=== PATIENT | female | born 1965 | race Caucasian/White ===

== ENCOUNTER 2023-12-14 16:32 | Inpatient (IN) | payer OTHER, SELFPAY ==
[2023-12-14] VITALS (7 sets, daily range): BP systolic 100–124; BP diastolic 69–86; BMI 31.2; BMI 31.5
--- NOTE | 2023-12-14 13:18 | ED.GENMED ---
History of Present Illness
<Prince Manjarrez PA-C - Last Filed: 12/14/23 16:14>
General
Chief Complaint: Swelling
Source: patient
Time Seen by Provider: 12/14/23 13:03
Travel History
Have you had any contact with someone who has COVID-19?: No
Do you have any symptoms of coronavirus? Fever > 100 degrees, chills, cough, shortness of breath, sore throat, loss of taste or smell, muscle aches, or headache?: No
History of Present Illness
History of Present Illness:
58-year-old female with past medical history of rheumatoid arthritis/osteoarthritis/chronic musculoskeletal pain, hepatitis C (was treated at [facility] and told she was cured) presenting to the emergency department for evaluation of
generalized edema noting that the swelling seems to be worse along her abdomen but also noting edema to the bilateral feet/ankles, exertional shortness of breath and scattered areas of ecchymosis that are mostly concentrated along her back that she
states all started acutely around 1 week ago. Also endorses that she feels her skin is a little bit more pale than usual. She denies any melena or hematochezia, traumatic injuries, chest pain, palpitations, diaphoresis. denies any history of
similar. Patient's social history was significant for smoking half pack per day, weekend drinking noting that she will drink approximately a few shots per day on the weekend and notes a previous history of IV drug abuse but this was many years ago
and denies any recent use. Family history was also significant for her sister passing away at a younger age is unknown what she from did note that patient had a history of alcoholic cirrhosis.
Past History
<Prince Manjarrez PA-C - Last Filed: 12/14/23 16:14>
Past History
ED Past Medical History: GERD, Seizures (Is on Tegretol and states she hasn't had a seizure in over 20 years. ), Psychiatric (depression), Other (Arthritis/osteoarthritis), Other (Previous hepatitis C) and Other (History of chronic low back pain.
Has had pain injections and sees her doctor on a monthly basis for back pain 'stenosis.' She takes oxycodone and hydrocodone for pain.)
ED Past Surgical History: and Orthopedic
Social History
Tobacco: Smoker
Alcohol: Other (Drinks every weekend)
Drug: Former user and IVDA
Personal:
Living: with family
Employment: Employed
Review of Systems
<Prince Manjarrez PA-C - Last Filed: 12/14/23 16:14>
Review of Systems
All Other Systems: ROS reviewed and negative except as documented in HPI and ROS
Phy Exam
<ESTEFANI Sigala Last Filed: 12/14/23 16:14>
Physical Exam
Physical Exam:
GENERAL: Alert , in no apparent distress
EYE: clear conjunctiva b/l
HEAD: NCAT
ENT: o/p clr, mmm.
CARDIAC: Mildly tachycardic rate and rhythm, no murmur
LUNGS: Clear breath sounds bilaterally, no acute respiratory distress, no wheezes/rales/rhonchi
ABDOMEN: Firm and significantly distended with positive fluid wave, without focal tenderness, no r/g, no cvat, There are scattered areas of ecchymosis across the upper abdomen and axillary region
NEUROLOGICAL: Alert and orientedx3
SKIN: Warm and dry, skin intact. anicteric
MUSCULOSKELETAL: trace b/l ankle edema(L>R), well perfused.
PSYCH: Normal and appropriate interaction.
Scores
<ESTEFANI Sigala Last Filed: 12/14/23 16:14>
Heart Failure Risk
Heart Failure Risk Score: Not Applicable
Heart Score for Chest Pain Patients
STEMI patient?: Not applicable
Withdrawal Assessment of Alcohol
Withdrawal Assessment Completed?: Not applicable
Course
<ESTEFANI Sigala Filed: 12/14/23 16:14>
Orders/Labs/Results
Orders:
Orders
12/14/23 13:16
US Abdomen Complete/Upper Urgent
Comment:
Reason For Exam: acute onset distention/ascites
12/14/23 13:17
Electrocardiogram (*1) Stat
Reason for Study: Abdominal Pain
EKG- Treatment ONCE
12/14/23 13:30
Basic Metabolic Panel Urgent
Lipase Urgent
NT-proBNP Urgent
PTT Urgent
Prothrombin Time Urgent
12/14/23 13:31
Complete Blood Count/With Diff Urgent
12/14/23 15:35
Type+Screen Urgent
BBK Wristband Number:
[id number] Urgent
Urinalysis Reflex To Culture Urgent
Date Specimen was Collected: 12/14/23
Time Specimen was Collected: 15:13
Urine Microscopic Reflex Cult Urgent
Urine Culture Urgent
ANALI Source: U
Specimen Description:
Date Specimen was Collected: 12/14/23
Time Specimen was Collected: 15:13
Abnormal Lab Results
12/14/23 12/14/23 12/14/23
13:30 13:31 15:35
RBC 2.80 L 10^6/uL
(4.20-5.40)
Hgb 9.5 L g/dL
(12.0-16.0)
Hct 28.9 L %
(37.0-47.0)
MCV 103.2 H fL
(81.0-99.0)
MCH 33.9 H pg
(27.0-31.0)
MCHC 32.9 L g/dL
(33.0-37.0)
RDW 16.0 H %
(11.5-14.5)
Plt Count 82 L 10^3/uL
(130-400)
Absolute Lymphs (auto) 0.8 L 10^3/uL
(1.2-3.4)
Absolute Monos (auto) 0.8 H 10^3/uL
(0.1-0.6)
Lymphocytes % 15.0 L %
(20.5-51.1)
Monocytes % 14.5 H %
(1.7-9.3)
PT 17.6 H Sec
(11.4-14.6)
APTT 40.3 H Sec
(23.4-35.0)
Sodium 132 L mmol/L
(135-145)
Creatinine 0.5 L mg/dL
(0.6-1.0)
Glucose 107 H mg/dl
(70-99)
Calcium 8.2 L mg/dl
(8.4-10.2)
Total Bilirubin 1.5 H mg/dl
(0.2-1.3)
Direct Bilirubin 0.9 H mg/dl
(0.0-0.4)
AST 98 H U/L
(14-36)
Alkaline Phosphatase 146 H U/L
(38-126)
Albumin 3.0 L g/dl
(3.5-5.0)
Urine Ketones Trace A
(Negative)
Urine Nitrite (Reflex) Positive A
(Negative)
Urine Bilirubin 2+ A
(Negative)
Urine Urobilinogen 3+ A
(Neg - 1+)
Leukocyte Esterase Rfl 1+ A
(Negative)
12/14/23 13:31
12/14/23 13:30
Vital Signs
Initial and Last Documented VS:
Initial Vital Signs
Temp Pulse Resp BP Pulse Ox
98.1 F 113 16 121/72 95
12/14/23 12:06 12/14/23 12:06 12/14/23 12:06 12/14/23 12:06 12/14/23 12:06
Last Documented Vital Signs
Temp Pulse Resp BP Pulse Ox
98.1 F 100 13 109/78 88
12/14/23 12:06 12/14/23 14:15 12/14/23 14:15 12/14/23 14:00 12/14/23 14:15
Environmental Restoration Planner consulted with Physician
Environmental Restoration Planner consulted with physician?: Yes
Name of Physician Consulted: Destiny
<Arturo Dixon, DO - Last Filed: 12/14/23 13:58>
Orders/Labs/Results
Orders:
Orders
12/14/23 13:16
US Abdomen Complete/Upper Urgent
Comment:
Reason For Exam: acute onset distention/ascites
12/14/23 13:17
Electrocardiogram (*1) Stat
Reason for Study: Abdominal Pain
EKG- Treatment ONCE
12/14/23 13:30
Basic Metabolic Panel Urgent
Lipase Urgent
NT-proBNP Urgent
PTT Urgent
Prothrombin Time Urgent
12/14/23 13:31
Complete Blood Count/With Diff Urgent
12/14/23 15:35
Type+Screen Urgent
BBK Wristband Number:
[id number] Urgent
Urinalysis Reflex To Culture Urgent
Date Specimen was Collected: 12/14/23
Time Specimen was Collected: 15:13
Urine Microscopic Reflex Cult Urgent
Urine Culture Urgent
ANALI Source: U
Specimen Description:
Date Specimen was Collected: 12/14/23
Time Specimen was Collected: 15:13
Abnormal Lab Results
12/14/23 12/14/23 12/14/23
13:30 13:31 15:35
RBC 2.80 L 10^6/uL
(4.20-5.40)
Hgb 9.5 L g/dL
(12.0-16.0)
Hct 28.9 L %
(37.0-47.0)
MCV 103.2 H fL
(81.0-99.0)
MCH 33.9 H pg
(27.0-31.0)
MCHC 32.9 L g/dL
(33.0-37.0)
RDW 16.0 H %
(11.5-14.5)
Plt Count 82 L 10^3/uL
(130-400)
Absolute Lymphs (auto) 0.8 L 10^3/uL
(1.2-3.4)
Absolute Monos (auto) 0.8 H 10^3/uL
(0.1-0.6)
Lymphocytes % 15.0 L %
(20.5-51.1)
Monocytes % 14.5 H %
(1.7-9.3)
PT 17.6 H Sec
(11.4-14.6)
APTT 40.3 H Sec
(23.4-35.0)
Sodium 132 L mmol/L
(135-145)
Creatinine 0.5 L mg/dL
(0.6-1.0)
Glucose 107 H mg/dl
(70-99)
Calcium 8.2 L mg/dl
(8.4-10.2)
Total Bilirubin 1.5 H mg/dl
(0.2-1.3)
Direct Bilirubin 0.9 H mg/dl
(0.0-0.4)
AST 98 H U/L
(14-36)
Alkaline Phosphatase 146 H U/L
(38-126)
Albumin 3.0 L g/dl
(3.5-5.0)
Urine Ketones Trace A
(Negative)
Urine Nitrite (Reflex) Positive A
(Negative)
Urine Bilirubin 2+ A
(Negative)
Urine Urobilinogen 3+ A
(Neg - 1+)
Leukocyte Esterase Rfl 1+ A
(Negative)
12/14/23 13:31
12/14/23 13:30
Vital Signs
Initial and Last Documented VS:
Initial Vital Signs
Temp Pulse Resp BP Pulse Ox
98.1 F 113 16 121/72 95
12/14/23 12:06 12/14/23 12:06 12/14/23 12:06 12/14/23 12:06 12/14/23 12:06
Last Documented Vital Signs
Temp Pulse Resp BP Pulse Ox
98.1 F 100 13 109/78 88
12/14/23 12:06 12/14/23 14:15 12/14/23 14:15 12/14/23 14:00 12/14/23 14:15
<Prince Manjarrez PA-C - Last Filed: 12/14/23 16:14>
MDM/Problems Addressed
Differential Diagnosis Includes:
Abdominal ascites, alcohol use, hemolysis, hepatitis, no infectious symptoms to be suggestive of SBP, CHF, valvular disorder, pulmonary hypertension
MDM/Problems Addressed:
58-year-old female presenting to the emergency department for evaluation of abdominal distention, lower extremity edema and exertional shortness of breath that began acutely and worsening over the last week. Patient does have multiple risk factors
for liver disease including alcohol history, history of hepatitis C and family history. Exam seems to be most consistent with abdominal ascites. Will check labs, ultrasound imaging, EKG ordered for the rest of breath. Disposition pending
<Prince Manjarrez PA-C - Last Filed: 12/14/23 16:14>
*Radiology
Radiology exam reviewed: radiology read reviewed (Liver cirrhosis and moderate ascites)
*Pulse Oximetry
Patient hypoxic: no
*EKG
Interpreted by ED Provider?: Yes
Comparison EKG: no changes
Heart Rate: 98
Rate: normal
Rhythm: sinus
[place]: normal axis
Ischemia: no ischemia
*Boiler Technician Interpretation
Rate: tachycardiac
Rhythm: sinus
*Critical Care Note
Total Time (30-74mins, 75-104mins- exclusive of procedures): Not Applicable
Data Reviewed
Review of Other/Old Records Reveals: Labs and Records
Source: patient and records
<Prince Manjarrez PA-C - Last Filed: 12/14/23 16:14>
Patient Management
Discussion with other providers: Hospitalist and Service Center Technician
Escalation/DeEscalation of care consider admission/obs:
I discussed the case with on-call GI physician, Dr. Watkins, likely needs paracentesis. They will consult. Hospitalist is aware and accepts patient for continued evaluation and treatment. Patient's urinalysis did come back nitrite positive and 1+
leukocyte esterase. She does not have any symptoms to be suggestive of a urinary tract infection so will defer antibiotic treatment to hospitalist team.
ED Attending Note
<Prince Manjarrez PA-C - Last Filed: 12/14/23 16:14>
-
Portions of this chart may have been created with voice recognition software.� Occasional wrong word or��sound alike� substitutions may have occurred due to the inherent limitations of voice recognition software.
<Arturo Dixon DO - Last Filed: 12/14/23 13:58>
ED Attending Note
Patient seen and examined by attending physician: Yes
I performed the substantive portion of visit, reviewed & personally made and approve the management plan that is documented in note by myself or MARJORIE.: Yes
ED Attending Note:
I agree with Jaun's note
Patient presents for evaluation of generalized swelling and some shortness of breath patient's noted that her abdomen has become quite swollen over the past couple weeks. Also noted peripheral edema edema of her buttocks
History of hepatitis C but up evidently received treatment for this. Patient does drink but denies daily alcohol use.
General: Awake, Alert, Oriented X3. No acute distress.
Vitals: Mildly tachycardic
Head: Atraumatic
Eyes: Pupils equal, EOMI
Throat: Airway intact, no exudates
Neck: Trachea midline
Lungs: Clear and equal b/l
Heart: Regular rate, no murmurs
Abd: Soft, protuberant abdomen, has significant tenderness, No pulsatile mass
Neuro: Nonfocal
Skin: Warm, dry, no rash
Extremities: pulses equal b/l, 2+ edema. Some telangiectasias noted
Discharge Plan
Departure
Patient Disposition: Admit
Date of Disposition: 12/14/23
Time of Disposition: 15:29
Presentation/result/management discussed w/ accepting MD/DO: Hospitalist
Discharge Problem:
Cirrhosis of liver, Abdominal ascites, Anemia, Thrombocytopenia
Prescriptions:
No Action
quetiapine [Seroquel] 200 MG tablet
200 mg PO HS
sertraline 100 MG tablet
200 mg PO HS
omeprazole 40 MG capsule,delayed release(DR/EC)
40 mg PO DAILY
folic acid 1 mg Tablet
1 mg PO DAILY Qty: 0
hydroxychloroquine 200 MG tablet
200 mg PO BID
pregabalin 300 MG capsule
300 mg PO DAILY
cholecalciferol (vitamin D3) [Vitamin D3] 25 mcg (1,000 unit) Tablet
25 mcg PO DAILY Qty: 0
alendronate [Fosamax] 70 mg Tablet
70 mg PO MO
cyanocobalamin (vitamin B-12) 1,000 mcg Tablet
1,000 mcg PO DAILY
Theragen Tablet
1 tab PO DAILY
phenytoin sodium extended 100 mg capsule
100 mg PO BID
milk thistle 150 mg Capsule
150 mg PO DAILY
potassium 99 mg Tablet
99 mg PO DAILY
calcium carbonate [Calcium 500] 500 mg calcium (1,250 mg) Tablet
500 mg PO DAILY
alprazolam 2 mg tablet
2 mg PO TID
doxycycline hyclate 100 mg Tablet
100 mg PO Q48H
Excedrin Extra Strength 250-250-65 mg Tablet
1 tab PO BID
biotin 5 mg Tablet
5 mg PO DAILY
oxycodone 20 mg Tablet
20 mg PO 5/D
acetaminophen [Tylenol Extra Strength] 500 MG tablet
1,000 mg PO BID
Referrals:
Burton Newman MD [Family Provider] -
Interventions
Interventions:
*Risk Screen - Suicide Last Done: 12/14/23 12:06
*General Assessment Last Done: 12/14/23 12:06
*Neglect/Abuse Screening Last Done: 12/14/23 12:06
ED- Fall Risk Assessment Last Done: 12/14/23 13:15
*ED COVID-19 Vaccine History Last Done: 12/14/23 13:15
ED- Cardiac Assessment Last Done: 12/14/23 13:15
ED- Pulmonary Assessment Last Done: 12/14/23 13:15
ED-Skin Assessment Last Done: 12/14/23 13:15
[2023-12-14 13:45] LABS: % Basophils 0.7 % (0-2); % Eosinophils 2.4 % (0-6); % Immature Granulocytes 0.5 % (0-0.5); % Monocytes 14.5 % (1.7-9.3); % Neutrophils 66.9 % (42.2-75.2); Absolute Eosinophils 0.1 10^3/uL (0-0.7); Absolute Lymphocytes 0.8 10^3/uL (1.2-3.4); Absolute Monocytes 0.8 10^3/uL (0.1-0.6); Absolute Neutrophils 3.7 10^3/uL (1.4-6.5); Hematocrit 28.9 % (37.0-47.0); Hemoglobin 9.5 g/dL (12.0-16.0); Mean Corp Hgb Conc. 32.9 g/dL (33.0-37.0); Mean Corpuscular Hgb 33.9 pg (27.0-31.0); Mean Corpuscular Volume 103.2 fL (81.0-99.0); Nucleated Red Blood Cells % 0 %; Platelet Count 82 10^3/uL (130-400); White Blood Cell Count 5.5 10^3/uL (4.8-10.8)
[2023-12-14 13:55] LABS: INR 1.46; PT 17.6 Sec (11.4-14.6)
[2023-12-14 13:57] LABS: APTT 40.3 Sec (23.4-35.0)
[2023-12-14 14:01] LABS: Blood Urea Nitrogen 11 mg/dl (7-17); Calcium 8.2 mg/dl (8.4-10.2); Carbon Dioxide 29 mmol/L (22-30); Chloride 101 mmol/L (98-107); Estimated Creatinine Clearance 113 ml/min; Glucose 107 mg/dl (70-99); Lipase 93 U/L (23-300); Sodium 132 mmol/L (135-145); eGFR > 60.00
[2023-12-14 14:05] LABS: NT-proBNP 142 pg/ml
--- NOTE | 2023-12-14 15:30 | CON.GI ---
Addendum entered and electronically signed by Armin Watkins MD 12/14/23 18:17:
I saw and examined the patient.
The PROJECT CONTROL MANAGER or PA's note was reviewed and I agree with the note.
Comment: 58-year-old female past medical history of hep C with prior treatment with interferon ribavirin in 1998, alcohol abuse, seizure disorder presenting with increased abdominal girth and generalized edema as well as lower extremity edema. She
is in shortness of breath. Her labs are significant for hemoglobin of 9.5 of note in May was 11.7, platelet count 82 down from 131 in May, MCV elevated at 103. INR 1.46, total bilirubin 1.5, AST 98, ALT 22, alk phos 146. She underwent
abdominal ultrasound which showed cirrhosis, small to moderate volume ascites, moderate gallbladder distention, mild splenomegaly. She does admit to taking about 1 g of Tylenol a day and Excedrin regularly.
Based on ultrasound, I suspect she has new onset cirrhosis most likely related to alcohol abuse. Her AST to ALT are 2-1. I also added on an alcohol level and GGT which can be helpful. Paracentesis has been ordered and we will follow-up the fluid
cytology, cell count, protein (I added on protein) and albumin. After the paracentesis, she will need to be placed on diuretics after we ensure there is no SBP.
I will also order a Doppler ultrasound though have low suspicion. Hepatitis studies have been ordered and she will need a hep C viral load as an outpatient. Iron studies have also been ordered.
As an outpatient, she will need an upper endoscopy and colonoscopy for esophageal variceal surveillance and colon cancer screening. I explained to the patient this cannot be done as an inpatient and must be done as an outpatient. I explained the
importance of follow-up and complete alcohol cessation.
I d/w ER Sera SANDHU APN d/w hospitalist as well. Will follow.
Original Note:
Consultation
-
Date/Time Consultation Requested: 12/14/23 1520
Date/Time Consultation Performed: 12/14/23 1530
Requesting Provider: Prince Manjarrez PA-C
Performing Provider: SILVIA Wall, Marley Watkins MD
Reason for Consultation: abdominal distention, concern for cirrhosis
Medical History
Chief Complaint / HPI
Chief Complaint: abdominal distention, LE swelling
History of Present Illness:
Pt is a 58yo presents with hx hep C with prior treatment with interferon and ribavirin in 1998, ETOH abuse, seizures disorder on chronic Dilantin, chronic Doxy for adult Acne, depression, chronic low back pain on chronic narcotics, multiple
vitamin supplement presents to ER with generalized edema with increased swelling with abdomen and lower extremities. She is also noted with shortness of breath and ecchymosis. On admission noted with hbg 9.5 with MCV 103.2, platelets 82,000, Na
132, INR 1.46. Us on admission with concern for moderate to severe hepatic cirrhosis with small to moderate amount of ascites, moderate GB distention and mild splenomegaly.
Pt with no known history cirrhosis but family hx cirrhosis in sister, grandfather and multiple other family members. She current admits to GERD on chronic PPI and mild abd. She denies dysphagia, nausea, vomiting, diarrhea, constipation or
rectal bleeding. No prior EGD or colonoscopy. hx neg Cologuard within last 6 months.
Past Medical History
Past Medical History: GERD, Seizures, Psychiatric (depression) and Other (arthritis, osteoarthritis, hep C with prior treatment, chronic low back pain on narcotics , spinal stenosis )
Past Surgical History: and Orthopedic
Social History
Tobacco: Smoker (1/2 PPD )
Alcohol: Chronic Alcoholic (heavy til 2-3 years ago now 1-2 bottles every 2-3 weeks )
Drug: None
Living: Alone
Employment: Disabled
Family History
Family History: Other (sister, grandfather, aunt with ETOH cirrhosis)
Allergies / Home Medications
Allergy/AdvReac Type Severity Reaction Status Date / Time
carisoprodol [From Soma] Allergy Unknown Verified 12/14/23 12:06
duloxetine [From Cymbalta] Allergy patient no Verified 12/14/23 12:06
aware of
an allergy
to this
medication
mold Allergy sneezing, Verified 12/14/23 12:06
coughing,
headaches
pollen extracts Allergy sneezing,he Verified 12/14/23 12:06
adaches
pseudoephedrine HCl Allergy heart Verified 12/14/23 12:06
[From Sudafed] races,
tingling
DUST Allergy sneezing, Uncoded 12/14/23 12:06
headaches
Medication Instructions Recorded
alprazolam 2 mg tablet,extended 2 mg PO QID 12/13/16
release 24 hr (Xanax XR)
quetiapine 200 mg tablet (Seroquel) 400 mg PO HS 12/13/16
Dilantin: 200 mg PO DAILY 12/10/20
Folic Acid: 1 mg PO DAILY 12/10/20
Vitamin D3: 1,000 units PO DAILY 12/10/20
hydroxychloroquine 200 mg tablet 1 tab PO BID 12/10/20
omeprazole 40 mg capsule,delayed 1 tab PO DAILY 12/10/20
release
oxycodone 15 mg tablet 20 mg PO QID 12/10/20
pregabalin 300 mg capsule 1 tab PO BID 12/10/20
sertraline 100 mg tablet 100 mg PO BID 12/10/20
Belbuca 600 mcg 12/19/20
acetaminophen 500 mg tablet 1,000 mg PO Q6H 12/20/20
(Tylenol Extra Strength)
aspirin 81 mg tablet,delayed 81 mg PO DAILY ##0 12/20/20
release (Adult Aspirin Regimen)
cephalexin 500 mg capsule 500 mg PO QID #20 caps 12/20/20
docusate sodium 100 mg capsule 100 mg PO BID 12/20/20
sennosides 8.6 mg tablet (senna) 2 tab PO BID 12/20/20
Review of Systems
-
History Source: Patient and Family
Constitutional: Reports Weight Gain and Fatigue
EENT: Reports No Symptoms
Respiratory: Reports Trouble Breathing (with distention )
Abdomen/GI: Reports Abdominal Pain (pressure with distention )
Musculoskeletal: Reports Joint Pain (chronic RA )
Skin: Reports No Symptoms
Neurological: Reports Weakness
Endocrine: Reports No Symptoms
Hematologic/Lymphatic: Reports No Symptoms
Vital Signs
Temp Pulse Resp BP Pulse Ox
98.1 F 100 13 109/78 88
12/14/23 12:06 12/14/23 14:15 12/14/23 14:15 12/14/23 14:00 12/14/23 14:15
Physical Exam
Exam
General: Other (pale with distention in abdomen)
HEENT: Normocephalic and Anicteric
Respiratory: Clear
Cardiac: Regular Rhythm
GI: Soft, Non Tender and Non Distended
Musculoskeletal: No Clubbing and No Cyanosis
Skin: Warm and Dry
Neuro: Awake, Alert, AO x 3 and Other (mild tremor )
Psych: Calm
Results
WBC 5.5 10^3/uL (4.8-10.8) 12/14/23 13:31
Hgb 9.5 g/dL (12.0-16.0) L 12/14/23 13:31
Hct 28.9 % (37.0-47.0) L 12/14/23 13:31
MCV 103.2 fL (81.0-99.0) H 12/14/23 13:31
Plt Count 82 10^3/uL (130-400) L 12/14/23 13:31
Absolute Neuts (auto) 3.7 10^3/uL (1.4-6.5) 12/14/23 13:31
PT 17.6 Sec (11.4-14.6) H 12/14/23 13:30
INR 1.46 12/14/23 13:30
APTT 40.3 Sec (23.4-35.0) H 12/14/23 13:30
Sodium 132 mmol/L (135-145) L 12/14/23 13:30
Potassium mmol/L (3.5-5.1) 12/14/23 13:30
Chloride 101 mmol/L (98-107) 12/14/23 13:30
Carbon Dioxide 29 mmol/L (22-30) 12/14/23 13:30
BUN 11 mg/dl (7-17) 12/14/23 13:30
Creatinine 0.5 mg/dL (0.6-1.0) L 12/14/23 13:30
Calcium 8.2 mg/dl (8.4-10.2) L 12/14/23 13:30
Total Bilirubin Cancelled 12/14/23 13:30
AST Cancelled 12/14/23 13:30
ALT Cancelled 12/14/23 13:30
Alkaline Phosphatase Cancelled 12/14/23 13:30
Lipase 93 U/L (23-300) 12/14/23 13:30
Diagnostic Image Results:
12/14/23 US abdomen
1. � MODERATE to SEVERE HEPATIC CIRRHOSIS.
2. � Small to moderate volume of ascites.
3. � Moderate gallbladder distention.
4. � Mild splenomegaly.
Prior GI Procedures:
EGD: none
Colonoscopy: none hx neg cologuard last 6 months
Assessment / Plan
-
Pt is a 58yo presents with hx hep C with prior treatment with interferon and ribavirin in 1998, ETOH abuse, seizures disorder on chronic Dilantin, chronic Doxy for adult Acne, depression, chronic low back pain on chronic narcotics, multiple
vitamin supplement presents to ER with generalized edema with increased swelling with abdomen and lower extremities. She is also noted with shortness of breath and ecchymosis. On admission noted with hbg 9.5 with MCV 103.2, platelets 82,000, Na
132, INR 1.46. Us on admission with concern for moderate to severe hepatic cirrhosis with small to moderate amount of ascites, moderate GB distention and mild splenomegaly.
-new onset ascites/ LE edema with concern for decompensated cirrhosis as noted on US
-thrombocytopenia
-macrocytic anemia
-hyponatremia
-ETOH abuse
-hep C with prior treatment in 1998 with Interferon and Ribavirin
-frequent NSAID and Tylenol use
other medical problems:
-seizure disorder on chronic Dilantin
-RA with prior Humira now off
-chronic Doxycycline for acne
-depression
-chronic back pain with chronic Narcotic use
-tobacco abuse
-anxiety
PLAN:
Etiology of ascites with LE swelling related to decompensation of cirrhosis vs other
agree with para with fluid analysis-- call GI after tap to see in albumin needed
t/c adding Lasix and Aldactone after para
avoid hepatotoxic medications - check Tylenol level with daily use, NSAID avoidance
hepatitis panel and iron studies pending -- will need further OP serology
stressed ETOH and tobacco abstinence
OP EGD for variceal screening and colonoscopy with no hx prior colonoscopy in past
trend labs
add AFP
MELD 17
discussed good nutrition with high calorie snack
recent new medication Zoledronic acid rare cause of liver injury per liver tox
if worsening status may need hepatology evaluation
caution with narcotics and liver disease
family educated on disease process
will follow
-
-
Thank you for consultation and allowing me to participate in the patient's care. Please call the store protection specialist GI physician during the after hours with any questions or concerns.
[2023-12-14 16:01] LABS: Urine Albumin Trace (Neg - Trace); Urine Bilirubin 2+ (Negative); Urine Character Clear (Clear); Urine Color Amber; Urine Glucose Negative (Negative); Urine Ketone Trace (Negative); Urine Leukocyte 1+ (Negative); Urine Nitrite Positive (Negative); Urine Occult Blood Negative (Negative); Urine Specific Gravity 1.025 (<1.030); Urine Urobilinogen 3+ (Neg - 1+)
[2023-12-14 16:08] LABS: ALT (SGPT) 22 U/L (0-35); AST (SGOT) 98 U/L (14-36); Alkaline Phosphatase 146 U/L (38-126); Direct Bilirubin 0.9 mg/dl (0.0-0.4); Total Bilirubin 1.5 mg/dl (0.2-1.3); Total Protein 7.6 g/dl (6.3-8.2)
--- NOTE | 2023-12-14 16:16 | HPS.HSE ---
Family Physician
-
Family Physician: Burton Newman
Chief Complaint
-
Increasing abdominal distention and lower extremity edema
History of Present Illness
Patient presents with progressive weight gain, lower extremity edema, increasing abdominal girth. Abdominal distention. It got worse last week. No abdominal pain. No nausea vomiting. Not much appetite. Having bowel movements without much
change. Denies any blood in the stools.
No fever. She had associated shortness of breath. No chest pain.
She was discovered to have cirrhosis which is new to her as well as abdominal ascites.
Patient has history of hepatitis C treated in 1998 for a year with interferon and oral pills probably ribavirin. She states she is got a clean bill of health afterwards. Based on [facility] she had hepatitis C RNA test requested in 2021 and it was
undetectable.
She did have issues with alcohol abuse. She was drinking heavily till couple of years ago. She states she drinks occasionally. A bottle of vodka in probably 2 to 3 weeks. Last drink on Thursday. No alcohol withdrawal syndrome in the past. She
has a history of chronic epilepsy for which she has been taking Dilantin for 15 years.
History rheumatoid arthritis and was on Humira for a while but stopped because of side effects. She is on hydroxychloroquine. She was advised zoledronic acid by her rheumatology yearly and had 1 dose but had side effects the nature of which she
could not explain; 1 of it is here for follow.
Medical History
Past Medical History
Past Medical History: Reports GERD, Seizures, Psychiatric (Depression) and Other (Chronic pain syndrome; on doxycycline for acne indication; Hep C tx)
Past Surgical History: Reports None
Social History
Tobacco: Non-smoker
Alcohol: Occasional
Drug: None
Living: With Family
Family History
Family History: Not pertinent
Allergies / Home Medications
Allergies reflects when Allergies were last updated in [facility].
Home Medications with original date entered in [facility]
Allergy/Medication List:
Allergies
Allergy/AdvReac Type Severity Reaction Status Date / Time
carisoprodol [From Soma] Allergy Unknown Verified 12/14/23 12:06
duloxetine [From Cymbalta] Allergy patient no Verified 12/14/23 12:06
aware of
an allergy
to this
medication
mold Allergy sneezing, Verified 12/14/23 12:06
coughing,
headaches
pollen extracts Allergy sneezing,he Verified 12/14/23 12:06
adaches
pseudoephedrine HCl Allergy heart Verified 12/14/23 12:06
[From Sudafed] races,
tingling
DUST Allergy sneezing, Uncoded 12/14/23 12:06
headaches
Home Medications
quetiapine 200 mg tablet (Seroquel) 200 mg PO HS 12/13/16
cholecalciferol (vitamin D3) 25 mcg (1,000 unit) tablet (Vitamin D3) 25 mcg PO DAILY ##0 12/10/20
folic acid 1 mg tablet 1 mg PO DAILY ##0 12/10/20
hydroxychloroquine 200 mg tablet 200 mg PO BID 12/10/20
omeprazole 40 mg capsule,delayed release 40 mg PO DAILY 12/10/20
pregabalin 300 mg capsule 300 mg PO DAILY 12/10/20
sertraline 100 mg tablet 200 mg PO HS 12/10/20
acetaminophen 500 mg tablet (Tylenol Extra Strength) 1,000 mg PO BID 12/14/23
alendronate 70 mg tablet (Fosamax) 70 mg PO MO 12/14/23
alprazolam 2 mg tablet 2 mg PO TID 12/14/23
msrrzgm-kdrpyyzzvredp-cucsjwmm 250 mg-250 mg-65 mg tablet (Excedrin Extra Strength) 1 tab PO BID 12/14/23
biotin 5 mg tablet 5 mg PO DAILY 12/14/23
calcium carbonate 500 mg calcium (1,250 mg) tablet 500 mg PO DAILY 12/14/23
cyanocobalamin (vitamin B-12) 1,000 mcg tablet 1,000 mcg PO DAILY 12/14/23
doxycycline hyclate 100 mg tablet 100 mg PO Q48H 12/14/23
milk thistle 150 mg capsule 150 mg PO DAILY 12/14/23
oxycodone 20 mg tablet 20 mg PO 5/D 12/14/23
phenytoin sodium extended 100 mg capsule 100 mg PO BID 12/14/23
potassium 99 mg tablet 99 mg PO DAILY 12/14/23
therapeutic multivitamin 1 tab PO DAILY 12/14/23
Review of Systems
-
A 12 point ROS was completed and negative except as noted: Yes
Physical Exam
Vital Signs
Vital Signs
Temp Pulse Resp BP Pulse Ox
98.1 F 100 13 109/78 88
12/14/23 12:06 12/14/23 14:15 12/14/23 14:15 12/14/23 14:00 12/14/23 14:15
Physical Exam
General: No Apparent Distress and Comfortable
HEENT: Moist mucous membranes
Respiratory: Clear
Cardiac: S1/S2 and Regular Rhythm
GI: Soft, Non Tender, Normal Bowel Sounds and Distended
Musculoskeletal: Edema, Left Lower Extremity and Edema, Right Lower Extremity (1+)
Skin: Warm
Neuro: AO x 3 and No Motor Deficits; No Tremors
Psych: Calm; No Confused or Agitated
Laboratory Results
-
12/14/23 13:31
12/14/23 13:30
Laboratory Results
PT 17.6 Sec (11.4-14.6) H 12/14/23 13:30
INR 1.46 12/14/23 13:30
APTT 40.3 Sec (23.4-35.0) H 12/14/23 13:30
Total Bilirubin 1.5 mg/dl (0.2-1.3) H 12/14/23 15:35
AST 98 U/L (14-36) H 12/14/23 15:35
ALT 22 U/L (0-35) 12/14/23 15:35
Alkaline Phosphatase 146 U/L (38-126) H 12/14/23 15:35
Lipase 93 U/L (23-300) 12/14/23 13:30
Data Reviewed
-
Ultrasound: Report Reviewed by me (abdomen)
Lab Data: Labs Reviewed by me
Impression/Plan
-
Acute new decompensated liver disease. Patient with cirrhotic changes noted on the liver ultrasound ; abdominal ascites noted. Patient with a remote history of hepatitis C which was treated and also had IV alcohol use within the past 2 years.
Unclear reason for decompensation now. She is not toxic. No asterixis. No obvious external bleeding based on history. Admit to hospital for diagnostic and therapeutic purposes. Consult IR for diagnostic and therapeutic paracentesis. Consult
GI. Hold on diuretics till creatinine is followed with paracentesis.
Patient is also on a daily regular Tylenol and as well as as needed Fioricet which has acetaminophen in it. Check Tylenol level.
Check hepatitis panel.
Macrocytic anemia-in view of liver disease rule out GI bleed. Check iron stores, heme test stools, vitamin B12.
Thrombocytopenia-suspect secondary to cirrhosis.
Kkpdrqcbkmow-xzkh-ljhnopt secondary to liver disease. Check urine lites. Continue to follow.FR for now.
Chronic pain syndrome-continue with her home regimen
Seizure disorder-continue with phenytoin
Depression-continue with her home medication.
Full code
[2023-12-14 16:17] LABS: Urine Squamous Cell 0-2 /LPF (Few)
[2023-12-14 16:18] LABS: Urine Bacteria Few (Negative); Urine Mucus Few; Urine Red Blood Cell 0-2 /HPF (0-2)
[2023-12-14 16:19] LABS: Urine Hyaline Cast 0-2 /LPF (0-2)
[2023-12-14 17:12] LABS: Acetaminophen < 10 ug/ml (10-30)
--- NOTE | 2023-12-14 17:30 | TRANSFER ---
Pt admitted from ED into room 437-2. Pt ambulated from stretcher to bed with assistance. AAOx3. Pt agitated, saying she is hungry and needs to get her meds. C/o of generalized pain throughout body. Awaiting medication verification from pharmacy,
menu provided with phone number for kitchen. Will await further orders.
[2023-12-14 17:38] LABS: Alcohol None Detected
[2023-12-14] MEDS: VITAMIN D3 (cholecalciferol) 25 MCG PO (17:47)
[2023-12-14] MEDS: FOLVITE 1 MG PO (17:47)
[2023-12-14] MEDS: ROXICODONE 20 MG PO ×2 (17:47→21:13)
[2023-12-14] MEDS: LYRICA 300 MG PO (17:47)
[2023-12-14] MEDS: THERAGRAN 1 TABLET PO (17:47)
[2023-12-14] MEDS: VITAMIN B-12 1000 MCG PO (17:47)
[2023-12-14 18:29] LABS: GGTP 304 U/L (12-43)
[2023-12-14 18:48] LABS: AFP Male/Tumor Marker 1.26 ng/ml
[2023-12-14] MEDS: DILANTIN 100 MG PO (19:37)
[2023-12-14] MEDS: PLAQUENIL 200 MG PO (19:37)
[2023-12-14] MEDS: ZOLOFT 200 MG PO (21:13)
[2023-12-14] MEDS: XANAX 2 MG PO (21:13)
[2023-12-14] MEDS: SEROQUEL 200 MG PO (21:13)
[2023-12-15] MEDS: TYLENOL 650 MG PO ×2 (03:20→20:21)
[2023-12-15 07:00] VITALS: BP 123/70
[2023-12-15 07:51] LABS: Reticulocyte Count 3.3 % (0.4-2.8)
[2023-12-15 07:56] LABS: Urine Sodium < 5 mmol/L (30-90)
[2023-12-15 08:00] LABS: Osmolality Urine 265 mOsm/kg (300-900)
[2023-12-15] MEDS: DILANTIN 100 MG PO ×2 (08:20→19:15)
[2023-12-15] MEDS: PLAQUENIL 200 MG PO ×2 (08:20→19:15)
[2023-12-15] MEDS: ROXICODONE 20 MG PO ×5 (08:20→21:11)
[2023-12-15] MEDS: VITAMIN B-12 1000 MCG PO (08:20)
[2023-12-15] MEDS: PROTONIX 40 MG PO (08:20)
[2023-12-15] MEDS: VIBRAMYCIN 100 MG PO (08:21)
[2023-12-15] MEDS: OSCAL CAL 500 500 MG PO (08:21)
[2023-12-15] MEDS: FOLVITE 1 MG PO (08:21)
[2023-12-15] MEDS: LYRICA 300 MG PO (08:21)
[2023-12-15] MEDS: XANAX 2 MG PO ×3 (08:21→21:11)
[2023-12-15] MEDS: THERAGRAN 1 TABLET PO (08:21)
[2023-12-15] MEDS: VITAMIN D3 (cholecalciferol) 25 MCG PO (08:21)
[2023-12-15 08:23] LABS: Blood Urea Nitrogen 10 mg/dl (7-17); Calcium 8.5 mg/dl (8.4-10.2); Carbon Dioxide 31 mmol/L (22-30); Chloride 100 mmol/L (98-107); Estimated Creatinine Clearance 112 ml/min; Glucose 98 mg/dl (70-99); Iron 106 ug/dl (37-170); Potassium 4.3 mmol/L (3.5-5.1); Sodium 133 mmol/L (135-145); eGFR > 60.00
[2023-12-15 08:34] LABS: Percent Saturation 36 % (20-50); Total Iron Binding Capacity 294 ug/dl (265-497)
[2023-12-15 09:03] LABS: Hepatitis B Surface Antigen Negative (Negative)
--- NOTE | 2023-12-15 09:06 | W.PN.GI.CBS2 ---
Addendum entered and electronically signed by Kathryn Parker Do, MD 12/15/23 11:28:
I saw and examined the patient.
The STAFF TECHNOLOGIST's note was reviewed and I agree with the note.
Comment: Jenna feels well. No acute events overnight. Exam with distended abdomen with fluid wave. LE 2+ pitting edema bilaterally. Labs rviewed.
Recommendations
- Index paracentesis today with fluid studies
- Anticipate starting aldactone and lasix pending above
- Will need close GI/liver care
- Due for OP EGD/colon for variceal screening and colon cancer screening
- Also recommend checking hep C viral RNA to document sustained viral clearance. Can also be done OP basis
Will follow with you
Original Note:
Today's Communication / Plan
-
await para results
Assessment / Plan
-
Pt is a 58yo presents with hx hep C with prior treatment with interferon and ribavirin in 1998, ETOH abuse, seizures disorder on chronic Dilantin, chronic Doxy for adult Acne, depression, chronic low back pain on chronic narcotics, multiple
vitamin supplement presents to ER with generalized edema with increased swelling with abdomen and lower extremities. She is also noted with shortness of breath and ecchymosis. On admission noted with hbg 9.5 with MCV 103.2, platelets 82,000, Na
132, INR 1.46. Us on admission with concern for moderate to severe hepatic cirrhosis with small to moderate amount of ascites, moderate GB distention and mild splenomegaly.
-new onset ascites/ LE edema with concern for decompensated cirrhosis as noted on US
-thrombocytopenia
-macrocytic anemia
-hyponatremia
-ETOH abuse
-hep C with prior treatment in 1998 with Interferon and Ribavirin
-frequent NSAID and Tylenol use
other medical problems:
-seizure disorder on chronic Dilantin
-RA with prior Humira now off
-chronic Doxycycline for acne
-depression
-chronic back pain with chronic Narcotic use
-tobacco abuse
-anxiety
PLAN:
Etiology of ascites with LE swelling related to decompensation of cirrhosis vs other
agree with para with fluid analysis-- call GI after tap to see in albumin needed
t/c adding Lasix and Aldactone after para
avoid hepatotoxic medications - check Tylenol level with daily use, NSAID avoidance
hepatitis panel and iron studies pending -- will need further OP serology
stressed ETOH and tobacco abstinence
OP EGD for variceal screening and colonoscopy with no hx prior colonoscopy in past
trend labs
AFP 1.26
MELD 17
Discussed daily weights and 2 gm Na diet
recent new medication Zoledronic acid rare cause of liver injury per liver tox
if worsening status may need hepatology evaluation
caution with narcotics and liver disease
family educated on disease process
will follow
Subjective
Subjective
Date of Service: December 15, 2023
Patient complains of 'tightness of my feet, legs, thighs, butt and abdomen.' She is awaiting paracentesis at this time. Patient states her last ETOH drink was Thursday and consisted of 3-4 shots of Vodka. Discussed at length ETOH cessation, daily
weights and 2 gram Na diet. Luis Carlos is to [employer] scale from [employer] and we discussed reading food labels and also different types of food that are high vs low in Na. She states her daughter is a Vegan and is supportive, I have asked her to ask her
daughter with help with dietary modifications as well as help with sobriety/medical support.
Objective
Data Reviewed
Laboratory Data:
Laboratory Results
12/14/23 13:31
12/15/23 07:21
Laboratory Results
PT 17.6 Sec (11.4-14.6) H 12/14/23 13:30
INR 1.46 12/14/23 13:30
APTT 40.3 Sec (23.4-35.0) H 12/14/23 13:30
Total Bilirubin 1.5 mg/dl (0.2-1.3) H 12/14/23 15:35
AST 98 U/L (14-36) H 12/14/23 15:35
ALT 22 U/L (0-35) 12/14/23 15:35
Alkaline Phosphatase 146 U/L (38-126) H 12/14/23 15:35
Lipase 93 U/L (23-300) 12/14/23 13:30
Vital Signs and I&O:
Vital Signs
Temp Pulse Resp BP Pulse Ox
97.6 F 99 18 123/70 94
12/15/23 07:00 12/15/23 07:00 12/15/23 07:00 12/15/23 07:00 12/15/23 07:00
Physical Exam
Physical Exam
HEENT: Anicteric
Cardiology: Normal Sinus Rhythm
Pulmonary: Clear
GI: Soft, Distended, Non Tender, Fluid Wave and Normal Bowel Sounds
Extremities: Edema (+ edema entire legs with anasarca)
Neuro: Non Focal (no asterixis)
[2023-12-15 09:10] LABS: Ferritin 53.7 ng/ml (11.1-264.0)
[2023-12-15 09:21] LABS: Hepatitis B Core Ab, Total Negative (Negative)
[2023-12-15 09:24] LABS: Vitamin B12 948 pg/ml (239-931)
[2023-12-15 10:19] LABS: Hepatitis C Antibody Reactive (Negative)
[2023-12-15 11:27] VITALS: BP 112/73; BP_SYST 94
[2023-12-15 11:45] LABS: Hepatitis B Surface Antibody Negative
[2023-12-15 12:29] VITALS: BP 112/72; BP_SYST 90
--- NOTE | 2023-12-15 14:04 | W.PN.HOSP.TC ---
Today's Communication/Plan
-
Follow ascitic fluid data
Initiate diuretics when okay from GI standpoint
Assessment / Plan
Assessment / Plan
Acute new decompensated liver disease.� Patient with cirrhotic changes noted on the liver ultrasound ; abdominal ascites noted.� Patient with a remote history of hepatitis C which was treated and also had IV alcohol use within the past 2 years.�
Unclear reason for decompensation now.� She is not toxic.� No asterixis.� No obvious external bleeding based on history.� s/p 3 L ascitic fluid tap -pending data . Appt GI input.� Diuretics per GI.Cr stable. Cr stable after tap.
Patient is also on a daily regular Tylenol and as well as as needed Fioricet which has acetaminophen in it.� Tylenol level<10
Hep C antibody positive but she is treated there. Other hepatitis serologies negative. Check hepatitis C RNA as an outpatient.
Macrocytic anemia-in view of liver disease rule out GI bleed.� No iron deficiency. B12 levels are more than adequate.
Thrombocytopenia-suspect secondary to cirrhosis. Continue to follow
Eexkqcwfinhd-yspc-crlvpju secondary to liver disease.� .� Continue to follow.cw FR f
Chronic pain syndrome-continue with her home regimen
Seizure disorder-continue with phenytoin
Depression-continue with her home medication.
Full code
Anticipated Discharge: 24 - 48 hours
Subjective/Interval History
-
Date of Service: December 15, 2023
Feels much better after 3 L of ascitic fluid tap today.
Still Lower extremity edema.
Denies shortness of breath.
No nausea vomiting.
No fever or chills.
Objective Data
-
Labs:
Laboratory Results
12/15/23
07:21
Sodium 133 L
Potassium 4.3
Chloride 100
Carbon Dioxide 31 H
BUN 10
Creatinine 0.5 L
Glucose 98
Calcium 8.5
Vital Signs:
Vital Signs
Temp Pulse Resp BP Pulse Ox
98.7 F 90 20 112/72 91
12/15/23 11:27 12/15/23 12:29 12/15/23 12:29 12/15/23 12:29 12/15/23 12:29
Review of Systems
-
Respiratory: Denies Cough or Trouble Breathing
Cardiac: Denies Chest Pain
Neuro: Denies Dizzy
Physical Exam
-
General: No Apparent Distress
HEENT: Moist Mucous Membranes
Respiratory: Clear to Auscultation
Cardiac: Regular Rhythm and S1/S2
GI: Soft, Nontender, Normal Bowel Sounds and Distended (improved)
Neuro: AO x 3; Negative Tremors
Psych: Calm
Data Reviewed
-
Labs: Labs Reviewed by me
[2023-12-15 14:21] LABS: Body Fluid Mononuclear 94.3 %; Body Fluid Polymorphonuclear 5.7 %; Body Fluid WBC 159 /CUMM
[2023-12-15 14:22] LABS: Body Fluid Second Tech BP
[2023-12-15 14:42] LABS: Body Fluid Albumin < 1.0 g/dl; Body Fluid Amylase < 30 U/L; Body Fluid Protein 2.2 g/dl
[2023-12-15 15:00] VITALS: BP 117/65
--- NOTE | 2023-12-15 15:07 | CM ---
funeral location manager reviewed patient's chart and met with patient and patient lives alone in a 2 story home, patient is independent with adl's and uses a cane with ambulation. Patient drives. Patient has a prescription plan and patient uses [facility].
PCP: Dr. Newman
Plan; Home when stable, no needs.
[2023-12-15] MEDS: SEROQUEL 200 MG PO (21:11)
[2023-12-15] MEDS: ZOLOFT 200 MG PO (21:11)
[2023-12-15 23:00] VITALS: BP 132/79
[2023-12-16] MEDS: TYLENOL 650 MG PO (04:36)
--- NOTE | 2023-12-16 04:40 | DOWNTIME ---
There was a [employer] Client [employer]rosion Control Specialist Downtime on 12/16/2023 from 0111 to 12/16/2023 at 0405. Downtime documentation of patient's care, including medication administrations, has been reconciled in the electronic record per guidelines. Refer to the
patient's paper chart under the miscellaneous tab to see printed paper medication records and downtime forms.
[2023-12-16 07:00] VITALS: BP 124/67
[2023-12-16 07:02] LABS: Hematocrit 30.5 % (37.0-47.0); Hemoglobin 9.8 g/dL (12.0-16.0); Mean Corp Hgb Conc. 32.1 g/dL (33.0-37.0); Mean Corpuscular Hgb 32.8 pg (27.0-31.0); Mean Platelet Volume 9.7 fL (7.4-10.4); Platelet Count 89 10^3/uL (130-400); Red Blood Cell Count 2.99 10^6/uL (4.20-5.40); Red Cell Dist. Width 15.9 % (11.5-14.5); White Blood Cell Count 4.4 10^3/uL (4.8-10.8)
[2023-12-16 07:23] LABS: Blood Urea Nitrogen 10 mg/dl (7-17); Calcium 8.6 mg/dl (8.4-10.2); Carbon Dioxide 33 mmol/L (22-30); Chloride 102 mmol/L (98-107); Estimated Creatinine Clearance 112 ml/min; Glucose 87 mg/dl (70-99); Potassium 4.2 mmol/L (3.5-5.1); Sodium 136 mmol/L (135-145); eGFR > 60.00
[2023-12-16] MEDS: LYRICA 300 MG PO (08:01)
[2023-12-16] MEDS: DILANTIN 100 MG PO (08:01)
[2023-12-16] MEDS: THERAGRAN 1 TABLET PO (08:01)
[2023-12-16] MEDS: VITAMIN B-12 1000 MCG PO (08:01)
[2023-12-16] MEDS: PROTONIX 40 MG PO (08:01)
[2023-12-16] MEDS: VITAMIN D3 (cholecalciferol) 25 MCG PO (08:01)
[2023-12-16] MEDS: XANAX 2 MG PO ×2 (08:01→15:45)
[2023-12-16] MEDS: ROXICODONE 20 MG PO ×3 (08:08→15:45)
[2023-12-16] MEDS: PLAQUENIL 200 MG PO (08:08)
[2023-12-16] MEDS: FOLVITE 1 MG PO (08:08)
[2023-12-16] MEDS: OSCAL CAL 500 500 MG PO (08:08)
--- NOTE | 2023-12-16 10:41 | W.PN.GI.CBS2 ---
Addendum entered and electronically signed by Kathryn Parker Do, MD 12/16/23 14:53:
I saw and examined the patient.
The SUPERVISOR POULTRY PROCESSING's note was reviewed and I agree with the note.
Comment: She feels well. Abd distension improved s/p 3L paracentesis done 12/15 neg for SBP with high SAAG. Vitals stable, exam NTTP obese abd with fluid wave, mild icterus. labs reviewed MELD 16
Recommendations
- Complete ETOH cessation
- Hep A and B neg
- Check hep C viral load OP basis
- EGD for EV screening and colonoscopy for age appropriate OP screening
- Start low dose diuretics aldactone 50mg and lasix 20mg daily
- CMP labs to be done 1 wk post d/c
- Close OP FU with Dr Watkins or GI SUPERVISOR POULTRY PROCESSING. We will arrange
Ok from GI perspective for hosp d/c today. Will sign off please call for questions
Original Note:
Today's Communication / Plan
-
Will initiate diuretic therapy
Will arrange for close outpatient follow-up
Assessment / Plan
-
Pt is a 58yo presents with hx hep C with prior treatment with interferon and ribavirin in 1998, ETOH abuse, seizures disorder on chronic Dilantin, chronic Doxy for adult Acne, depression, chronic low back pain on chronic narcotics, multiple
vitamin supplement presents to ER with generalized edema with increased swelling with abdomen and lower extremities. She is also noted with shortness of breath and ecchymosis. On admission noted with hbg 9.5 with MCV 103.2, platelets 82,000, Na
132, INR 1.46. Us on admission with concern for moderate to severe hepatic cirrhosis with small to moderate amount of ascites, moderate GB distention and mild splenomegaly.
-new onset ascites/ LE edema with concern for decompensated cirrhosis as noted on US
-thrombocytopenia
-macrocytic anemia
-hyponatremia
-ETOH abuse
-hep C with prior treatment in 1998 with Interferon and Ribavirin
-frequent NSAID and Tylenol use
other medical problems:
-seizure disorder on chronic Dilantin
-RA with prior Humira now off
-chronic Doxycycline for acne
-depression
-chronic back pain with chronic Narcotic use
-tobacco abuse
-anxiety
PLAN:
-Etiology of ascites with LE swelling related to decompensation of cirrhosis vs other
-pt underwent paracentesis 12/15/23 with 3 liters removed
-SAAG >1.1 indicating likely portal hypertension
-MELD 3.0 score 16
-AFP 1.26
-will initiate diuretic therapy - aldactone 50mg and lasix 20mg
-avoid hepatotoxic medications - she reports daily Tylenol use, level was checked and WNL
-NSAID avoidance
-hepatitis panel negative (Hep C ab reactive, treated in 1998)
-iron studies normal
-further laboratory workup, including quantitative HCV RNA, can be ordered outpatient
-stressed ETOH and tobacco abstinence
-OP EGD for variceal screening and colonoscopy with no hx prior colonoscopy in past
-Discussed daily weights and 2 gm Na diet
-recent new medication Zoledronic acid rare cause of liver injury per liver tox
We will set up an office visit with our group in 2-3 weeks for follow-up.
Subjective
Subjective
Date of Service: December 16, 2023
Feels OK, notes symptomatic improvement post-paracentesis yesterday.
She denies abdominal pain, n/v, d/c, fever or chills.
Objective
Data Reviewed
Laboratory Data:
Laboratory Results
12/16/23 06:25
12/16/23 06:25
Laboratory Results
PT 17.6 Sec (11.4-14.6) H 12/14/23 13:30
INR 1.46 12/14/23 13:30
APTT 40.3 Sec (23.4-35.0) H 12/14/23 13:30
Total Bilirubin 1.5 mg/dl (0.2-1.3) H 12/14/23 15:35
AST 98 U/L (14-36) H 12/14/23 15:35
ALT 22 U/L (0-35) 12/14/23 15:35
Alkaline Phosphatase 146 U/L (38-126) H 12/14/23 15:35
Lipase 93 U/L (23-300) 12/14/23 13:30
Vital Signs and I&O:
Vital Signs
Temp Pulse Resp BP Pulse Ox
98.2 F 80 18 124/67 96
12/16/23 07:00 12/16/23 07:00 12/16/23 07:00 12/16/23 07:00 12/16/23 07:00
I&O
12/15/23 12/16/23 12/17/23
06:59 06:59 06:59
Intake Total 420 / 420
Balance 420 / 420
Physical Exam
Physical Exam
HEENT: Anicteric
Cardiology: Normal Sinus Rhythm
Pulmonary: Clear
GI: Soft, Distended, Non Tender and Normal Bowel Sounds
Extremities: No Edema (bilateral lower extremities without edema)
--- NOTE | 2023-12-16 11:09 | CM ---
recycling manager reviewed patient's chart and met with patient and patient is ambulatory in room, plan is to home when stable.
Plan; Home when stable.
--- NOTE | 2023-12-16 13:01 | W.PN.HOSP.TC ---
Addendum entered and electronically signed by Eliud Almazan MD 12/18/23 15:46:
Chronic pain syndrome on chronic home opioid treatment only.
Original Note:
Today's Communication/Plan
-
DC
Assessment / Plan
Assessment / Plan
Acute new decompensated liver disease.� Patient with cirrhotic changes noted on the liver ultrasound ; abdominal ascites noted.� Patient with a remote history of hepatitis C which was treated and also had IV alcohol use within the past 2 years.�
Unclear reason for decompensation now.� She is not toxic.� No asterixis.� No obvious external bleeding based on history.� s/p 3 L ascitic fluid tap -labs indicative of portal hypertension and no SBP. Appt GI input.� Diuretics per GI.Cr stable. Cr
stable after tap.
Patient is also on a daily regular Tylenol and as well as as needed Fioricet which has acetaminophen in it.� Tylenol level<10
Hep C antibody positive but she is treated there. Other hepatitis serologies negative. Check hepatitis C RNA as an outpatient.
Macrocytic anemia-in view of liver disease rule out GI bleed.� No iron deficiency. B12 levels are more than adequate.
Thrombocytopenia-suspect secondary to cirrhosis. Continue to follow
Gcpgzzopnlwc-gbrm-yvhhker secondary to liver disease.� .� Continue to follow.cw FR f
Chronic pain syndrome-continue with her home regimen
Seizure disorder-continue with phenytoin
Depression-continue with her home medication.
Full code
DC home if okay from GI standpoint
Anticipated Discharge: Today
Subjective/Interval History
-
Date of Service: December 16, 2023
Voices no new specific complaints. No abdominal pain. No nausea vomiting.
Objective Data
-
Labs:
Laboratory Results
12/16/23
06:25
WBC 4.4 L
Hgb 9.8 L
Hct 30.5 L
Plt Count 89 L
Sodium 136
Potassium 4.2
Chloride 102
Carbon Dioxide 33 H
BUN 10
Creatinine 0.5 L
Glucose 87
Calcium 8.6
Vital Signs:
Vital Signs
Temp Pulse Resp BP Pulse Ox
98.2 F 80 18 124/67 96
12/16/23 07:00 12/16/23 07:00 12/16/23 07:00 12/16/23 07:00 12/16/23 07:00
I&O
12/15/23 12/16/23 12/17/23
06:59 06:59 06:59
Intake Total 420 / 420
Balance 420 / 420
Review of Systems
-
Constitutional: Denies Fever
Respiratory: Denies Trouble Breathing
Cardiac: Denies Chest Pain
Neuro: Denies Dizzy
Physical Exam
-
General: No Apparent Distress
HEENT: Moist Mucous Membranes
Respiratory: Clear to Auscultation
Cardiac: Regular Rhythm and S1/S2
GI: Soft, Nontender, Normal Bowel Sounds and Distended (much improved compared to [employer])
Musculoskeletal: Edema, Right Lower Extrem and Edema, Left Lower Extrem
Neuro: AO x 3
Data Reviewed
-
Labs: Labs Reviewed by me
[2023-12-16] MEDS: ALDACTONE 50 MG PO (13:08)
[2023-12-16] MEDS: LASIX 20 MG PO (13:08)
--- NOTE | 2023-12-16 13:52 | PN.CDI ---
CDI
- -
CDI:
Physician Documentation Request
Admit Date: 12/14/23 16:32
Dear Doctor Tha,
Please review the following and provide your response in the progress notes.
Clinical Indicators:
- 12/16 PN 'Chronic pain syndrome-continue with her home regimen'
- 12/16 GI 'chronic back pain with chronic Narcotic use'
- 12/14-12/16 20mg Oxycodone given x 9
If possible, please provide further specificity as outlined below:
Opioid use with or without dependence
Opioid use only
Other
Use of terms such as suspected, likely, concern for, or probable (associated with a specific diagnosis that is being evaluated, monitored, or treated as if it exists) are acceptable and can be coded in the inpatient setting, when documented at the
time of discharge.
Thank you,
Ancelmo Reese RN
CDI Specialist
Please use your independent medical judgment in providing your response.
[2023-12-16 15:00] VITALS: BP 110/63
--- NOTE | 2023-12-16 15:38 | W.DS.TRANS ---
DC Summary - Crate Opener
-
Discharge Instructions:
Discharge Diagnosis/Procedures Cirrhosis with Decompensation and ascites s/p
first tap
Diet 2 Gram Sodium,Restrict fluids to 64 oz
Activity As tolerated
Driving Restrictions As prior to admission
Bathing Restrictions None
Blood Work CMP blood work -arrange through your PCP
Specialty Instructions Weigh Daily
Instructions:
Stand-Alone Forms:
Changes to Home Medications: Yes
Discharge Medications:
DC Medications w/original date entered in [employer]
quetiapine 200 mg tablet (Seroquel) 200 mg PO HS depression 12/13/16
cholecalciferol (vitamin D3) 25 mcg (1,000 unit) tablet (Vitamin D3) 25 mcg PO DAILY supplement ##0 12/10/20
folic acid 1 mg tablet 1 mg PO DAILY supplement ##0 12/10/20
hydroxychloroquine 200 mg tablet 200 mg PO BID rheumatoid arthritis 12/10/20
omeprazole 40 mg capsule,delayed release 40 mg PO DAILY Gastrointestinal Issue 12/10/20
pregabalin 300 mg capsule 300 mg PO DAILY seizures/pain 12/10/20
sertraline 100 mg tablet 200 mg PO HS depression 12/10/20
alendronate 70 mg tablet (Fosamax) 70 mg PO MO osteoporosis 12/14/23
alprazolam 2 mg tablet 2 mg PO TID anxiety 12/14/23
biotin 5 mg tablet 5 mg PO DAILY supplement 12/14/23
calcium carbonate 500 mg calcium (1,250 mg) tablet 500 mg PO DAILY supplement 12/14/23
cyanocobalamin (vitamin B-12) 1,000 mcg tablet 1,000 mcg PO DAILY supplement 12/14/23
doxycycline hyclate 100 mg tablet 100 mg PO Q48H acne 12/14/23
milk thistle 150 mg capsule 150 mg PO DAILY Supplement 12/14/23
oxycodone 20 mg tablet 20 mg PO 5/D pain 12/14/23
phenytoin sodium extended 100 mg capsule 100 mg PO BID seizures 12/14/23
therapeutic multivitamin 1 tab PO DAILY supplement 12/14/23
xmjksxn-imevzqqwcmsqp-evufbbys 250 mg-250 mg-65 mg tablet (Excedrin Extra Strength) 1 tab PO BID PRN headache/pain #0 tabs 12/16/23
furosemide 20 mg tablet 20 mg PO DAILY #30 tabs 12/16/23
spironolactone 50 mg tablet 50 mg PO DAILY #30 tabs 12/16/23
Home Medication Changes
Medication-Lasix, spironolactone
Pending Results: No
--- NOTE | 2023-12-16 16:13 | W.DCSUMMARY ---
Discharge Summary
Discharge Data
Date of Admission: 12/14/23
Date of Discharge: 12/16/23
-
Pending Results: No
Hospital Course
Primary diagnosis:
New onset of ascites secondary decompensated cirrhosis
Macrocytic anemia
Thrombocytopenia
Secondary diagnosis:
History of hepatitis C and treatments in 1998
History of alcohol use disorder
Depression
Chronic doxycycline for acne
Rheumatoid arthritis with prior Humira treatments
Hospital course:
Patient presented with abdominal distention found to have new ascites. Was For 3 L. SAAG gradient indicates portal hypertension. No evidence of SBP. Abdominal of liver shows cirrhosis morphology. She had a prior history of hepatitis C which was
treated successfully. Hepatitis screen was negative except for hepatitis C antibody. She needs an outpatient hepatitis C RNA levels. Doppler ultrasound of the hepatic vessels showed no thrombosis.
She had associated microcytic anemia with thrombocytopenia.
Unclear etiology for cirrhosis but with prior hepatitis C treatments and alcohol use story concerning for their role in etiology. She was seen by GI. They started on diuretics -lasix and aldactone. They will follow her as an outpatient for
further workup. Advised to repeat CMP in a week.
With regards to alcohol use she was using heavily till 2 years ago. Now she states she is doing occasionally. She was advised to completely stop using alcohol with her cirrhotic liver and decompensation.
She would require upper GI for variceal screening.
Consultants on board:
Gastroenterology-Dr. Gomez
Discharge Plan
-
Patient Disposition: Home (Routine Discharge)
Discharge Diagnosis/Procedures: Cirrhosis with Decompensation and ascites s/p first tap
Diet: 2 Gram Sodium and Restrict fluids to 64 oz
Activity: As tolerated
Driving Restrictions: As prior to admission
Bathing Restrictions: None
Blood Work: CMP blood work -arrange through your PCP
Specialty Instructions: Weigh Daily- Call MD for wt gain/loss 3 lbs overnight/5 lbs in 1 week
Referrals:
Burton Newman MD [Family Provider] - in less than 1 week
Bianka Hollins PA-C [Specified Professional Personl] - 01/13/24 11:30 am
Prescriptions:
New
furosemide 20 mg Tablet
20 mg PO DAILY Qty: 30 0RF
spironolactone 50 mg Tablet
50 mg PO DAILY Qty: 30 0RF
Continued
quetiapine [Seroquel] 200 MG tablet
200 mg PO HS
sertraline 100 MG tablet
200 mg PO HS
omeprazole 40 MG capsule,delayed release(DR/EC)
40 mg PO DAILY
folic acid 1 mg Tablet
1 mg PO DAILY Qty: 0
hydroxychloroquine 200 MG tablet
200 mg PO BID
pregabalin 300 MG capsule
300 mg PO DAILY
cholecalciferol (vitamin D3) [Vitamin D3] 25 mcg (1,000 unit) Tablet
25 mcg PO DAILY Qty: 0
alendronate [Fosamax] 70 mg Tablet
70 mg PO MO
cyanocobalamin (vitamin B-12) 1,000 mcg Tablet
1,000 mcg PO DAILY
therapeutic multivitamin Tablet
1 tab PO DAILY
phenytoin sodium extended 100 mg capsule
100 mg PO BID
milk thistle 150 mg Capsule
150 mg PO DAILY
calcium carbonate 500 mg calcium (1,250 mg) Tablet
500 mg PO DAILY
alprazolam 2 mg tablet
2 mg PO TID
doxycycline hyclate 100 mg Tablet
100 mg PO Q48H
biotin 5 mg Tablet
5 mg PO DAILY
oxycodone 20 mg Tablet
20 mg PO 5/D
Changed
Excedrin Extra Strength 250-250-65 mg Tablet
1 tab PO BID PRN (Reason: headache/pain ) Qty: 0 0RF
Discontinued
potassium 99 mg Tablet
99 mg PO DAILY
acetaminophen [Tylenol Extra Strength] 500 MG tablet
1,000 mg PO BID
Discharge Orders:
Discharge Patient (As Directed); Ordered 12/16/23
Ordered By: Eliud Almazan
== END 2023-12-16 17:28 | disposition home or self-care (01) | DRG 433 ==
LOC: 4 WEST ACU 16:32
PROVIDERS: Physician Assistant Medical; Radiology Vascular & Interventional Radiology; ADMITTING PHYSICIAN Internal Medicine; CONSULT PHYSICIAN Internal Medicine Gastroenterology; EMERGENCY PHYSICIAN Emergency Medicine; FAMILY PHYSICIAN Family Medicine
PROC: 0W9G3ZX Drainage of Peritoneal Cavity, Percutaneous Approach, Diagnostic (ICD-10-PCS; 2023-12-15)
DX: K74.69 Other cirrhosis of liver (principal); E87.1 Hypo-osmolality and hyponatremia; K76.6 Portal hypertension; G89.4 Chronic pain syndrome; M06.9 Rheumatoid arthritis, unspecified; M79.18 Myalgia, other site; M19.90 Unspecified osteoarthritis, unspecified site; F17.210 Nicotine dependence, cigarettes, uncomplicated; F19.91 Other psychoactive substance use, unspecified, in remission; K21.9 Gastro-esophageal reflux disease without esophagitis; F32.A Depression, unspecified; M54.50 Low back pain, unspecified; D50.9 Iron deficiency anemia, unspecified; D53.9 Nutritional anemia, unspecified; D69.6 Thrombocytopenia, unspecified; G40.909 Epilepsy, unspecified, not intractable, without status epilepticus; J30.89 Other allergic rhinitis; F10.10 Alcohol abuse, uncomplicated; K82.8 Other specified diseases of gallbladder; R16.1 Splenomegaly, not elsewhere classified; F41.9 Anxiety disorder, unspecified; M54.9 Dorsalgia, unspecified; J30.1 Allergic rhinitis due to pollen; Z86.19 Personal history of other infectious and parasitic diseases; Z88.8 Allergy status to other drugs, medicaments and biological substances; Z79.891 Long term (current) use of opiate analgesic
CPT/HCPCS: 88305; 49083; 76700; 80048; 80076; 80143; 81003; 81015; 82042; 82077; 82105; 82150; 82607; 82728; 82977; 83540; 83550; 83690; 83880; 83935; 84157; 84300; 85025; 85027; 85045; 85610; 85730; 86704; 86706; 86803; 86850; 86900; 86901; 87015; 87070; 87086; 87205; 87340; 88112; 89051; 93005; 93975; 99285; 99406

== ENCOUNTER → 2023-12-23 13:30 | Outpatient (REF) | payer OTHER, SELFPAY ==
[2023-12-23 14:06] LABS: % Basophils 0.9 % (0-2); % Eosinophils 1.8 % (0-6); % Immature Granulocytes 0.4 % (0-0.5); % Monocytes 16.3 % (1.7-9.3); % Neutrophils 61.6 % (42.2-75.2); Absolute Eosinophils 0.1 10^3/uL (0-0.7); Absolute Lymphocytes 0.9 10^3/uL (1.2-3.4); Absolute Monocytes 0.7 10^3/uL (0.1-0.6); Absolute Neutrophils 2.8 10^3/uL (1.4-6.5); Hematocrit 31.5 % (37.0-47.0); Hemoglobin 10.3 g/dL (12.0-16.0); Mean Corp Hgb Conc. 32.7 g/dL (33.0-37.0); Mean Corpuscular Hgb 32.7 pg (27.0-31.0); Nucleated Red Blood Cells % 0 %; Platelet Count 101 10^3/uL (130-400); Red Blood Cell Count 3.15 10^6/uL (4.20-5.40); Red Cell Dist. Width 15.1 % (11.5-14.5); White Blood Cell Count 4.5 10^3/uL (4.8-10.8)
[2023-12-23 14:15] LABS: Erythrocyte Sed Rate 82 mm/hour (0-20)
[2023-12-23 14:28] LABS: ALT (SGPT) 19 U/L (0-35); AST (SGOT) 78 U/L (14-36); Albumin 2.9 g/dl (3.5-5.0); Alkaline Phosphatase 148 U/L (38-126); Blood Urea Nitrogen 7 mg/dl (7-17); Calcium 8.2 mg/dl (8.4-10.2); Carbon Dioxide 26 mmol/L (22-30); Chloride 105 mmol/L (98-107); Glucose 109 mg/dl (70-99); Potassium 3.8 mmol/L (3.5-5.1); Sodium 135 mmol/L (135-145); Total Bilirubin 0.9 mg/dl (0.2-1.3); Total Protein 7.4 g/dl (6.3-8.2); eGFR > 60.00
[2023-12-23 15:02] LABS: TSH 0.12 uIU/ml (0.47-4.68)
[2023-12-26 02:54] LABS: ANA, IgG Reflex to HEp-2 None Detected (None Detected)
== END ==
LOC: REG 13:30
PROVIDERS: ATTENDING PHYSICIAN Internal Medicine Rheumatology; FAMILY PHYSICIAN Family Medicine; REFERRING PHYSICIAN Physician Assistant
DX: K74.60 Unspecified cirrhosis of liver (principal); M06.00 Rheumatoid arthritis without rheumatoid factor, unspecified site; M81.0 Age-related osteoporosis without current pathological fracture; Z51.81 Encounter for therapeutic drug level monitoring
CPT/HCPCS: 36415; 80053; 84443; 85025; 85652; 86038; 86140

== ENCOUNTER → 2024-01-05 10:09 | Outpatient (REF) | payer OTHER, SELFPAY ==
[2024-01-05 11:32] LABS: % Basophils 1.4 % (0-2); % Eosinophils 4.3 % (0-6); % Immature Granulocytes 0.2 % (0-0.5); % Lymphocytes 24.3 % (20.5-51.1); % Monocytes 11.3 % (1.7-9.3); % Neutrophils 58.5 % (42.2-75.2); Absolute Basophils 0.1 10^3/uL (0-0.2); Absolute Eosinophils 0.2 10^3/uL (0-0.7); Absolute Monocytes 0.5 10^3/uL (0.1-0.6); Absolute Neutrophils 2.5 10^3/uL (1.4-6.5); Hematocrit 31.7 % (37.0-47.0); Hemoglobin 10.7 g/dL (12.0-16.0); Mean Corp Hgb Conc. 33.8 g/dL (33.0-37.0); Mean Corpuscular Hgb 32.2 pg (27.0-31.0); Mean Corpuscular Volume 95.5 fL (81.0-99.0); Mean Platelet Volume 10.2 fL (7.4-10.4); Nucleated Red Blood Cells % 0 %; Platelet Count 108 10^3/uL (130-400); Red Blood Cell Count 3.32 10^6/uL (4.20-5.40); Red Cell Dist. Width 13.9 % (11.5-14.5); White Blood Cell Count 4.2 10^3/uL (4.8-10.8)
[2024-01-05 11:42] LABS: INR 1.39; PT 16.9 Sec (11.4-14.6)
[2024-01-05 11:43] LABS: APTT 43.1 Sec (23.4-35.0)
[2024-01-05 11:59] LABS: ALT (SGPT) 14 U/L (0-35); AST (SGOT) 56 U/L (14-36); Albumin 3.1 g/dl (3.5-5.0); Alkaline Phosphatase 119 U/L (38-126); Blood Urea Nitrogen 8 mg/dl (7-17); Calcium 8.9 mg/dl (8.4-10.2); Carbon Dioxide 31 mmol/L (22-30); Chloride 102 mmol/L (98-107); Direct Bilirubin 0.4 mg/dl (0.0-0.4); Glucose 108 mg/dl (70-99); Potassium 3.3 mmol/L (3.5-5.1); Sodium 136 mmol/L (135-145); Total Protein 7.9 g/dl (6.3-8.2); eGFR > 60.00
[2024-01-05 15:14] LABS: Hepatitis A Antibody, Total Positive (Negative)
[2024-01-05 16:42] LABS: AFP Male/Tumor Marker 1.82 ng/ml
[2024-01-06 15:53] LABS: tTG IgG Antibody 9.4 EU/ml (0-19)
[2024-01-06 17:01] LABS: Alpha-1-Antitrypsin 241 mg/dL (90-200); Ceruloplasmin 28 mg/dL (16-45)
[2024-01-06 21:30] LABS: ANA, IgG Reflex to HEp-2 None Detected (None Detected)
[2024-01-07 01:08] LABS: IgA 1070 mg/dl (70-400)
[2024-01-07 01:50] LABS: F-Actin Antibody IgG 18 Units (0-19)
[2024-01-07 18:29] LABS: Endomysial IgA Antibody Titer <1:10 (<1:10)
== END ==
LOC: REG 10:09
PROVIDERS: ATTENDING PHYSICIAN Physician Assistant; FAMILY PHYSICIAN Family Medicine
DX: K74.60 Unspecified cirrhosis of liver (principal)
CPT/HCPCS: 36415; 80053; 82103; 82105; 82248; 82390; 82784; 83516; 85025; 85610; 85730; 86015; 86038; 86231; 86381; 86708

== ENCOUNTER → 2024-01-08 08:04 | Outpatient (REF) | payer OTHER, SELFPAY ==
[2024-01-08 08:17] VITALS: BP 109/78; BP_SYST 99
[2024-01-08 09:30] VITALS: BP 104/72
[2024-01-08 10:08] LABS: Body Fluid Mononuclear 95.3 %; Body Fluid Polymorphonuclear 4.7 %; Body Fluid WBC 377 /CUMM
[2024-01-08 10:10] LABS: Body Fluid Second Tech HB
== END ==
LOC: RADI 08:04
PROVIDERS: ATTENDING PHYSICIAN Physician Assistant; FAMILY PHYSICIAN Family Medicine
DX: R18.8 Other ascites (principal)
CPT/HCPCS: 49083; 87015; 87070; 87205; 89051

== ENCOUNTER → 2024-01-22 13:56 | Outpatient (REF) | payer OTHER, SELFPAY | LOC: PAVMRI 13:56 | PROVIDERS: ATTENDING PHYSICIAN Physician Assistant; FAMILY PHYSICIAN Family Medicine; REFERRING PHYSICIAN Internal Medicine Gastroenterology | DX: K74.60 Unspecified cirrhosis of liver (principal) | CPT/HCPCS: 74183 ==

== ENCOUNTER 2024-01-29 21:27 | Inpatient (IN) | payer OTHER, SELFPAY ==
[2024-01-29 14:16] VITALS: BP 127/68; BMI 16.6
[2024-01-29 16:17] VITALS: BMI 25.8
--- NOTE | 2024-01-29 16:28 | ED.GENMED ---
History of Present Illness
<Nika Cheema PA-C - Last Filed: 01/29/24 23:18>
General
Chief Complaint: Change Level of Consciousness
Source: patient
Exam Limitations: altered mental status
Time Seen by Provider: 01/29/24 15:42
Nursing documentation reviewed up to this point in time: agreed with
Travel History
Have you had any contact with someone who has COVID-19?: No
Do you have any symptoms of coronavirus? Fever > 100 degrees, chills, cough, shortness of breath, sore throat, loss of taste or smell, muscle aches, or headache?: No
History of Present Illness
History of Present Illness:
Patient is a 58-year-old female with history of cirrhosis, hepatitis C (treated), rheumatoid arthritis presenting to the emergency department via EMS for evaluation of altered mental status. Patient is alert, although appears somewhat confused and
unable to contribute fully to history. Patient reports some upper abdominal pain. Patient does deny any chest pain, shortness of breath, cough, headache, numbness/tingling. Patient denies drinking any alcohol. No known fever or chills.
Discussed with patient's daughter who states that her mom called her this morning asking her to come over and assist her in getting out of bed to get to the bathroom. When she arrived at her house she found her mom on the ground next to her bed.
They are unsure if there was any head strike or how long she has been on the ground. Patient's mom was complaining of pain in her low back consistent with her prior sciatica pain. Patient's daughter states that her mom seemed acutely confused.
EMS was called to assist in transportation to the emergency department.
Patient was admitted to the hospital in November of this year for abdominal ascites. Patient's daughter does state that she had a outpatient paracentesis performed a few weeks ago, as well.
Past History
<Nika Cheema PA-C - Last Filed: 01/29/24 23:18>
Past History
ED Past Medical History: GERD, Seizures (Is on Tegretol and states she hasn't had a seizure in over 20 years. ), Psychiatric (depression), Other (Arthritis/osteoarthritis), Other (Previous hepatitis C) and Other (History of chronic low back pain.
Has had pain injections and sees her doctor on a monthly basis for back pain 'stenosis.' She takes oxycodone and hydrocodone for pain.)
ED Past Surgical History: and Orthopedic
Social History
Tobacco: Smoker
Alcohol: Other (Drinks every weekend)
Drug: Former user and IVDA
Personal:
Living: with family
Employment: Employed
Phy Exam
<Nika Cheema PA-C - Last Filed: 01/29/24 23:18>
Physical Exam
Physical Exam:
General: In mild distress, somewhat drowsy, nontoxic appearing
Vitals: Tachycardic, otherwise vital signs stable, afebrile
HEENT: Atraumatic, normocephalic; pupils equal round and reactive to light bilaterally, protecting airway
Neck: appears supple, no meningeal signs
CV: Tachycardic, regular rhythm, no evidence of cyanosis
Resp: No evidence of respiratory distress, clear bilaterally
Abd: Soft, diffusely tender without rebound or guarding, moderately distended
Extremities: No deformities, no evidence of cyanosis or edema; DP pulses palpable and equal bilaterally
Neuro: alert and oriented x 3; speech scattered, somewhat drowsy, no focal motor deficits
Psych: Drowsy
Skin: Intact, no rashes
Course
<Nika Cheema PA-C - Last Filed: 01/29/24 23:18>
Orders/Labs/Results
Orders:
Orders
01/29/24 Dinner
NPO
Allow oral meds: Yes
Allow clear liquids: No
NPO with Ice Chips: No
01/29/24 16:13
Electrocardiogram (*1) Stat
Reason for Study: Other
Other Reason for Exam: overdose
EKG- Treatment ONCE
01/29/24 16:14
CT Head W/o Iv Contrast Urgent
Comment:
Reason For Exam: altered mental status
01/29/24 16:30
US Abdomen Complete/Upper Urgent
Comment:
Reason For Exam: upper abdominal pain, distention
01/29/24 16:45
Acetaminophen Urgent
Alcohol Urgent
Ammonia Urgent
Complete Blood Count/With Diff Urgent
Comprehensive Metabolic Panel Urgent
Direct Bilirubin Urgent
Lipase Urgent
Magnesium Urgent
Comment: ADD ON
Salicylate Urgent
Blood Culture Q30M
ANALI Source: Blood/Venous
Specimen Description:
01/29/24 16:46
Lactic Acid Q4H
Comment: CANCEL 2nd LACTIC ACID IF 1st LACTIC ACID IS LESS THAN 2
01/29/24 17:46
Add On- LAB Urgent
Tests Added?: magnesium
01/29/24 18:02
Fentanyl, Urine Urgent
Urinalysis Reflex To Culture Urgent
Date Specimen was Collected: 01/29/24
Time Specimen was Collected: 18:00
Comment: straight cath
Urine Drug Abuse Screen Urgent
Date Specimen was Collected: 01/29/24
Time Specimen was Collected: 18:00
Urine Microscopic Reflex Cult Urgent
01/29/24 18:12
Blood Culture Q30M
ANALI Source: Blood/Venous
Specimen Description:
01/29/24 18:53
0.9% Sodium Chloride 1000 ml [Nss] 1,000 ml IV BOLUS
01/29/24 19:28
Body Fluid Albumin Urgent
Fluid Source: Peritoneal (Ascites)
Body Fluid Amylase Urgent
Fluid Source: Peritoneal (Ascites)
Body Fluid Cell Count Urgent
What is the Body Fluid: ascites
Body Fluid Glucose Urgent
Fluid Source: Peritoneal (Ascites)
Body Fluid LDH Urgent
Fluid Source: Peritoneal (Ascites)
Body Fluid Protein Urgent
Fluid Source: Peritoneal (Ascites)
01/29/24 19:31
Fluid Culture with Gram Stain Urgent
ANALI Source: Peritoneal Fluid
Specimen Description:
01/29/24 19:56
Piperacillin/Tazo 3.375 Gram [Zosyn] 3.375 gram in 50 ml IV NOW
01/29/24 20:04
Magnesium Sulfate 1 grams 0.9% Sodium Chloride 100 ml [Nss] 100 ml IV NOW
01/29/24 21:01
Admit/Transfer Patient As Directed
Co-Sign Provider:
Level of Care: Inpatient admission
Assign to:: Medical/Surgical
Physician / Group: hardik bills
Diagnosis: abd pain w/cbd dilation /leukocytosis concern cholangitis
Reason for Hospitalization: abd pain w/cbd dilation /leukocytosis concern cholangitis
Expected length of stay greater than two midnights?: Yes
ELOS- Estimated Length of Stay in days: 4
I certify the patient meets the requirements for IP care: Yes
Code Status As Directed
Resuscitation Status: Full Code
01/29/24 21:08
Potassium Chloride [KCl] 40 meq PO NOW STA
01/29/24 21:29
Prothrombin Time Urgent
01/29/24 21:39
Lactic Acid Q4H
Comment: CANCEL 2nd LACTIC ACID IF 1st LACTIC ACID IS LESS THAN 2
01/29/24 22:34
Sertraline HCl [Zoloft] 200 mg PO HS
01/29/24 22:34
Activity As Directed
Activity Level: As Tolerated
Intake/ Output As Directed
Frequency: Per unit guidelines
Pneumatic Compression Sleeves As Directed
Type: Knee high
Vital Signs As Directed
Frequency: Per unit guidelines
Weight As Directed
Frequency: Daily
Ot Eval And Treat Routine
Pt Eval And Treat Routine
Activity Level: With Assistance
DX Deep Vein Thrombosis Video Routine
DX Deep Vein Thrombosis Video Routine
01/29/24 23:00
Quetiapine Fumarate [Seroquel] 200 mg PO HS
01/29/24 23:40
Oxycodone [Roxicodone] 30 mg PO QIDPRN PRN
01/29/24 23:45
Alprazolam [Xanax] 2 mg PO TIDPRN PRN
01/30/24 02:00
Piperacillin/Tazo 3.375 Gram [Zosyn] 3.375 gram in 50 ml IV Q6H
01/30/24 06:36
Complete Blood Count/With Diff IN AM
Comprehensive Metabolic Panel IN AM
01/30/24 08:00
Calcium Carbonate [Oscal Gustabo 500] 500 mg PO DAILY
Furosemide [Lasix] 20 mg PO DAILY
Hydroxychloroquine [Plaquenil] 200 mg PO BID
Pantoprazole [Protonix] 40 mg PO DAILY
Phenytoin [Dilantin] 100 mg PO BID
Pregabalin [Lyrica] 300 mg PO DAILY
01/30/24 18:00
Enoxaparin Sodium [Lovenox] 40 mg SC QPM
01/31/24 07:09
Complete Blood Count/With Diff IN AM
Comprehensive Metabolic Panel IN AM
02/01/24 05:36
Complete Blood Count/With Diff IN AM
Comprehensive Metabolic Panel IN AM
02/02/24 06:00
Complete Blood Count/With Diff IN AM
Comprehensive Metabolic Panel IN AM
Abnormal Lab Results
01/29/24 01/29/24 01/29/24
16:45 16:46 18:02
WBC 17.5 H 10^3/uL
(4.8-10.8)
RBC 3.22 L 10^6/uL
(4.20-5.40)
Hgb 10.0 L g/dL
(12.0-16.0)
Hct 29.3 L %
(37.0-47.0)
MCH 31.1 H pg
(27.0-31.0)
Plt Count 111 L 10^3/uL
(130-400)
Abs Immat Gran (auto) 0.3 H 10^3/uL
(0-0.05)
Absolute Neuts (auto) 14.8 H 10^3/uL
(1.4-6.5)
Absolute Lymphs (auto) 0.4 L 10^3/uL
(1.2-3.4)
Absolute Monos (auto) 1.9 H 10^3/uL
(0.1-0.6)
Immature Gran % 1.5 H %
(0-0.5)
Neutrophils % 84.9 H %
(42.2-75.2)
Lymphocytes % 2.2 L %
(20.5-51.1)
Monocytes % 11.0 H %
(1.7-9.3)
Sodium 134 L mmol/L
(135-145)
Potassium 3.4 L mmol/L
(3.5-5.1)
Glucose 134 H mg/dl
(70-99)
Lactic Acid 2.1 H mmol/L
(0.7-2.0)
Magnesium 1.4 L mg/dl
(1.6-2.3)
Total Bilirubin 1.4 H mg/dl
(0.2-1.3)
Direct Bilirubin 0.5 H mg/dl
(0.0-0.4)
AST 54 H U/L
(14-36)
Ammonia 46 H umol/L
(9-30)
Albumin 3.3 L g/dl
(3.5-5.0)
Urine Ketones Trace A
(Negative)
Urine Bilirubin 1+ A
(Negative)
Urine Urobilinogen 2+ A
(Neg - 1+)
Leukocyte Esterase Rfl Trace A
(Negative)
Urine Bacteria (Reflex) Few A
(Negative)
Salicylates < 1.0 L mg/dl
(2.0-20.0)
Urine Opiates Screen Positive H
(Negative)
Ur Oxycodone Screen Positive H
(Negative)
Acetaminophen < 10 L ug/ml
(10-30)
Ur Barbiturates Screen Positive H
(Negative)
Ur Tricyclics Screen Positive H
(Negative)
U Benzodiazepines Scrn Positive H
(Negative)
01/29/24 16:45
01/29/24 16:45
Vital Signs
Initial and Last Documented VS:
Initial Vital Signs
Temp Pulse Resp BP Pulse Ox
98.8 F 125 22 127/68 96
01/29/24 14:16 01/29/24 14:16 01/29/24 14:16 01/29/24 14:16 01/29/24 14:16
Last Documented Vital Signs
Temp Pulse Resp BP Pulse Ox
99.2 F 89 18 116/64 92
01/31/24 23:42 01/31/24 23:42 01/31/24 23:42 01/31/24 23:42 01/31/24 23:42
<Basim Sorenson MD - Last Filed: 02/01/24 08:10>
Orders/Labs/Results
Orders:
Orders
01/29/24 Dinner
NPO
Allow oral meds: Yes
Allow clear liquids: No
NPO with Ice Chips: No
01/29/24 16:13
Electrocardiogram (*1) Stat
Reason for Study: Other
Other Reason for Exam: overdose
EKG- Treatment ONCE
01/29/24 16:14
CT Head W/o Iv Contrast Urgent
Comment:
Reason For Exam: altered mental status
01/29/24 16:30
US Abdomen Complete/Upper Urgent
Comment:
Reason For Exam: upper abdominal pain, distention
01/29/24 16:45
Acetaminophen Urgent
Alcohol Urgent
Ammonia Urgent
Complete Blood Count/With Diff Urgent
Comprehensive Metabolic Panel Urgent
Direct Bilirubin Urgent
Lipase Urgent
Magnesium Urgent
Comment: ADD ON
Salicylate Urgent
Blood Culture Q30M
ANALI Source: Blood/Venous
Specimen Description:
01/29/24 16:46
Lactic Acid Q4H
Comment: CANCEL 2nd LACTIC ACID IF 1st LACTIC ACID IS LESS THAN 2
01/29/24 17:46
Add On- LAB Urgent
Tests Added?: magnesium
01/29/24 18:02
Fentanyl, Urine Urgent
Urinalysis Reflex To Culture Urgent
Date Specimen was Collected: 01/29/24
Time Specimen was Collected: 18:00
Comment: straight cath
Urine Drug Abuse Screen Urgent
Date Specimen was Collected: 01/29/24
Time Specimen was Collected: 18:00
Urine Microscopic Reflex Cult Urgent
01/29/24 18:12
Blood Culture Q30M
ANALI Source: Blood/Venous
Specimen Description:
01/29/24 18:53
0.9% Sodium Chloride 1000 ml [Nss] 1,000 ml IV BOLUS
01/29/24 19:28
Body Fluid Albumin Urgent
Fluid Source: Peritoneal (Ascites)
Body Fluid Amylase Urgent
Fluid Source: Peritoneal (Ascites)
Body Fluid Cell Count Urgent
What is the Body Fluid: ascites
Body Fluid Glucose Urgent
Fluid Source: Peritoneal (Ascites)
Body Fluid LDH Urgent
Fluid Source: Peritoneal (Ascites)
Body Fluid Protein Urgent
Fluid Source: Peritoneal (Ascites)
01/29/24 19:31
Fluid Culture with Gram Stain Urgent
ANALI Source: Peritoneal Fluid
Specimen Description:
01/29/24 19:56
Piperacillin/Tazo 3.375 Gram [Zosyn] 3.375 gram in 50 ml IV NOW
01/29/24 20:04
Magnesium Sulfate 1 grams 0.9% Sodium Chloride 100 ml [Nss] 100 ml IV NOW
01/29/24 21:01
Admit/Transfer Patient As Directed
Co-Sign Provider:
Level of Care: Inpatient admission
Assign to:: Medical/Surgical
Physician / Group: hardik bills
Diagnosis: abd pain w/cbd dilation /leukocytosis concern cholangitis
Reason for Hospitalization: abd pain w/cbd dilation /leukocytosis concern cholangitis
Expected length of stay greater than two midnights?: Yes
ELOS- Estimated Length of Stay in days: 4
I certify the patient meets the requirements for IP care: Yes
Code Status As Directed
Resuscitation Status: Full Code
01/29/24 21:08
Potassium Chloride [KCl] 40 meq PO NOW STA
01/29/24 21:29
Prothrombin Time Urgent
01/29/24 21:39
Lactic Acid Q4H
Comment: CANCEL 2nd LACTIC ACID IF 1st LACTIC ACID IS LESS THAN 2
01/29/24 22:34
Sertraline HCl [Zoloft] 200 mg PO HS
01/29/24 22:34
Activity As Directed
Activity Level: As Tolerated
Intake/ Output As Directed
Frequency: Per unit guidelines
Pneumatic Compression Sleeves As Directed
Type: Knee high
Vital Signs As Directed
Frequency: Per unit guidelines
Weight As Directed
Frequency: Daily
Ot Eval And Treat Routine
Pt Eval And Treat Routine
Activity Level: With Assistance
DX Deep Vein Thrombosis Video Routine
DX Deep Vein Thrombosis Video Routine
01/29/24 23:00
Quetiapine Fumarate [Seroquel] 200 mg PO HS
01/29/24 23:40
Oxycodone [Roxicodone] 30 mg PO QIDPRN PRN
01/29/24 23:45
Alprazolam [Xanax] 2 mg PO TIDPRN PRN
01/30/24 02:00
Piperacillin/Tazo 3.375 Gram [Zosyn] 3.375 gram in 50 ml IV Q6H
01/30/24 06:36
Complete Blood Count/With Diff IN AM
Comprehensive Metabolic Panel IN AM
01/30/24 08:00
Calcium Carbonate [Oscal Gustabo 500] 500 mg PO DAILY
Furosemide [Lasix] 20 mg PO DAILY
Hydroxychloroquine [Plaquenil] 200 mg PO BID
Pantoprazole [Protonix] 40 mg PO DAILY
Phenytoin [Dilantin] 100 mg PO BID
Pregabalin [Lyrica] 300 mg PO DAILY
01/30/24 18:00
Enoxaparin Sodium [Lovenox] 40 mg SC QPM
01/31/24 07:09
Complete Blood Count/With Diff IN AM
Comprehensive Metabolic Panel IN AM
02/01/24 05:36
Complete Blood Count/With Diff IN AM
Comprehensive Metabolic Panel IN AM
02/02/24 06:00
Complete Blood Count/With Diff IN AM
Comprehensive Metabolic Panel IN AM
Abnormal Lab Results
01/29/24 01/29/24 01/29/24
16:45 16:46 18:02
WBC 17.5 H 10^3/uL
(4.8-10.8)
RBC 3.22 L 10^6/uL
(4.20-5.40)
Hgb 10.0 L g/dL
(12.0-16.0)
Hct 29.3 L %
(37.0-47.0)
MCH 31.1 H pg
(27.0-31.0)
Plt Count 111 L 10^3/uL
(130-400)
Abs Immat Gran (auto) 0.3 H 10^3/uL
(0-0.05)
Absolute Neuts (auto) 14.8 H 10^3/uL
(1.4-6.5)
Absolute Lymphs (auto) 0.4 L 10^3/uL
(1.2-3.4)
Absolute Monos (auto) 1.9 H 10^3/uL
(0.1-0.6)
Immature Gran % 1.5 H %
(0-0.5)
Neutrophils % 84.9 H %
(42.2-75.2)
Lymphocytes % 2.2 L %
(20.5-51.1)
Monocytes % 11.0 H %
(1.7-9.3)
Sodium 134 L mmol/L
(135-145)
Potassium 3.4 L mmol/L
(3.5-5.1)
Glucose 134 H mg/dl
(70-99)
Lactic Acid 2.1 H mmol/L
(0.7-2.0)
Magnesium 1.4 L mg/dl
(1.6-2.3)
Total Bilirubin 1.4 H mg/dl
(0.2-1.3)
Direct Bilirubin 0.5 H mg/dl
(0.0-0.4)
AST 54 H U/L
(14-36)
Ammonia 46 H umol/L
(9-30)
Albumin 3.3 L g/dl
(3.5-5.0)
Urine Ketones Trace A
(Negative)
Urine Bilirubin 1+ A
(Negative)
Urine Urobilinogen 2+ A
(Neg - 1+)
Leukocyte Esterase Rfl Trace A
(Negative)
Urine Bacteria (Reflex) Few A
(Negative)
Salicylates < 1.0 L mg/dl
(2.0-20.0)
Urine Opiates Screen Positive H
(Negative)
Ur Oxycodone Screen Positive H
(Negative)
Acetaminophen < 10 L ug/ml
(10-30)
Ur Barbiturates Screen Positive H
(Negative)
Ur Tricyclics Screen Positive H
(Negative)
U Benzodiazepines Scrn Positive H
(Negative)
01/29/24 16:45
01/29/24 16:45
Vital Signs
Initial and Last Documented VS:
Initial Vital Signs
Temp Pulse Resp BP Pulse Ox
98.8 F 125 22 127/68 96
01/29/24 14:16 01/29/24 14:16 01/29/24 14:16 01/29/24 14:16 01/29/24 14:16
Last Documented Vital Signs
Temp Pulse Resp BP Pulse Ox
99.2 F 89 18 116/64 92
01/31/24 23:42 01/31/24 23:42 01/31/24 23:42 01/31/24 23:42 01/31/24 23:42
<Nika Cheema PA-C - Last Filed: 01/29/24 23:18>
MDM/Problems Addressed
Differential Diagnosis Includes:
alcohol withdrawal, drug intoxication, polypharmacy, alcohol intoxication, hepatic encephalopathy, SBP, CVA, UTI, pneumonia, sepsis
MDM/Problems Addressed:
Patient is a 58-year-old female with history as documented presenting from EMS for evaluation due to acute change in mental status. Does have a history of cirrhosis, abdominal ascites. Patient seems acutely confused and unable to contribute much
to history, although she does endorse upper abdominal discomfort. She is tachycardic, otherwise vital signs stable. Physical exam as Above. Will check basic labs urinalysis, ammonia level, liver function, urine drug screen, alcohol level. Given
acute change in mental status will check CT of head. Will check abdominal ultrasound to evaluate ascites. Will send blood cultures.
Labs significant for a leukocytosis of 17.5. Mild anemia with hgb of 10- appears around patients baseline. Mild thrombocytopenia which appears baseline. Chemistry significant for mild hypomagnesemia of 1.4- will replete with 1gm IV mag. LFTs very
minimally elevated. Ammonia level elevated to 46- do not suspect hepatic encephalopathy. Lipase normal. UA shows no signs of infection. EKG shows normal sinus rhythm. Alcohol level is undetectable.
Head CT shows no acute abnormalities. Ultrasound of abdomen shows mild abdominal ascites otherwise relatively unchanged from and November.
Given leukocytosis with unclear etiology�concern for possible SBP. Will perform bedside ultrasound and attempt paracentesis.
Very little fluid seen on ultrasound. Unable to perform paracentesis. Will admit to hospitalist for acute mental status change with associated leukocytosis and concern for possible SBP. Will start Zosyn empirically. To consider paracentesis with
interventional radiology. Discussed with hospitalist
Chronic conditions affecting care:
Cirrhosis
Acute Exacerbation and/or Progression of Chronic Illness:
Abdominal ascites
<Nika Cheema PA-C - Last Filed: 01/29/24 23:18>
*Radiology
Radiology exam reviewed: preliminary read by ED provider and radiology read reviewed
*Pulse Oximetry
Patient hypoxic: no
*EKG
Interpreted by ED Provider?: Yes
EKG Intrepretation Date: 01/29/24
Interpretation: normal
Comparison EKG: changes noted
Heart Rate: 95
Rate: normal
Rhythm: sinus
Interval: long QT
Ischemia: no ischemia
*Event Designer Interpretation
Rate: normal
Interpretation: normal
Heart Rate: 98
Rhythm: sinus
*Critical Care Note
Total Time (30-74mins, 75-104mins- exclusive of procedures): Not Applicable
Data Reviewed
Review of Other/Old Records Reveals: Labs, Records, Radiology Studies and Progress Notes
Source: patient, family, previous radiology exam and previous hospital records
<Nika Cheema PA-C - Last Filed: 01/29/24 23:18>
Patient Management
Discussion with other providers: Hospitalist
ED Attending Note
<Nika Cheema PA-C - Last Filed: 01/29/24 23:18>
-
Portions of this chart may have been created with voice recognition software.� Occasional wrong word or��sound alike� substitutions may have occurred due to the inherent limitations of voice recognition software.
<Basim Sorenson MD - Last Filed: 02/01/24 08:10>
ED Attending Note
Patient seen and examined by attending physician: Yes
ED Attending Note:
Patient with history of liver cirrhosis and chronic back pain secondary to sciatica, presents to ED secondary to worsening generalized weakness along with confusion noted by family member this morning. Patient upon arrival is found to be
tachycardic and confused, and complaining of abdominal pain. Denies coughing. Denies vomiting. Denies diarrhea. Denies trauma. Denies fever. Denies headache. Denies recent change in medications or diet. Denies drinking alcohol.
Physical Exam
General: mild distress, not acutely ill. afebrile
Head: nc/at. eomi
Neck: supple. no meningeal signs.
Heart: tachycardic, no murmur. equal radial pulses.
Lungs: no acute respiratory distress. clear bilaterally
Abdomen: normal bowel sounds. mild epigastric tenderness to palpation.
Neuro: alert and oriented. no focal neurological deficits
Skin: no rash
Psychiatric: well kept. interactive and cooperative
Extremities: no edema. no calf tenderness.
Patient's presenting symptoms concerning for hepatic encephalopathy versus dehydration versus medication effect versus infectious etiology, especially in light of leukocytosis.
Ultrasound abdomen report reviewed. Unable to obtain any body fluid for analysis, due to lack of peritoneal fluid noted. As such, patient will be given empiric dose of Zosyn tonight for coverage, along with consideration for potential paracentesis
and fluid analysis by interventional radiology.
Discharge Plan
Departure
Patient Disposition: Admit
Date of Disposition: 01/29/24
Time of Disposition: 19:57
Presentation/result/management discussed w/ accepting MD/DO: Hospitalist
Discharge Problem:
Altered mental status, Abdominal ascites, Leukocytosis
Interventions
Interventions:
*Risk Screen - Suicide Last Done: 01/29/24 14:16
*General Assessment Last Done: 01/29/24 22:22
*Neglect/Abuse Screening Last Done: 01/29/24 14:16
ED- Fall Risk Assessment Last Done: 01/29/24 16:18
*ED COVID-19 Vaccine History Last Done: 01/29/24 14:16
*Nursing Disposition Last Done: 01/29/24 22:22
ED- Cardiac Assessment Last Done: 01/29/24 16:18
ED- Neurological Assessment Last Done: 01/29/24 16:18
ED-Psychological Assessment Last Done: 01/29/24 16:18
ED- Pulmonary Assessment Last Done: 01/29/24 16:18
Discharge Date and Time
Discharge Date/Time: 01/29/24 22:23
[2024-01-29 16:55] LABS: % Basophils 0.4 % (0-2); % Immature Granulocytes 1.5 % (0-0.5); % Lymphocytes 2.2 % (20.5-51.1); % Neutrophils 84.9 % (42.2-75.2); Absolute Basophils 0.1 10^3/uL (0-0.2); Absolute Immature Granulocytes 0.3 10^3/uL (0-0.05); Absolute Lymphocytes 0.4 10^3/uL (1.2-3.4); Absolute Monocytes 1.9 10^3/uL (0.1-0.6); Absolute Neutrophils 14.8 10^3/uL (1.4-6.5); Hematocrit 29.3 % (37.0-47.0); Mean Corp Hgb Conc. 34.1 g/dL (33.0-37.0); Mean Corpuscular Hgb 31.1 pg (27.0-31.0); Mean Platelet Volume 10.1 fL (7.4-10.4); Nucleated Red Blood Cells % 0 %; Platelet Count 111 10^3/uL (130-400); Red Blood Cell Count 3.22 10^6/uL (4.20-5.40); Red Cell Dist. Width 14.1 % (11.5-14.5); White Blood Cell Count 17.5 10^3/uL (4.8-10.8)
[2024-01-29 17:05] LABS: Lactic Acid 2.1 mmol/L (0.7-2.0)
[2024-01-29 17:05] LABS: Ammonia 46 umol/L (9-30)
[2024-01-29 17:11] LABS: ALT (SGPT) 17 U/L (0-35); AST (SGOT) 54 U/L (14-36); Acetaminophen < 10 ug/ml (10-30); Albumin 3.3 g/dl (3.5-5.0); Alkaline Phosphatase 100 U/L (38-126); Blood Urea Nitrogen 15 mg/dl (7-17); Calcium 8.6 mg/dl (8.4-10.2); Carbon Dioxide 27 mmol/L (22-30); Chloride 103 mmol/L (98-107); Direct Bilirubin 0.5 mg/dl (0.0-0.4); Estimated Creatinine Clearance 97 ml/min; Glucose 134 mg/dl (70-99); Lipase 31 U/L (23-300); Potassium 3.4 mmol/L (3.5-5.1); Salicylate < 1.0 mg/dl (2.0-20.0); Sodium 134 mmol/L (135-145); Total Bilirubin 1.4 mg/dl (0.2-1.3); Total Protein 8.1 g/dl (6.3-8.2); eGFR > 60.00
[2024-01-29 17:15] LABS: Alcohol None Detected
[2024-01-29 18:03] LABS: Magnesium 1.4 mg/dl (1.6-2.3)
[2024-01-29 18:32] LABS: Urine Albumin Trace (Neg - Trace); Urine Bilirubin 1+ (Negative); Urine Character Clear (Clear); Urine Color Yellow; Urine Glucose Negative (Negative); Urine Ketone Trace (Negative); Urine Leukocyte Trace (Negative); Urine Nitrite Negative (Negative); Urine Occult Blood Negative (Negative); Urine Urobilinogen 2+ (Neg - 1+)
[2024-01-29 18:35] LABS: Amphetamines Negative (Negative); Barbiturates Positive (Negative); Benzodiazepines Positive (Negative); Buprenorphine Negative (Negative); Cocaine Negative (Negative); Marijuana Negative (Negative); Methadone Negative (Negative); Methamphetamines Negative (Negative); Opiates Positive (Negative); Phencyclidine Negative (Negative); Tricyclic Antidepressants Positive (Negative)
[2024-01-29] MEDS: NSS 1000 IV (18:56)
[2024-01-29 18:57] LABS: Urine White Cell 0-2 /HPF (0-5)
[2024-01-29 18:58] LABS: Urine Bacteria Few (Negative)
[2024-01-29 19:02] LABS: Fentanyl, Urine Negative (Negative)
[2024-01-29 19:12] VITALS: BP 107/64
[2024-01-29] MEDS: ZOSYN 50 IV (20:03)
--- NOTE | 2024-01-29 20:18 | HPS.HSE ---
Family Physician
-
Family Physician: INTERVIEWE UNKNOWN - PT NOT
Chief Complaint
-
Midepigastric pain to right upper quadrant
History of Present Illness
58-year-old female complaining of mid epigastric pain to right upper quadrant. The patient is unsure whether she has had the pain 3 days or a week. She denies nausea, vomiting, fever, chills, diarrhea, chest pain, palpitations, shortness breath,
cough, urinary symptoms. According to her daughter at bedside she has had some memory impairment on and off since end november after stopping alcohol use. She called her today
to ask her to come over and assist her getting out of bed to the bathroom when she arrived she found her mom on the ground next to her bed complaining of low back pain and sciatica but she appeared more confused. Her daughter reports that she has
history of cirrhosis with abdominal ascites did have outpatient paracentesis end of November and mid December 2.5 L. She is past medical history of hep C, cirrhosis, seizures, GERD, chronic low back pain, spinal stenosis on chronic opiates,
depression/anxiety, RA, OA, nicotine abuse, former alcohol abuse stopped end November 2023, former IVDA
Medical History
Past Medical History
Past Medical History: Reports Other
Additional Past Medical History:
hep C-treated in past
alcohol abuse drinks every weekend
cirrhosis
seizures
GERD
chronic low back pain/spinal stenosis on chronic opiates
depression/anxiety
OA
nicotine abuse
former IVDA
Past Surgical History: Reports Other
Additional Past Surgical History:
section
Multiple bilateral wrist surgeries for fractures
Bilateral feet fractures possible plates placed
Social History
Tobacco: Smoker (1/2 pack a day)
Alcohol: Former (Drink daily vodka stopped end november)
Drug: None
Personal: Single
Living: Alone
Employment: Disabled
Family History
Family History: Other (Mother alcohol abuse living, father unclear was on hospice)
Allergies / Home Medications
Allergies reflects when Allergies were last updated in [facility].
Home Medications with original date entered in [facility]
Allergy/Medication List:
Allergies
Allergy/AdvReac Type Severity Reaction Status Date / Time
carisoprodol [From Soma] Allergy Unknown Verified 01/29/24 14:15
duloxetine [From Cymbalta] Allergy patient no Verified 01/29/24 14:15
aware of
an allergy
to this
medication
mold Allergy sneezing, Verified 01/29/24 14:15
coughing,
headaches
pollen extracts Allergy sneezing,he Verified 01/29/24 14:15
adaches
pseudoephedrine HCl Allergy heart Verified 01/29/24 14:15
[From Sudafed] races,
tingling
DUST Allergy sneezing, Uncoded 01/29/24 14:15
headaches
Home Medications
quetiapine 200 mg tablet (Seroquel) 200 mg PO HS depression 12/13/16
cholecalciferol (vitamin D3) 25 mcg (1,000 unit) tablet (Vitamin D3) 25 mcg PO DAILY supplement ##0 12/10/20
folic acid 1 mg tablet 1 mg PO DAILY supplement ##0 12/10/20
hydroxychloroquine 200 mg tablet 200 mg PO BID rheumatoid arthritis 12/10/20
omeprazole 40 mg capsule,delayed release 40 mg PO DAILY Gastrointestinal Issue 12/10/20
pregabalin 300 mg capsule 300 mg PO DAILY seizures/pain 12/10/20
sertraline 100 mg tablet 200 mg PO HS depression 12/10/20
alendronate 70 mg tablet (Fosamax) 70 mg PO MO osteoporosis 12/14/23
alprazolam 2 mg tablet 2 mg PO TID anxiety 12/14/23
biotin 5 mg tablet 5 mg PO DAILY supplement 12/14/23
calcium carbonate 500 mg PO DAILY supplement 12/14/23
cyanocobalamin (vitamin B-12) 1,000 mcg tablet 1,000 mcg PO DAILY supplement 12/14/23
doxycycline hyclate 100 mg tablet 100 mg PO Q48H acne 12/14/23
milk thistle 150 mg capsule 150 mg PO DAILY Supplement 12/14/23
phenytoin sodium extended 100 mg capsule 100 mg PO BID seizures 12/14/23
therapeutic multivitamin 1 tab PO DAILY supplement 12/14/23
furosemide 20 mg tablet 20 mg PO DAILY #30 tabs 12/16/23
oxycodone 30 mg tablet 30 mg PO QID 01/29/24
potassium 99 mg tablet 99 mg PO DAILY 01/29/24
spironolactone 100 mg tablet 100 mg PO DAILY 01/29/24
Review of Systems
-
History Source: Patient and Family (Daughter at bedside)
A 12 point ROS was completed and negative except as noted: Yes
Constitutional: Denies Fever or Chills
EENT: Denies Sore Throat or Runny Nose
Respiratory: Denies Cough or Trouble Breathing
Cardiac: Denies Chest Pain, Diaphoresis, Palpitations or Syncope
Abdomen/GI: Reports Abdominal Pain (Mid epigastric to right upper quadrant); Denies Nausea, Vomiting, Diarrhea, Constipated, Bloody Stools or Black Stools
: Denies Dysuria, Frequency, Flank Pain, Incontinence, Difficulty Voiding or Urgency
Musculoskeletal: Reports Other (Chronic back pain); Denies Joint Pain or Edema
Skin: Denies Itching or Rash
Neurological: Denies Dizzy, Headache or Weakness
Endocrine: Reports No Symptoms
Hematologic/Lymphatic: Reports No Symptoms
Psych: Reports Calm
Physical Exam
Vital Signs
Vital Signs
Temp Pulse Resp BP Pulse Ox
98.8 F 89 19 107/64 95
01/29/24 14:16 01/29/24 19:12 01/29/24 19:12 01/29/24 19:12 01/29/24 19:12
Physical Exam
General: Pain; No Fever or Chills
HEENT: NormoCephalic, Anicteric, Moist mucous membranes, PERRLA, [place] Conjunctivae and No Ptosis
Respiratory: Clear; No Wheezes, Rales or Rhonchi
Cardiac: S1/S2 and Regular Rhythm; No Murmur, Rub, Gallop or Peripheral Edema
GI: Normal Bowel Sounds, Tender (Mid epigastric to right upper quadrant), Distended (But somewhat soft) and Organomegaly (Liver and spleen)
Rectal: Deferred by Provider
Genito-urinary: Deferred by me
Musculoskeletal: No Clubbing, No Cyanosis and No Edema
Skin: Warm, Dry and Rash
Neuro: AO x 3 (With intermittent confusion regarding dates and some of history), No Motor Deficits, Nonfocal/grossly intact, Cranial Nerves Intact and No Sensory Deficits; No Slurred Speech, Facial Droop or Tremors
Psych: Calm
Laboratory Results
-
01/29/24 16:45
01/29/24 16:45
Laboratory Results
Lactic Acid 2.1 mmol/L (0.7-2.0) H 01/29/24 16:46
Total Bilirubin 1.4 mg/dl (0.2-1.3) H 01/29/24 16:45
AST 54 U/L (14-36) H 01/29/24 16:45
ALT 17 U/L (0-35) 01/29/24 16:45
Alkaline Phosphatase 100 U/L (38-126) 01/29/24 16:45
Lipase 31 U/L (23-300) 01/29/24 16:45
Impression/Plan
-
Impression/plan:
Admit to MedSurg
#Abdominal pain with CBD dilatation/leukocytosis concern for cholangitis
WBC 17.5, 107/64, 98.8
T. bili 1.4, direct bili 0.5
Urine drug screen positive opiates, oxycodone, benzos, barbiturates, tricyclic's
-Lactic acid 2.1
-Blood cultures x 2
-IV Zosyn
-Check HIDA scan
-Consult GI
Abdominal ultrasound:
1. Moderate hepatic cirrhosis
2. Small volume upper abdominal ascites
3. Moderate splenomegaly secondary to portal hypertension
4. Distended gallbladder and CBD duct 1.0 cm(10mm)
#Chronic mild memory impairment-Per daughter ongoing since November 2023
[address] head: No evidence of acute intracranial hemorrhage or transcortical infarct. Mild diffuse cerebral and cerebellar volume loss
#Hypokalemia
K3.4
- give 40 mEq KCl, follow bmp
#History of cirrhosis
#Hep C-treated
-Paracentesis x 2 November and mid December 2023
-Check INR
--Hold spironolactone 100 mg daily
- continue Lasix 20 mg daily
#Chronic thrombocytopenia 2/2 cirrhosis
PLT 111 improved from prior baseline 80s
#Chronic anemia
Hgb 10
#Portal HTN
#GERD
-Continue Prilosec, calcium carbonate
#Former alcohol abuse-stopped end of November 2023
#Drinks on weekends according to daughter
-Alcohol level negative Tylenol salicylate negative
#Rheumatoid arthritis/OA with chronic wrist deformities
#Chronic pain on chronic oral opiates
-Oxycodone 30 mg 4 times daily, hydroxychloroquine 200 mg twice daily will switch to prn
-Patient on Fosamax monthly
#Seizure disorder
No seizure over 20 years
-Continue phenytoin 100 mg twice daily, Lyrica 300 mg daily
#Anxiety
-Patient on Xanax 2 mg 3 times daily will switch to prn
#Depression
-Continue Zoloft 100 mg at bedtime, Seroquel 200 mg at bedtime
#Acne
-Would recommend stopping doxycycline 100 mg every 48 H
DVT prophylaxis
Subcu Lovenox
Full code
--- NOTE | 2024-01-29 20:18 | PHANOTE ---
med rec note- patient answered some question but not, some answer from patient did not make sense, patient daughter in room but had an old list from 07/14/2023, dose and directions were missing for some on the medications. ecw has no dosing of
directions for patient either. ECW also showes patient on methotrexate and Effexor on 12/30/2023 but no pharmacy fills
[2024-01-29] MEDS: MAGNESIUM SULFATE 102 GRAMS IV (20:56)
[2024-01-29 21:07] VITALS: BP 103/60
[2024-01-29] MEDS: KCL 40 MEQ PO (21:44)
[2024-01-29 21:50] LABS: INR 1.87; PT 21.3 Sec (11.4-14.6)
[2024-01-29 22:00] VITALS: BP 102/69
[2024-01-29 22:07] LABS: Lactic Acid 1.4 mmol/L (0.7-2.0)
--- NOTE | 2024-01-29 22:30 | W.PN.UPDATE ---
Update Note
Progress Note Update
Patient seen and examined independently. Agree with findings and plan as set forth in today's H&P by SILVIA Kelly.
Patient is a 58y F with PMH significant for Hep C s/p treatment, alcohol abuse and cirrhosis who presents to ED complaining of abdominal pain. Pain is located in the epigastric and RUQ areas. Patient denies any associated N/V/D, etc. Patient
states that she has had these symptoms for about one week. Only new medications are her diuretics which were added at the time of her last admission.
Family felt that patient appeared more confused today, but note that she has had intermittent / worsening confusion since November.
Patient is on standing medications for chronic pain and anxiety.
No alcohol use since November 2023. Remote history of IVDA.
Ass:
Abdominal Pain
Possible Cholangitis / Cholecystitis
Cirrhosis with Mild Ascites, Portal Hypertension and Thrombocytopenia
History of Hep C s/p Treatment
History of Alcohol Use Disorder
Anemia of Chronic Disease
Rheumatoid Arthritis
Chronic Pain Syndrome
Chronic Opioid Dependence
Seizure Disorder - Remote
Anxiety / Depression
Plan:
Admit for further evaluation and treatment.
Will continue IV abx with suspicion for cholecystitis / cholangitis.
GI evaluation.
Supportive care.
Continue chronic medications.
Change opioids, BZDs to PRN and would attempt to decrease dosing.
Follow for any new / worsening symptoms.
[2024-01-29 22:35] VITALS: BP 103/67; BMI 26.1
[2024-01-29] MEDS: ZOLOFT 200 MG PO (23:39)
[2024-01-30] MEDS: SEROQUEL 200 MG PO ×2 (00:07→21:35)
[2024-01-30] MEDS: PROTONIX 40 MG PO ×2 (00:22→09:08)
[2024-01-30] MEDS: ZOSYN 50 IV ×4 (02:02→19:43)
[2024-01-30] MEDS: ROXICODONE 30 MG PO ×3 (02:18→23:46)
--- NOTE | 2024-01-30 06:25 | PTCARENOTE ---
Received patient from ER, AAOx4. Patient transferred from stretcher to bed with assist of 4. C/o pain to right lower back and right leg, oxycodone at 0218. Patient also c/o RUQ pain. Patient without urine output, bladder scanned for >796,
straight cath'd for 780 of clear fili urine. Call bryant in reach, plan of care continues
[2024-01-30 06:54] LABS: % Basophils 0.2 % (0-2); % Immature Granulocytes 0.5 % (0-0.5); % Monocytes 10.9 % (1.7-9.3); % Neutrophils 80.4 % (42.2-75.2); Absolute Immature Granulocytes 0.1 10^3/uL (0-0.05); Absolute Monocytes 1.3 10^3/uL (0.1-0.6); Absolute Neutrophils 9.6 10^3/uL (1.4-6.5); Hematocrit 26.3 % (37.0-47.0); Hemoglobin 8.9 g/dL (12.0-16.0); Mean Corp Hgb Conc. 33.8 g/dL (33.0-37.0); Mean Corpuscular Hgb 31.1 pg (27.0-31.0); Mean Platelet Volume 10.7 fL (7.4-10.4); Nucleated Red Blood Cells % 0 %; Platelet Count 95 10^3/uL (130-400); Red Blood Cell Count 2.86 10^6/uL (4.20-5.40); Red Cell Dist. Width 14.1 % (11.5-14.5); White Blood Cell Count 11.9 10^3/uL (4.8-10.8)
--- NOTE | 2024-01-30 07:18 | W.PN.HOSP.TC ---
Today's Communication/Plan
-
MRI/MRCP
clear liquid diet
repeat blood cultures
cont empiric Zosyn, empiric vancomycin added
Assessment / Plan
Assessment / Plan
Physical Exam
General: No pallor, cyanosis, or jaundice.
HEENT: Throat clear. PERRLA Normocephalic atraumatic
NECK: Supple. No JVD Carotid Bruits
RESPIRATORY: Lungs clear to auscultation. No crackles wheezes stridor
CVS: S1, S2 normal. RRR. No murmur, rub or gallop.
ABDOMEN: Soft, distended tender. decreased bowel sounds
EXTREMITIES: No peripheral cyanosis or edema.
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
58y F with PMH significant for Hep C s/p treatment, alcohol abuse and cirrhosis who presents to ED complaining of abdominal pain epigastric and RUQ areas
#Abdominal pain with CBD dilatation/leukocytosis concern for cholangitis
#Bacteremia
Abd US notes moderate hepatic cirrhosis, small volume ascities, moderate splenomegaly 2/2 portal hyn, distended gallbladder and CBD duct
Urine drug screen positive opiates, oxycodone, benzos, barbiturates, tricyclic's
Lactic acid 2.1 resolved
Blood cultures positive for strep species, empiric vancomycin started, blood cultures repeated
cont empiric IV Zosyn
GI eval appreciated checking MRI/MRCP
surgery eval appreciated no indication for urgent cholecystectomy at this time, clear liquid diet pending further workup
#Chronic mild memory impairment-Per daughter ongoing since November [address] head: No evidence of acute intracranial hemorrhage or transcortical infarct. Mild diffuse cerebral and cerebellar volume loss
#Hypokalemia
monitor and replete as necessary
#History of cirrhosis
#Hep C-treated
-Paracentesis x 2 November and mid December 2023
-Hold spironolactone 100 mg daily soft pressures
- continue Lasix 20 mg daily
#Chronic thrombocytopenia 2/2 cirrhosis
platelets stable
#Chronic anemia
Hgb 10
#Portal HTN
#GERD
-Continue Prilosec, calcium carbonate
#Former alcohol abuse-stopped end of November 2023
#Drinks on weekends according to daughter
-Alcohol level negative Tylenol salicylate negative
#Rheumatoid arthritis/OA with chronic wrist deformities
#Chronic pain on chronic oral opiates
-Oxycodone 30 mg 4 times daily, hydroxychloroquine 200 mg twice daily will switch to prn
-Patient on Fosamax monthly
#Seizure disorder
No seizure over 20 years
-Continue phenytoin 100 mg twice daily, Lyrica 300 mg daily
#Anxiety
-Patient on Xanax 2 mg 3 times daily will switch to prn
#Depression
-Continue Zoloft 100 mg at bedtime, Seroquel 200 mg at bedtime
DVT prophylaxis
Subcu Lovenox
Full code
I spent a total of 60 minutes with the patient or on the floor. More than 50% of this time involved counseling and coordination of care.
Anticipated Discharge: Today
Subjective/Interval History
-
Date of Service: January 30, 2024
Patient reports improvement in symptoms. eager to eat. Abdomen remains distended tender.
Objective Data
-
Labs:
Laboratory Results
01/29/24 01/30/24
21:29 06:36
WBC 11.9 H
Hgb 8.9 L
Hct 26.3 L
Plt Count 95 L
PT 21.3 H
INR 1.87
Sodium Pending
Potassium Pending
Chloride Pending
Carbon Dioxide Pending
BUN Pending
Creatinine Pending
Glucose Pending
Calcium Pending
Total Bilirubin Pending
AST Pending
ALT Pending
Alkaline Phosphatase Pending
Vital Signs:
Vital Signs
Temp Pulse Resp BP Pulse Ox
98.0 F 90 18 103/67 98
01/29/24 22:35 01/29/24 22:35 01/29/24 22:35 01/29/24 22:35 01/29/24 22:35
I&O
01/29/24 01/30/24 01/31/24
06:59 06:59 06:59
Output Total 780 / 780
Balance -780 / -780
[2024-01-30 07:55] VITALS: BP 113/60
[2024-01-30 07:59] LABS: ALT (SGPT) 20 U/L (0-35); AST (SGOT) 93 U/L (14-36); Albumin 2.9 g/dl (3.5-5.0); Alkaline Phosphatase 81 U/L (38-126); Blood Urea Nitrogen 19 mg/dl (7-17); Calcium 8.1 mg/dl (8.4-10.2); Carbon Dioxide 24 mmol/L (22-30); Chloride 107 mmol/L (98-107); Estimated Creatinine Clearance 93 ml/min; Glucose 108 mg/dl (70-99); Potassium 3.8 mmol/L (3.5-5.1); Sodium 135 mmol/L (135-145); Total Bilirubin 1.2 mg/dl (0.2-1.3); Total Protein 7.3 g/dl (6.3-8.2); eGFR > 60.00
--- NOTE | 2024-01-30 09:01 | CON.GI ---
Addendum entered and electronically signed by Forest Hercules MD 01/30/24 10:25:
Patient seen and examined, agree with nurse practitioner. Patient with history of cirrhosis secondary to alcohol primarily, with previous hepatitis C status posttreatment in the , decompensated with ascites and edema. She now presents with
increasing severe right upper quadrant pain. She describes pain that can be severe at times, sometimes rating to her back. She has had evaluation recently including MRI about a week ago that was normal and ultrasounds in the past that have not
shown any gallstones, though ultrasound now shows dilated CBD to a centimeter as well as distended gallbladder with some Rashad cholecystic inflammatory changes. She has had paracentesis including within the last month that were negative for SBP.
She had been on diuretics given edema and ascites that were decreased after lightheadedness. She is on chronic narcotics for spinal stenosis. On exam now she has significant tenderness with some guarding in the right upper quadrant. Ultrasound
again shows small amount of ascites and on exam does not seem to be significant ascites. Blood cultures are positive for gram-positive cocci in pairs and short chains SBP seems unlikely given this. Her LFTs are only very minimally elevated, making
cholangitis less likely though given her new CBD dilation this is still of a concern, as well as cholecystitis. At this point we will repeat MRI duct bacteremia, continue broad-spectrum antibiotics and supportive care. Would consult surgery, and I
did discuss with them already. Further recommendations pending repeat MRI which will be expedited, I discussed with radiology.
Original Note:
Consultation
-
Date/Time Consultation Requested: 01/29/24 @ 22:53
Date/Time Consultation Performed: 01/30/24 @ 09:00
Requesting Provider: SILVIA Kelly
Performing Provider: SILVIA Cassidy; Dr. Hercules
Reason for Consultation: cirrhosis, concern for cholecystitis, CBD dilation
Medical History
Chief Complaint / HPI
Chief Complaint: midepigastric pain, RUQ pain
History of Present Illness:
The patient is a 58-year-old female with a past medical history significant for decompensated alcoholic liver cirrhosis, history of hep C with treatment with interferon in ribavirin in 1998, GERD, seizure disorder on Dilantin, chronic doxycycline
for acne, history of IV drug abuse, depression, anxiety, chronic opiates secondary to spinal stenosis, who presented to the emergency room with complaints of mid epigastric pain and right upper quadrant pain. We are being asked to evaluate for her
presenting symptoms with abnormal ultrasound concerning for cholecystitis with gallbladder distention and CBD dilation and known history of decompensated liver cirrhosis. Upon review of records, the patient is well-known to us, following with "[facility]"Kirk Garrison on outpatient basis for her alcoholic liver cirrhosis. She was last seen in the office on December 29 with our nurse practitioner Bianka and Dr. Watkins. At that time she had been placed on spironolactone 100 mg and furosemide 40 mg daily.
She was referred to hepatology as she has been able to stop drinking, and was set up for an endoscopy which is pending at the end of this month. Her MELD sodium score at that time was 16. Upon review of outpatient records, she was experiencing
dizziness with higher dose diuretics and they were subsequently lowered to 20 mg of Lasix and 50 mg of spironolactone. She was previously seen in the hospital in November with increased abdominal swelling and lower extremity edema found to have
time. She did undergo paracentesis on 12/15 with removal of 3000 cc of clear yellow ascitic fluid. Fluid cell counts were negative for SBP. She had subsequent paracentesis on 01/07 with 1600 cc of clear yellow ascitic fluid removed again negative
for SBP. She had an MRI of the abdomen with and without contrast on 01/21 for HCC screening which was negative for hepatic mass or lesion and again confirmed hepatic cirrhosis with moderate ascites. There was no evidence of biliary ductal dilation
at that time. Today she reports that she had a fall out of bed yesterday. She does not recall how or why she fell but she was unable to get up off the floor. She was assisted by her family members and brought to the emergency room for further
evaluation. She does note she has had some increased confusion and lethargy at home as well. She has been taking her diuretics as prescribed, but has noticed her swelling has been somewhat more distended although not significantly more than her
baseline. She denies any lower extremity edema. She reports acute onset of pain in her mid epigastric area which has since improved although continues to have right-sided discomfort in her back and some tenderness in the right upper quadrant on
exam. She denies any fevers or chills. She does admit to nausea with vomiting x 1 episode this morning. She denies hematemesis. She otherwise denies any yellowing of the skin or eyes, loss of appetite, dysphagia, odynophagia, melena, or
hematochezia. She denies further alcohol use since prior to her admission in November. She was unable to get an appointment with Dr. Lafleur for hepatology evaluation. She is pending an EGD with Dr. Watkins at the end of this month. She is on
chronic narcotics secondary to spinal stenosis. Routine labs admission showed a WBC 17.5, hemoglobin 10.0, platelets 111,000, INR 1.87, sodium 134, potassium 3.4, BUN 15, creatinine 0.6, total bilirubin 1.4, direct bilirubin 0.5, AST 54, ALT 17,
ammonia 46, alk phos 100, lipase 31. Abdominal ultrasound was done showing a small volume of upper abdominal ascites, with known findings of hepatic cirrhosis with moderate splenomegaly secondary to portal hypertension, and a distended gallbladder
and CBD dilation of [address] of the head showed no acute intracranial hemorrhage or infarct. Noted with positive blood cultures with gram-positive cocci in pairs and chains. She was placed on vancomycin this morning per hospitalist and was placed
on Zosyn on admission.
Past Medical History
Past Medical History: GERD, Seizures, Psychiatric (Anxiety) and Other (Decompensated liver cirrhosis secondary to alcohol with ascites, history of hepatitis C with treatment, spinal stenosis with chronic narcotic use, osteoarthritis)
Past Surgical History: and Orthopedic
Social History
Tobacco: Smoker
Alcohol: Former (Heavy alcohol use in the past, quit in November)
Drug: None
Living: Alone
Family History
Family History: Other (Family members with history of alcoholic cirrhosis)
Allergies / Home Medications
Allergy/AdvReac Type Severity Reaction Status Date / Time
carisoprodol [From Soma] Allergy Unknown Verified 01/29/24 14:15
duloxetine [From Cymbalta] Allergy patient no Verified 01/29/24 14:15
aware of
an allergy
to this
medication
mold Allergy sneezing, Verified 01/29/24 14:15
coughing,
headaches
pollen extracts Allergy sneezing,he Verified 01/29/24 14:15
adaches
pseudoephedrine HCl Allergy heart Verified 01/29/24 14:15
[From Sudafed] races,
tingling
DUST Allergy sneezing, Uncoded 01/29/24 14:15
headaches
�Medication �Instructions �Recorded
quetiapine 200 mg tablet (Seroquel) 200 mg PO HS depression 12/13/16
cholecalciferol (vitamin D3) 25 25 mcg PO DAILY supplement ##0 12/10/20
mcg (1,000 unit) tablet (Vitamin
D3)
folic acid 1 mg tablet 1 mg PO DAILY supplement ##0 12/10/20
hydroxychloroquine 200 mg tablet 200 mg PO BID rheumatoid arthritis 12/10/20
omeprazole 40 mg capsule,delayed 40 mg PO DAILY Gastrointestinal 12/10/20
release Issue
pregabalin 300 mg capsule 300 mg PO DAILY seizures/pain 12/10/20
sertraline 100 mg tablet 200 mg PO HS depression 12/10/20
alendronate 70 mg tablet (Fosamax) 70 mg PO MO osteoporosis 12/14/23
alprazolam 2 mg tablet 2 mg PO TID anxiety 12/14/23
biotin 5 mg tablet 5 mg PO DAILY supplement 12/14/23
calcium carbonate 500 mg PO DAILY supplement 12/14/23
cyanocobalamin (vitamin B-12) 1,000 mcg PO DAILY supplement 12/14/23
1,000 mcg tablet
doxycycline hyclate 100 mg tablet 100 mg PO Q48H acne 12/14/23
milk thistle 150 mg capsule 150 mg PO DAILY Supplement 12/14/23
phenytoin sodium extended 100 mg 100 mg PO BID seizures 12/14/23
capsule
therapeutic multivitamin 1 tab PO DAILY supplement 12/14/23
furosemide 20 mg tablet 20 mg PO DAILY #30 tabs 12/16/23
oxycodone 30 mg tablet 30 mg PO QID 01/29/24
potassium 99 mg tablet 99 mg PO DAILY 01/29/24
spironolactone 100 mg tablet 100 mg PO DAILY 01/29/24
Review of Systems
-
History Source: Patient
Constitutional: Reports No Symptoms
EENT: Reports No Symptoms
Respiratory: Reports No Symptoms
Cardiac: Reports No Symptoms
Abdomen/GI: Reports Abdominal Pain, Nausea and Vomiting
: Reports No Symptoms
Musculoskeletal: Reports Other (Back pain)
Skin: Reports No Symptoms
Neurological: Reports Weakness and Other (Increased confusion)
Vital Signs
Temp Pulse Resp BP Pulse Ox
99.2 F 88 20 113/60 94
01/30/24 07:55 01/30/24 07:55 01/30/24 07:55 01/30/24 07:55 01/30/24 07:55
Physical Exam
Exam
General: Other (Chronically ill, pale-appearing female in mild distress secondary to pain)
HEENT: Normocephalic, Anicteric and Atraumatic
Respiratory: Clear
Cardiac: S1/S2 and Regular Rhythm
Breast: Deferred by me
GI: Soft, Normal Bowel Sounds, Tender (Right upper quadrant) and Distended
Skin: Warm and Dry
Neuro: Awake and Alert
Psych: Calm
Results
WBC 11.9 10^3/uL (4.8-10.8) H 01/30/24 06:36
Hgb 8.9 g/dL (12.0-16.0) L 01/30/24 06:36
Hct 26.3 % (37.0-47.0) L 01/30/24 06:36
MCV 92.0 fL (81.0-99.0) 01/30/24 06:36
Plt Count 95 10^3/uL (130-400) L 01/30/24 06:36
Absolute Neuts (auto) 9.6 10^3/uL (1.4-6.5) H 01/30/24 06:36
PT 21.3 Sec (11.4-14.6) H 01/29/24 21:29
INR 1.87 01/29/24 21:29
Sodium 135 mmol/L (135-145) 01/30/24 06:36
Potassium 3.8 mmol/L (3.5-5.1) 01/30/24 06:36
Chloride 107 mmol/L (98-107) 01/30/24 06:36
Carbon Dioxide 24 mmol/L (22-30) 01/30/24 06:36
BUN 19 mg/dl (7-17) H 01/30/24 06:36
Creatinine 0.6 mg/dL (0.6-1.0) 01/30/24 06:36
Calcium 8.1 mg/dl (8.4-10.2) L 01/30/24 06:36
Total Bilirubin 1.2 mg/dl (0.2-1.3) 01/30/24 06:36
AST 93 U/L (14-36) H 01/30/24 06:36
ALT 20 U/L (0-35) 01/30/24 06:36
Alkaline Phosphatase 81 U/L (38-126) 01/30/24 06:36
Lipase 31 U/L (23-300) 01/29/24 16:45
Diagnostic Image Results:
01/29/2024 US abdomen: IMPRESSION:
1. Small volume of upper abdominal ascites.
2. MODERATE HEPATIC CIRRHOSIS.
3. Moderate splenomegaly secondary to portal hypertension.
4. Distended gallbladder and common bile duct.
01/29/2024 CT head: IMPRESSION:
1. No CT evidence for acute intracranial hemorrhage or transcortical infarct.
2. Mild diffuse cerebral and cerebellar volume loss.
3. Minimal white matter leukoaraiosis in both cerebral hemispheres.
01/22/24 MRI abdomen w/ and w/o contrast: IMPRESSION: Normal appearance of the gallbladder with no evidence for biliary ductal dilation. Hepatic cirrhosis with splenomegaly. Moderate amount of ascites in all 4 quadrants. No evidence for hepatic mass
lesion, with no findings to suggest hepatocellular carcinoma. Levoconvex scoliosis with degenerative changes of the spine. Susceptibility artifact from fusion hardware at L4 and L5. Significant degenerative signal change involving both sacroiliac
joints, right greater than left.
Prior GI Procedures:
EGD: None
Colonoscopy: None
Assessment / Plan
-
The patient is a 58-year-old female with a past medical history significant for decompensated alcoholic liver cirrhosis, history of hep C with treatment with interferon in ribavirin in 1998, GERD, seizure disorder on Dilantin, chronic doxycycline
for acne, history of IV drug abuse, depression, anxiety, chronic opiates secondary to spinal stenosis, who presented to the emergency room with complaints of mid epigastric pain and right upper quadrant pain. We are being asked to evaluate for her
presenting symptoms with abnormal ultrasound concerning for cholecystitis with CBD dilation and known history of decompensated liver cirrhosis. Noted interval history as above, with new onset diagnosis of liver cirrhosis in November likely
secondary to alcohol use with decompensation with ascites. Ultrasound imaging on admission concerning for ?cholecystitis with gallbladder distention and CBD dilation 1cm (previously normal on MRI one week ago). LFTs are not significantly elevated
to suggest cholangitis or acute biliary obstruction but with CBD findings cannot rule this out. Her pain has improved. She continues on diuretics for ascites, which was small in volume on ultrasound imaging this admission. She is n.p.o. for
further imaging. She denies further alcohol use. Lipase is normal. Started on antibiotics with IV vancomycin and Zosyn with gram-positive bacteremia and leukocytosis.
Problem list:
-Abdominal pain, with concern for ?cholecystitis with CBD dilation and distended gallbladder, no cholelithiasis
-minimally elevated LFT's, improving
-Decompensated alcoholic liver cirrhosis with ascites, MELD-Na 17
-Elevated ammonia level, ?HE
-Leukocytosis
-Gram-positive bacteremia
-History of hepatitis C with treatment
Other current medical history:
-Seizure disorder on Dilantin
-GERD
-History of IV drug use
-Anxiety/depression
-Spinal stenosis on chronic opiates
Recommendations:
-Etiology of abdominal pain possibly secondary to choledocholithiasis with evidence of CBD dilation on ultrasound versus cholecystitis versus less likely cholangitis versus other.
---Also with gram-positive bacteremia, placed on IV vancomycin and Zosyn by the medical team. MRI 1 week ago without biliary dilation or any findings to suggest HCC or cholecystitis. UA with no overt sign of infection.
-Would recommend MRI with MRCP for further evaluation with new biliary dilation of the CBD (that was previously normal 1 week ago). To review with radiology to see if this can be done today.
-NPO for now, if no MRI today can give CLD diet.
-If MRI unrevealing, to consider surgery evaluation v HIDA scan, defer to hospitalist
-Follow blood cultures, started on IV vancomycin and Zosyn with G+ bacteremia.
-Monitor MELD-Na labs daily
-Surgery risk stratification if indicated: Child-Hopkins score 8/Class B indicating an abdominal surgery liz-operative mortality rate of 30%; VOCAL-Jose score (Post-operative outcomes: 30-day mortality 1.0%, 90-day mortality 1.8%, 180 day mortality
4.1%; 90 day decompensation 15.8%- based on ASA score of 3).
-Continue diuretics and monitor renal function. No indication for paracentesis based on US imaging
-Continue alcohol abstinence
-Consider initiation of Xifaxan v lactulose given some increased confusion, although oriented now. Ammonia mildly elevated on admission.
-PRN analgesics/antiemetics as per hospitalist
-OP follow-up with hepatology and Dr. Watkins.
-Will follow
Data Reviewed
-
Ultrasound: Report Reviewed by me and Discussed with Physician
MRI: Report Reviewed by me and Discussed with Physician
Old Records: Reviewed
-
-
Thank you for consultation and allowing me to participate in the patient's care. Please call the applications tester GI physician during the after hours with any questions or concerns.
[2024-01-30] MEDS: LASIX 20 MG PO (09:08)
[2024-01-30] MEDS: OSCAL CAL 500 500 MG PO (09:09)
[2024-01-30] MEDS: DILANTIN 100 MG PO ×2 (09:09→19:48)
[2024-01-30] MEDS: PLAQUENIL 200 MG PO ×2 (09:09→19:48)
[2024-01-30] MEDS: LYRICA 300 MG PO (09:09)
[2024-01-30] MEDS: XANAX 2 MG PO ×2 (09:15→17:29)
--- NOTE | 2024-01-30 09:55 | PHA.VAN.IN ---
Assessment
- Assessment
Renal Function: Appears similar to baseline
Concomitant Antimicrobials: piperacillin/tazo; hydroxychloroquine
AUC Dosing Plan
- Dosing Variables
Dosing Weight (kg): 73
Dosing CrCl (ml/min): 93
Vd coefficient (L/kg): 0.7
- Empiric Dosing
Initial / Loading Dose: 1000 mg x 1 now
Maintenance Regimen: 1000 mg q12h - start 1800 today ( in lieu of load)
Estimated AUC (mcg*h/mL): 499
Estimated Peak (mcg*h/mL): 31.3
Estimated Trough (mcg/ml): 12.8
Estimated Half Life (H): 8.5
- Monitoring
No levels ordered at this time: consider levels when pt reaches steady state
Pharmacokinetics Vancomycin I
- -
Patient Age: 58
Patient Sex: Female
Vancomycin Day #: 1
Indication: Bacteremia
Requesting Provider: Lalyu
Pertinent Antimicrobial Allergies:
dust, pollen,mold,Soma, Cymbalta, Sudafed
Height / Weight:
Height 5 ft 6 in
Actual Weight 73.227 kg
Pertinent Past Medical History: ETOH abuse and former IVDA
- Vital Signs / Lab Results
Temp Pulse Resp BP Pulse Ox
99.2 F 88 20 113/60 94
01/30/24 07:55 01/30/24 09:08 01/30/24 07:55 01/30/24 09:08 01/30/24 07:55
Lab Results - Hematology
01/29/24 01/30/24
16:45 06:36
WBC 17.5 H 11.9 H
Lab Results - Chemistry
01/29/24 01/30/24
16:45 06:36
BUN 15 19 H
Creatinine 0.6 0.6
Estimated Creat Clear 97 93
Albumin 3.3 L 2.9 L
01/29/24 01/29/24
16:46 21:39
Lactic Acid 2.1 H 1.4
Lab Results - Urine
01/29/24
18:02
Urine Nitrite (Reflex) Negative
Leukocyte Esterase Rfl Trace A
Urine WBC (Reflex) 0-2
Urine Bacteria (Reflex) Few A
Microbiology Results
01/29/24 16:45 Blood Culture - Preliminary
Blood/Venous Positive culture in progress
Gram Stain - Preliminary
01/29/24 18:12 Blood Culture - Preliminary
Blood/Venous Positive culture in progress
Gram Stain - Preliminary
--- NOTE | 2024-01-30 10:25 | W.PN.UPDATE ---
Update Note
Progress Note Update
For billing purposes
[2024-01-30] MEDS: VANCOCIN 200 IV ×2 (13:29→17:22)
--- NOTE | 2024-01-30 14:42 | CON.GS ---
Consultation
-
Date/Time Consultation Requested: 01/30/2024 8 AM
Date/Time Consultation Performed: 12/01/2023 2 PM
Requesting Provider: Hospitalist
Performing Provider: Rima
Reason for Consultation: Right upper quadrant pain
Medical History
-
Chief Complaint: Abdominal pain
History of Present Illness:
Patient is a 58-year-old female with recent history of admission for decompensated cirrhosis with ascites in the setting of a history of alcohol abuse and prior history of hepatitis C underwent paracentesis in December as well.
During current evaluation patient is quite somnolent but responsive to stimulus. She rapidly falls back asleep and it is difficult to obtain a history from her. From reviewing medical records and in limited discussions with patient she states that
she has had abdominal pain for a week or so present in the epigastric and right upper quadrant. Seems like the pain is persistent not necessarily exacerbated by meals or eating. She states that she has not been eating much due to anorexia/not much
appetite. She denies any nausea, no vomiting. Pain is worse with positions such as bending over or palpating the area. She also feels more pressure in the right upper quadrant after eating. Further history again unable to be obtained secondary
to patient's somnolence..
Past Medical History
Past Medical History: Other (GERD, seizures, anxiety, decompensated cirrhosis secondary to alcohol with history of ascites, history of hepatitis C status posttreatment, spinal stenosis with chronic back pain and chronic narcotic use, osteoarthritis)
Past Surgical History: and Orthopedic
Social History
Tobacco: Smoker
Alcohol: Former (Quit alcohol in November)
Living: Alone
Allergies / Home Medications
Allergy/AdvReac Type Severity Reaction Status Date / Time
carisoprodol [From Soma] Allergy Unknown Verified 01/29/24 14:15
duloxetine [From Cymbalta] Allergy patient no Verified 01/29/24 14:15
aware of
an allergy
to this
medication
mold Allergy sneezing, Verified 01/29/24 14:15
coughing,
headaches
pollen extracts Allergy sneezing,he Verified 01/29/24 14:15
adaches
pseudoephedrine HCl Allergy heart Verified 01/29/24 14:15
[From Sudafed] races,
tingling
DUST Allergy sneezing, Uncoded 01/29/24 14:15
headaches
�Medication �Instructions �Recorded �Confirmed �Type
quetiapine 200 mg tablet (Seroquel) 200 mg PO HS depression 12/13/16 01/29/24 History
cholecalciferol (vitamin D3) 25 25 mcg PO DAILY supplement ##0 12/10/20 01/29/24 History
mcg (1,000 unit) tablet (Vitamin
D3)
folic acid 1 mg tablet 1 mg PO DAILY supplement ##0 12/10/20 01/29/24 History
hydroxychloroquine 200 mg tablet 200 mg PO BID rheumatoid arthritis 12/10/20 01/29/24 History
omeprazole 40 mg capsule,delayed 40 mg PO DAILY Gastrointestinal 12/10/20 01/29/24 History
release Issue
pregabalin 300 mg capsule 300 mg PO DAILY seizures/pain 12/10/20 01/29/24 History
sertraline 100 mg tablet 200 mg PO HS depression 12/10/20 01/29/24 History
alendronate 70 mg tablet (Fosamax) 70 mg PO MO osteoporosis 12/14/23 01/29/24 History
alprazolam 2 mg tablet 2 mg PO TID anxiety 12/14/23 01/29/24 History
biotin 5 mg tablet 5 mg PO DAILY supplement 12/14/23 01/29/24 History
calcium carbonate 500 mg PO DAILY supplement 12/14/23 01/29/24 History
cyanocobalamin (vitamin B-12) 1,000 mcg PO DAILY supplement 12/14/23 01/29/24 History
1,000 mcg tablet
doxycycline hyclate 100 mg tablet 100 mg PO Q48H acne 12/14/23 01/29/24 History
milk thistle 150 mg capsule 150 mg PO DAILY Supplement 12/14/23 01/29/24 History
phenytoin sodium extended 100 mg 100 mg PO BID seizures 12/14/23 01/29/24 History
capsule
therapeutic multivitamin 1 tab PO DAILY supplement 12/14/23 01/29/24 History
furosemide 20 mg tablet 20 mg PO DAILY #30 tabs 12/16/23 01/29/24 Rx
oxycodone 30 mg tablet 30 mg PO QID Pain 01/29/24 01/29/24 History
potassium 99 mg tablet 99 mg PO DAILY Supplement 01/29/24 01/29/24 History
spironolactone 100 mg tablet 100 mg PO DAILY Blood Pressure 01/29/24 01/29/24 History
Review of Systems
-
Unable to obtain full review of systems at this time due to: Other (Patient's somnolent and poor historian)
History Source: Patient
All other systems: Negative unless noted
A 10 point review of systems was completed, and was negative except as per HPI.
Physical Exam
Vital Signs
Temp Pulse Resp BP Pulse Ox
99.2 F 88 20 113/60 94
01/30/24 07:55 01/30/24 09:08 01/30/24 07:55 01/30/24 09:08 01/30/24 08:55
01/29/24 01/30/24 01/31/24
06:59 06:59 06:59
Actual Weight 73.227 kg
Body Mass Index (BMI) 26.1
Lab Results
01/30/24 06:36
01/30/24 06:36
WBC 11.9 10^3/uL (4.8-10.8) H 01/30/24 06:36
Hgb 8.9 g/dL (12.0-16.0) L 01/30/24 06:36
Hct 26.3 % (37.0-47.0) L 01/30/24 06:36
Plt Count 95 10^3/uL (130-400) L 01/30/24 06:36
Abs Immat Gran (auto) 0.1 10^3/uL (0-0.05) H 01/30/24 06:36
Neutrophils % 80.4 % (42.2-75.2) H 01/30/24 06:36
Physical Exam
General: Well Developed, Well Nourished, Comfortable and Other (Asleep/somnolent but arouses to stimulus. She falls back asleep throughout our examination and evaluation)
HEENT: Normocephalic, Anicteric and Scleral Icterus
Respiratory: Non Labored Respirations
Cardiac: Regular Rhythm
GI: Soft, Non Distended and Tender (Tender to palpation right upper quadrant with voluntary guarding. Palpable liver margin/edge firm and a few fingerbreadths below the right costal margin.)
Skin: Jaundice
Neuro: AO x 3 and Sedated
Psych: Calm
Data Reviewed
-
Ultrasound: Image Personally Visualized and interpreted
MRI: Image Personally Visualized and interpreted
Labs: Labs Reviewed by me
Assessment / Plan
-
Assessment: 58-year-old female with history of decompensated alcoholic liver disease/cirrhosis with ascites, last paracentesis 01/08/2024. Presenting with acute onset right upper quadrant abdominal pain uncertain etiology and Streptococcus
bacteremia on blood cultures yesterday through emergency department evaluation.
General surgery consultation requested for evaluation gallbladder as potential etiology to symptoms/presentation.
Ultrasound abdomen 01/29/2024 imaging personally reviewed as well as radiologist report. Distended gallbladder but there does not appear to be significant wall thickening. Some pericholecystic fluid but this is more likely reflective of
intra-abdominal ascites. No gallstones or sludge identified. Common bile duct mildly dilated up to 1 cm.
MRCP 01/30/24: Radiologist report pending. Images personally reviewed. Similar somewhat physiologically appearing distended gallbladder which may just be due to fasting state. Does not appear to much more distended than on previous MR imaging and
ultrasound imaging from December and November. No gallstones. No sludge. No obvious choledocholithiasis on my review. Radiologist report remains pending.
Remain uncertain as to the etiology of the patient's right upper quadrant abdominal pain and bacteremia. No stones or sludge seen on numerous gallbladder imaging studies including ultrasound and MRI. No significant gallbladder wall thickening or
pericholecystic edema. Tenderness remains in the right upper quadrant.
Plan: No indications for urgent cholecystectomy as diagnosis of acute cholecystitis remains in question/uncertain
Continue further workup of abdominal pain with CT abdomen/pelvis with contrast
Await finalization of blood cultures
Await radiologist reading of MRCP
Okay for clear liquid diet from surgical standpoint while undergoing further workup
[2024-01-30 15:34] VITALS: BP 101/61
[2024-01-30] MEDS: LOVENOX 40 MG SC (17:22)
[2024-01-30] MEDS: ZOLOFT 200 MG PO (21:35)
[2024-01-30 23:55] VITALS: BP 125/73
[2024-01-31] MEDS: ZOSYN 50 IV ×2 (01:28→08:25)
[2024-01-31] MEDS: VANCOCIN 200 IV (05:19)
[2024-01-31 06:00] VITALS: BMI 25.9
--- NOTE | 2024-01-31 06:35 | W.PN.HOSP.TC ---
Today's Communication/Plan
-
cont abx as per ID
possible EUS/ERCP as per GI
diet advanced to low residue
Lactulose started for Hepatic Encephalopathy
Incentive Spirometer
Reduced dose Xanax 1.5 TIDPRN
pain control
PT/OT
Assessment / Plan
Assessment / Plan
Physical Exam
General: No pallor, cyanosis, or jaundice.
HEENT: Throat clear. PERRLA Normocephalic atraumatic
NECK: Supple. No JVD Carotid Bruits
RESPIRATORY: Lungs clear to auscultation. No crackles wheezes stridor
CVS: S1, S2 normal. RRR. No murmur, rub or gallop.
ABDOMEN: Soft, distended tender. decreased bowel sounds
EXTREMITIES: No peripheral cyanosis or edema.
TECHNICIAN ANATOMIC PATHOLOGY: AOx3, some confusion forgetfullness noted asterixis
58y F with PMH significant for Hep C s/p treatment, alcohol abuse and cirrhosis who presents to ED complaining of abdominal pain epigastric and RUQ areas
#Abdominal pain with CBD dilatation/leukocytosis
#Bacteremia
#possible Infectious discitis
Abd US noted moderate hepatic cirrhosis, small volume ascities, moderate splenomegaly 2/2 portal hyn, distended gallbladder and CBD duct
Urine drug screen positive opiates, oxycodone, benzos, barbiturates, tricyclic's
Lactic acid 2.1 resolved
Blood cultures positive for strep species, blood cultures repeated
ID eval appreciated empiric vanc zosyn narrowed to unasyn
MRI/MRCP appreciated
-mod biliary gallbladder dilatation, mild pancreactic ductal dilatation, possible obstructing stricture ampulla
-moderate hepatic cirrhosis
-Portal htn w/ mod to severe splenomegaly
-small ascites
-previous instrumentation L4/L5 possible acute infectious discitis
-lower lobes possible atelectasis vs pna (incentive spirometer ordered)
CT abd/pelvis findings consistent with MRI
GI eval appreciated considering EUS/ERCP
surgery eval appreciated Checking CA 19-9, CEA, CA125, no surgical intervention recommended at this time.
#Chronic mild memory impairment-Per daughter ongoing since November [address] head: No evidence of acute intracranial hemorrhage or transcortical infarct. Mild diffuse cerebral and cerebellar volume loss
#Hypokalemia
monitor and replete as necessary
#History of cirrhosis
#Hep C-treated
#Hepatic encephalopathy confusion forgetfulness, asterixis
#Portal HTN
-Paracentesis x 2 November and mid December 2023
-Hold spironolactone 100 mg daily soft pressures
-continue Lasix 20 mg daily
-started lactulose 01/30, continue
#Chronic thrombocytopenia 2/2 cirrhosis
platelets stable
monitor
#Chronic anemia
H&H stable
monitor
#GERD
-Continue Prilosec, calcium carbonate
#Former alcohol abuse-stopped end of November 2023
#Drinks on weekends according to daughter
-Alcohol level negative Tylenol salicylate negative
#Rheumatoid arthritis/OA with chronic wrist deformities
#Chronic pain on chronic oral opiates
-hydroxychloroquine 200 mg twice daily
-Oxycodone 30 mg 4 times daily prn
-Patient on Fosamax monthly
#Seizure disorder
No seizure over 20 years
-Continue phenytoin 100 mg twice daily, Lyrica 300 mg daily
#Anxiety
-Patient on Xanax 2 mg 3 times daily switched to prn, reduced to 1.5 mg TIDPRN d/t concerns confusion cognitive memory issues.
#Depression
-Continue Zoloft 100 mg at bedtime, Seroquel 200 mg at bedtime
PT/OT SNF rehab
DVT prophylaxis Subcu Lovenox
Full code
I spent a total of 55 minutes with the patient or on the floor. More than 50% of this time involved counseling and coordination of care.
Anticipated Discharge: > 48 hours
Subjective/Interval History
-
Date of Service: January 31, 2024
Eager to eat solid food. Reports overall improvement symptoms though some confusion forgetfulness noted. Asterixis noted
Objective Data
-
Labs:
Laboratory Results
01/31/24
06:00
WBC Pending
Hgb Pending
Hct Pending
Plt Count Pending
Sodium Pending
Potassium Pending
Chloride Pending
Carbon Dioxide Pending
BUN Pending
Creatinine Pending
Glucose Pending
Calcium Pending
Total Bilirubin Pending
AST Pending
ALT Pending
Alkaline Phosphatase Pending
Vital Signs:
Vital Signs
Temp Pulse Resp BP Pulse Ox
99.0 F 60 18 125/73 94
01/30/24 23:55 01/30/24 23:55 01/30/24 23:55 01/30/24 23:55 01/30/24 23:55
I&O
01/29/24 01/30/24 01/31/24
06:59 06:59 06:59
Intake Total 980 / 980
Output Total 780 / 780 700 / 700
Balance -780 / -780 280 / 280
[2024-01-31 07:28] VITALS: BP 128/78
[2024-01-31 08:01] LABS: % Basophils 0.5 % (0-2); % Eosinophils 0.2 % (0-6); % Immature Granulocytes 0.5 % (0-0.5); % Lymphocytes 9.3 % (20.5-51.1); % Monocytes 10.1 % (1.7-9.3); % Neutrophils 79.4 % (42.2-75.2); Absolute Basophils 0.1 10^3/uL (0-0.2); Absolute Immature Granulocytes 0.1 10^3/uL (0-0.05); Absolute Lymphocytes 0.9 10^3/uL (1.2-3.4); Absolute Neutrophils 7.7 10^3/uL (1.4-6.5); Hematocrit 27.1 % (37.0-47.0); Hemoglobin 9.1 g/dL (12.0-16.0); Mean Corp Hgb Conc. 33.6 g/dL (33.0-37.0); Mean Corpuscular Hgb 30.6 pg (27.0-31.0); Mean Corpuscular Volume 91.2 fL (81.0-99.0); Mean Platelet Volume 10.6 fL (7.4-10.4); Nucleated Red Blood Cells % 0 %; Platelet Count 108 10^3/uL (130-400); Red Blood Cell Count 2.97 10^6/uL (4.20-5.40); Red Cell Dist. Width 14.1 % (11.5-14.5); White Blood Cell Count 9.7 10^3/uL (4.8-10.8)
[2024-01-31] MEDS: OSCAL CAL 500 500 MG PO (08:11)
[2024-01-31] MEDS: LASIX 20 MG PO (08:11)
[2024-01-31] MEDS: PROTONIX 40 MG PO (08:11)
[2024-01-31] MEDS: DILANTIN 100 MG PO ×2 (08:11→21:12)
[2024-01-31] MEDS: PLAQUENIL 200 MG PO ×2 (08:11→21:13)
[2024-01-31] MEDS: LYRICA 300 MG PO (08:11)
[2024-01-31] MEDS: XANAX 2 MG PO (08:16)
[2024-01-31] MEDS: ROXICODONE 30 MG PO ×2 (08:16→21:12)
[2024-01-31] MEDS: OMNIPAQUE 50 ML PO (08:20)
[2024-01-31 08:41] LABS: ALT (SGPT) 23 U/L (0-35); AST (SGOT) 95 U/L (14-36); Albumin 2.9 g/dl (3.5-5.0); Alkaline Phosphatase 84 U/L (38-126); Blood Urea Nitrogen 15 mg/dl (7-17); Calcium 8.1 mg/dl (8.4-10.2); Chloride 104 mmol/L (98-107); Estimated Creatinine Clearance 93 ml/min; Glucose 109 mg/dl (70-99); Potassium 3.4 mmol/L (3.5-5.1); Sodium 131 mmol/L (135-145); Total Bilirubin 1.2 mg/dl (0.2-1.3); Total Protein 7.6 g/dl (6.3-8.2); eGFR > 60.00
--- NOTE | 2024-01-31 08:41 | W.PN.GI.CBS2 ---
Today's Communication / Plan
-
Assessment and plan for details.
Assessment / Plan
-
1. Right upper quadrant pain: With mild CBD dilation, though LFTs only very minimally elevated, with strep species bacteremia, less likely to be cholangitis. This dilation is new, however, and does also have some pancreatic duct dilation which is
new. Her leukocytosis has improved, afebrile overnight. Appreciate surgery input, await CT scan today, as well as identification of bacteria. Only very mild ascites on imaging, recent paracentesis negative, SBP is less likely. Continue
broad-spectrum antibiotics and will trend clinical course. If CT scan unremarkable could try to advance diet. May need to consider EUS with possible ERCP given new CBD and pancreatic duct dilation, as well as possible repeat paracentesis pending
CT scan and clinical course. I discussed with Dr. Abarca.
2. Cirrhosis: secondary to alcohol primarily, with previous hepatitis C status posttreatment in the , decompensated with ascites and edema, only small volume ascites now on imaging, less likely SBP with focal pain, previous paracentesis
negative, though pending CT and clinical course may need to repeat paracentesis. Alert and orient x 3 now. Continue low-dose Lasix.
3. Bacteremia: Strep species, unclear source, await CT scan, identification, continue antibiotics.
Subjective
Subjective
Date of Service: January 31, 2024
Patient feeling a little better, less abdominal pain though still having some, no vomiting, no fevers overnight.
Objective
Data Reviewed
Laboratory Data:
Laboratory Results
01/31/24 07:09
01/31/24 07:09
Laboratory Results
PT 21.3 Sec (11.4-14.6) H 01/29/24 21:29
INR 1.87 01/29/24 21:29
Magnesium 1.4 mg/dl (1.6-2.3) L 01/29/24 16:45
Total Bilirubin 1.2 mg/dl (0.2-1.3) 01/31/24 07:09
AST 95 U/L (14-36) H 01/31/24 07:09
ALT 23 U/L (0-35) 01/31/24 07:09
Alkaline Phosphatase 84 U/L (38-126) 01/31/24 07:09
Lipase 31 U/L (23-300) 01/29/24 16:45
Vital Signs and I&O:
Vital Signs
Temp Pulse Resp BP Pulse Ox
97.8 F 89 18 128/78 94
01/31/24 07:28 01/31/24 07:28 01/31/24 07:28 01/31/24 07:28 01/31/24 07:28
I&O
01/30/24 01/31/24 02/01/24
06:59 06:59 06:59
Intake Total 980 / 980
Output Total 780 / 780 700 / 700
Balance -780 / -780 280 / 280
Physical Exam
Physical Exam
General: NAD, alert and orient x 3
Abdomen: normal bowel sounds, soft, mild and improved right upper quadrant tenderness, no masses or bruits, no ascites
[2024-01-31 08:51] LABS: Carbon Dioxide 24 mmol/L (22-30)
[2024-01-31 10:19] VITALS: BP 108/59; PULSE 83; O2SAT 95
[2024-01-31 10:46] VITALS: BP 108/59; PULSE 83; O2SAT 95
--- NOTE | 2024-01-31 11:25 | W.PN.GS2 ---
Addendum entered and electronically signed by William Abarca MD 01/31/24 13:06:
Patient seen and examined. Much more conversive today and sitting up in chair at bedside. She does recall our conversation from yesterday.
Continued epigastric discomfort/pain. Improved from initial presentation but still uncomfortable.
No nausea, no vomiting
Not much appetite
AFVSS
ABD: Soft, epigastric and right upper quadrant tenderness on palpation. No rebound rigidity or guarding.
MRCP: Biliary and pancreatic ductal dilation and gallbladder distention contiguous with biliary dilation/distention. Given these findings there is concern for possible obstructing stricture/abnormality in the region of the ampulla. Diffuse
pancreatic atrophy. No additional notable findings.
A/P: 58-year-old female with epigastric/right upper quadrant abdominal pain in the setting of history of alcohol abuse, cirrhosis with ascites presenting with biliary ductal dilation as well as pancreatic ductal dilation.
No further signs on MRI suggestive of cholecystitis.
Suspect possible biliary obstructive process here given 'double duct sign' and gallbladder distention which is likely also reflective of possible biliary obstructive process.
No indications for cholecystectomy or other surgical acute interventions
Check CA 19-9, CEA, CA125
Recommend endoscopic ultrasound +/- ERCP/brushings
Signing off, will follow peripherally, please call if further surgical concerns or questions
Original Note:
Today's Communication / Plan
-
CT pending
Assessment / Plan
-
Patient is a 58-year-old female with recent history of admission for decompensated cirrhosis with ascites in the setting of a history of alcohol abuse and prior history of hepatitis C underwent paracentesis in December as well. Presenting with acute
onset right upper quadrant abdominal pain uncertain etiology and Streptococcus bacteremia on blood cultures
AFVSS, mentation improved today. WBC normalized
MRCP with biliary dilatation, ?obstructing stricture at ampulla. No choledocholithiasis. No cholelithiasis
--CT imaging pending for further evaluation
--No indication for cholecystectomy at this time
--Diet advancement as per GI team pending imaging
Subjective Data
-
Date of Service: January 31, 2024
Patient seen and examined at bedside with Dr. Abarca. Sleepy but OOB to chair today and more conversive. Denies n/v. RUQ discomfort persists.
Objective Data
-
Intake and Output
01/30/24 01/31/24 02/01/24
06:59 06:59 06:59
Intake Total 980 / 980
Output Total 780 / 780 700 / 700
Balance -780 / -780 280 / 280
Intake:
Oral fluids 680 / 680
IV piggybacks 300 / 300
Output:
Straight cath output 780 / 780 700 / 700
Vital Signs
Temp Pulse Resp BP Pulse Ox
97.8 F 89 18 128/78 94
01/31/24 07:28 01/31/24 07:28 01/31/24 07:28 01/31/24 07:28 01/31/24 07:28
Lab Results
01/31/24 07:09
01/31/24 07:09
Calcium 8.1 mg/dl (8.4-10.2) L 01/31/24 07:09
Magnesium 1.4 mg/dl (1.6-2.3) L 01/29/24 16:45
Total Bilirubin 1.2 mg/dl (0.2-1.3) 01/31/24 07:09
Direct Bilirubin 0.5 mg/dl (0.0-0.4) H 01/29/24 16:45
AST 95 U/L (14-36) H 01/31/24 07:09
ALT 23 U/L (0-35) 01/31/24 07:09
Alkaline Phosphatase 84 U/L (38-126) 01/31/24 07:09
Total Protein 7.6 g/dl (6.3-8.2) 01/31/24 07:09
Albumin 2.9 g/dl (3.5-5.0) L 01/31/24 07:09
Physical Exam
-
NAD, Ox3 but sleepy
ABD soft, tender to RUQ, palpable liver margins/firm
Skin pale/mild jaundice
--- NOTE | 2024-01-31 11:46 | PHA.VAN.FU ---
Vancomycin Assessment / Plan
- Assessment
Renal Function: Stable
WBC's are: WNL
In the past 24 hrs, patient has been: Afebrile
Concomitant Antimicrobials: Piperacillin/tazo; hydroxychloroquine
- Dosing Plan
Continue: vancomycin 1000 mg q12h
- Monitoring Plan
Peak Level: 01/31 2030
Trough Level: 02/01 530
- Follow Up
Pharmacy will continue to follow.
Vancomycin Follow UP
- -
Patient Age: 58
Patient Sex: Female
Vancomycin Day #: 2
Indication: Bacteremia
Requesting Provider: Liss
Pertinent Antimicrobial Allergies:
dust, pollen,mold,Soma, Cymbalta, Sudafed
Height / Weight:
Height 5 ft 6 in
Actual Weight 72.745 kg
Pertinent Past Medical History: ETOH abuse and former IVDA
- Vital Signs / Lab Results
Temp Pulse Resp BP Pulse Ox
97.8 F 89 18 128/78 94
01/31/24 07:28 01/31/24 07:28 01/31/24 07:28 01/31/24 07:28 01/31/24 07:28
Lab Results - Hematology
01/29/24 01/30/24 01/31/24
16:45 06:36 07:09
WBC 17.5 H 11.9 H 9.7
Lab Results - Chemistry
01/29/24 01/30/24 01/31/24
16:45 06:36 07:09
BUN 15 19 H 15
Creatinine 0.6 0.6 0.6
Estimated Creat Clear 97 93 93
Albumin 3.3 L 2.9 L 2.9 L
01/29/24 01/29/24
16:46 21:39
Lactic Acid 2.1 H 1.4
Microbiology Results
01/30/24 04:58 MRSA Screen - Final
Nose No Methicillin Resistant Staphylococcus aureus isolated.
01/30/24 10:14 Blood Culture - Preliminary
Blood/Venous No Growth in 24 hours- Final report to follow
01/30/24 09:47 Blood Culture - Preliminary
Blood/Venous No Growth in 24 hours- Final report to follow
01/29/24 18:12 Blood Culture - Preliminary
Blood/Venous Streptococcus species
Gram Stain - Preliminary
01/29/24 16:45 Blood Culture - Preliminary
Blood/Venous Positive culture in progress
Gram Stain - Preliminary
[2024-01-31 11:56] VITALS: BP 110/66
--- NOTE | 2024-01-31 13:21 | CON.ID ---
Consultation
-
Date/Time Consultation Requested: January 31, 2024 0811
Date/Time Consultation Performed: January 31, 2024 1320
Requesting Provider: Dr. Dale Leija
Performing Provider: Dr. Mireya Ramirez
Reason for Consultation: Bacteremia, discitis
Chief Complaint / Past History
Chief Complaint
Back pain an epigastric pain
History of Present Illness
History obtained from review medical records, from her sister at bedside, and some from the patient. She is a 58-year-old female with alcohol abuse, cirrhosis, remote history of hepatitis C treated, chronic low back pain on chronic opiates, history
of L4-L5 decompression with hardware who was brought to the hospital on January 28 when daughter found her on the floor next to the bed. Patient has been having worsening back pain on the right side which she thought was sciatic pain. Pain since last
week. She also has been complaining of epigastric pain and right upper quadrant pain. No fevers at home. No chills. However her legs were weak and she fell off of her bed and unable to get up. She was brought to the hospital January 28. Her white
count was 17.5. Abdominal ultrasound showed distended gallbladder and common bile duct. She was started on vancomycin and Zosyn. The admission blood cultures are positive for Streptococcus species. Yesterday she underwent MRI of the abdomen which
showed increase in biliary dilatation and gallbladder dilatation as well as mild pancreatic ductal dilation as compared to recent January 22, 2024 MRI of the abdomen. Also there are was a change noted around the previous bilateral posterior
instrumentation at L4/L5 now with fluid signal in the intervertebral disc and adjacent bone marrow signal intensity changes in the superior endplate of L5 which raises the possibility of infectious discitis. Per sister at bedside, patient remains
confused and not back to baseline. Patient reports the epigastric pain is somewhat improved. However she still has 10 out of 10 low back pain that radiates to her right thigh. She has stopped drinking alcohol since November. Paracentesis in
November and January 07 were negative for infection.
Past History
Additional Past Medical History:
alcohol abuse
cirrhosis
Ascites
seizures
GERD
Hx hep C-treated in past
chronic low back pain/spinal stenosis on chronic opiates
depression/anxiety
OA
RA
Acne on chronic doxycycline
nicotine abuse
former IVDA
L4/L5 surgery with hardware
bilateral wrist fracture repair
B/L foot fx repair
Allergy History:
carisoprodol [From Soma] Allergy (Verified 01/29/24 14:15)
Unknown
duloxetine [From Cymbalta] Allergy (Verified 01/29/24 14:15)
patient no aware of an allergy to this medication
mold Allergy (Verified 01/29/24 14:15)
sneezing, coughing, headaches
pollen extracts Allergy (Verified 01/29/24 14:15)
sneezing,headaches
pseudoephedrine HCl [From Sudafed] Allergy (Verified 01/29/24 14:15)
heart races, tingling
DUST Allergy (Uncoded 01/29/24 14:15)
sneezing, headaches
Medications Reviewed: Yes
Current Antibiotics:
Vancomycin
Zosyn
Social History
Tobacco: Smoker (10/27 ppd)
Alcohol: Former (Quit 11/2023)
Drug: Former User (40 years ago)
Living: Alone
Family History
Family History: Not Pertinent
Review of Systems
Review of Systems
General: Negative Fever, Chills or Change in Appetite (Hungry)
HEENT: Negative Sinus Problems, Headache or Pharyngitis
Respiratory: Negative Dyspnea or Cough
Gasteroenterology: Other (no diarrhea); Negative Nausea or Vomiting
Genital / Urological: Negative Dysuria
Endocrine: Weakness
Skin / Hair / Nails: Negative Rash
Neurological: Negative Headache or Dizziness
All systems: All other systems were reviewed and were negative
Vital Signs
Temp Pulse Resp BP Pulse Ox
97.8 F 75 18 110/66 88
01/31/24 11:56 01/31/24 11:56 01/31/24 11:56 01/31/24 11:56 01/31/24 11:56
Physical Exam
Physical Exam
Constitutional: Acutely Ill
Eyes: No Conjunctival Hemorrhage and Sclera Anicteric
Oral: Other (Dry mucous membrane)
Cardiovascular: Regular Rate and S1/S2
Pulmonary: Clear and Other
Gastrointestinal: Soft, Tender (epigastric to RUQ), Distended and Normal Bowel Sounds
Extremities: Negative Edema or Erythema
Musculoskeletal: Spinal Tenderness (lumbar)
Neurological: Awake and Tremors (Hand)
Psychological: Confused and Other (5/5 strength with bilateral foot flexion and extension. Active flex left knee, weaker on right knee.)
Lab / Diagnostic Study Results
01/31/24 07:09
01/31/24 07:09
Abs Immat Gran (auto) 0.1 10^3/uL (0-0.05) H 01/31/24 07:09
Absolute Neuts (auto) 7.7 10^3/uL (1.4-6.5) H 01/31/24 07:09
Absolute Lymphs (auto) 0.9 10^3/uL (1.2-3.4) L 01/31/24 07:09
Absolute Monos (auto) 1.0 10^3/uL (0.1-0.6) H 01/31/24 07:09
Absolute Basos (auto) 0.1 10^3/uL (0-0.2) 01/31/24 07:09
Immature Gran % 0.5 % (0-0.5) 01/31/24 07:09
Neutrophils % 79.4 % (42.2-75.2) H 01/31/24 07:09
Lymphocytes % 9.3 % (20.5-51.1) L 01/31/24 07:09
Monocytes % 10.1 % (1.7-9.3) H 01/31/24 07:09
Eosinophils % 0.2 % (0-6) 01/31/24 07:09
Basophils % 0.5 % (0-2) 01/31/24 07:09
PT 21.3 Sec (11.4-14.6) H 01/29/24 21:29
INR 1.87 01/29/24 21:29
Lactic Acid 1.4 mmol/L (0.7-2.0) 01/29/24 21:39
Microbiology Results
Micro:
01/30/24 04:58 MRSA Screen - Final
Nose No Methicillin Resistant Staphylococcus aureus isolated.
01/30/24 10:14 Blood Culture - Preliminary
Blood/Venous No Growth in 24 hours- Final report to follow
01/30/24 09:47 Blood Culture - Preliminary
Blood/Venous No Growth in 24 hours- Final report to follow
01/29/24 18:12 Blood Culture - Preliminary
Blood/Venous Streptococcus species
Gram Stain - Preliminary
01/29/24 16:45 Blood Culture - Preliminary
Blood/Venous Positive culture in progress
Gram Stain - Preliminary
01/30/24 MRI abdomen: Moderate biliary dilatation, moderate gallbladder dilatation, and mild pancreatic ductal dilatation which appears increased from 01/22/2024 raising the possibility of an obstructing stricture at the ampulla. Previous bilateral
posterior instrumentation at L4/L5 with fluid signal in the intervertebral disc and adjacent bone marrow signal intensity changes in the superior endplate of L5 which appears new and raises the possibility of acute infectious discitis if there are
signs/symptoms of infection. Degenerative disease is an alternative diagnostic possibility.
01/29/24 ABD US: Small volume of upper abdominal ascites.MODERATE HEPATIC CIRRHOSIS. Moderate splenomegaly secondary to portal hypertension. Distended gallbladder and common bile duct.
Assessment / Plan
# Streptococcal bacteremia (2 sets 1 hour apart)
# Probable biliary sepsis
# Suspect L4/L5 discitis, HW infection with sxs acute on chronic back pain
# Cirrhosis with hepatic decompensation.
# Hepatic encephalopathy
# Alcohol abuse
- Repeat bcx's negative.
- For ERCP.
- Check CRP
- Narrow Vanco/Zosyn to Unasyn for now.
Anticipate long course of abx.
[2024-01-31] MEDS: KCL 40 MEQ PO (14:33)
[2024-01-31 15:10] VITALS: BP 107/53
[2024-01-31] MEDS: DUPHALAC/CHRONULAC 20 GRAMS PO ×2 (16:04→21:13)
[2024-01-31] MEDS: LOVENOX 40 MG SC (18:06)
[2024-01-31] MEDS: UNASYN IV ×2 (18:07→23:16)
[2024-01-31] MEDS: SEROQUEL 200 MG PO (23:11)
[2024-01-31] MEDS: ZOLOFT 200 MG PO (23:11)
[2024-01-31 23:42] VITALS: BP 116/64
[2024-02-01 06:00] VITALS: BMI 27.3
[2024-02-01] MEDS: UNASYN IV ×3 (06:00→18:04)
[2024-02-01 06:01] LABS: % Basophils 0.7 % (0-2); % Eosinophils 0.7 % (0-6); % Immature Granulocytes 0.3 % (0-0.5); % Lymphocytes 10.7 % (20.5-51.1); % Monocytes 11.8 % (1.7-9.3); % Neutrophils 75.8 % (42.2-75.2); Absolute Basophils 0.1 10^3/uL (0-0.2); Absolute Eosinophils 0.1 10^3/uL (0-0.7); Absolute Lymphocytes 0.8 10^3/uL (1.2-3.4); Absolute Monocytes 0.9 10^3/uL (0.1-0.6); Absolute Neutrophils 5.7 10^3/uL (1.4-6.5); Hematocrit 28.4 % (37.0-47.0); Hemoglobin 9.2 g/dL (12.0-16.0); Mean Corp Hgb Conc. 32.4 g/dL (33.0-37.0); Mean Corpuscular Hgb 30.4 pg (27.0-31.0); Mean Corpuscular Volume 93.7 fL (81.0-99.0); Mean Platelet Volume 10.3 fL (7.4-10.4); Nucleated Red Blood Cells % 0 %; Platelet Count 114 10^3/uL (130-400); Red Blood Cell Count 3.03 10^6/uL (4.20-5.40); Red Cell Dist. Width 13.8 % (11.5-14.5); White Blood Cell Count 7.5 10^3/uL (4.8-10.8)
[2024-02-01 06:10] LABS: INR 1.51
[2024-02-01 06:24] LABS: ALT (SGPT) 24 U/L (0-35); AST (SGOT) 81 U/L (14-36); Albumin 2.9 g/dl (3.5-5.0); Alkaline Phosphatase 79 U/L (38-126); Blood Urea Nitrogen 10 mg/dl (7-17); Calcium 8.6 mg/dl (8.4-10.2); Carbon Dioxide 26 mmol/L (22-30); Chloride 104 mmol/L (98-107); Estimated Creatinine Clearance 80 ml/min; Glucose 108 mg/dl (70-99); Potassium 3.7 mmol/L (3.5-5.1); Sodium 137 mmol/L (135-145); Total Bilirubin 1.2 mg/dl (0.2-1.3); Total Protein 7.3 g/dl (6.3-8.2); eGFR > 60.00
--- NOTE | 2024-02-01 06:47 | W.PN.GI.CBS2 ---
Today's Communication / Plan
-
See assessment and plan for details.
Assessment / Plan
-
1. Right upper quadrant pain: With mild CBD dilation, though LFTs only very minimally elevated, with strep species bacteremia, less likely to be cholangitis given LFTs. This dilation is new, however, and does also have some pancreatic duct
dilation which is new. Her leukocytosis has improved, afebrile overnight. There is minimal ascites on CT without any other new pathology, doubt SBP. Her pain is much improved, no significant tenderness now, possibly more related to constipation
given improvement after defecation. Given her new duct dilation along with pancreatic duct dilation, however, would plan EUS +/- ERCP, possibly tomorrow, will discuss with Dr. Conklin.
2. Cirrhosis: secondary to alcohol primarily, with previous hepatitis C status posttreatment in the , decompensated with ascites and edema, only small volume ascites now on imaging, less likely SBP with focal pain, previous paracentesis
negative, no appreciable ascites now. Her mild confusion was likely secondary to bacteremia, now no further confusion, doubt hepatic encephalopathy.
3. Bacteremia: Strep species, unclear source, await CT scan, identification, continue antibiotics. While biliary source is possible given her duct dilation, her LFTs have been essentially normal making this a bit less likely. Her pain is
resolved, possibly passed CBD stone, though no stones were ever seen on any previous imaging. She does have severe discitis and worsening back pain into her leg, also possible source of infection, ID following.
Subjective
Subjective
Date of Service: February 01, 2024
Patient feeling better overall, much less abdominal pain, though still severe back pain into her leg, no fevers, is alert and oriented without any confusion. She tolerated diet without difficulty. She did have large bowel movement yesterday per
nursing.
Objective
Data Reviewed
Laboratory Data:
Laboratory Results
02/01/24 05:36
02/01/24 05:36
Laboratory Results
PT 18.0 Sec (11.4-14.6) H 02/01/24 05:36
INR 1.51 02/01/24 05:36
Magnesium 1.4 mg/dl (1.6-2.3) L 01/29/24 16:45
Total Bilirubin 1.2 mg/dl (0.2-1.3) 02/01/24 05:36
AST 81 U/L (14-36) H 02/01/24 05:36
ALT 24 U/L (0-35) 02/01/24 05:36
Alkaline Phosphatase 79 U/L (38-126) 02/01/24 05:36
Lipase 31 U/L (23-300) 01/29/24 16:45
Vital Signs and I&O:
Vital Signs
Temp Pulse Resp BP Pulse Ox
99.2 F 89 18 116/64 92
01/31/24 23:42 01/31/24 23:42 01/31/24 23:42 01/31/24 23:42 01/31/24 23:42
I&O
01/30/24 01/31/24 02/01/24
06:59 06:59 06:59
Intake Total 980 / 980 2089 / 2089
Output Total 780 / 780 700 / 700 1680 / 1680
Balance -780 / -780 280 / 280 410 / 410
Physical Exam
Physical Exam
General: NAD, alert and orient x 3
Abdomen: normal bowel sounds, soft, much improved right upper quadrant tenderness, no masses or bruits, no appreciable ascites
--- NOTE | 2024-02-01 07:35 | PTCARENOTE ---
Addendum entered by Melissa Lucio RN 02/01/24 07:38:
Pt refuses seizures pads to be placed on bed.
Original Note:
Pt aaox3 forgetful at times. Pt had 2 large BM over night. PT very unsteady when OOB, with 2 person assist to Bedside commode. Bed alarm in place. Pt voided in Bedside commode at times.Call bryant in reach.
[2024-02-01] MEDS: PROTONIX 40 MG PO (08:19)
[2024-02-01] MEDS: LYRICA 300 MG PO (08:19)
[2024-02-01] MEDS: PLAQUENIL 200 MG PO ×2 (08:19→20:41)
[2024-02-01] MEDS: LASIX 20 MG PO (08:19)
[2024-02-01] MEDS: DILANTIN 100 MG PO ×2 (08:19→20:41)
[2024-02-01] MEDS: OSCAL CAL 500 500 MG PO (08:19)
[2024-02-01] MEDS: ROXICODONE 30 MG PO ×2 (08:19→18:05)
[2024-02-01] MEDS: DUPHALAC/CHRONULAC PO ×3 (08:20→20:42)
[2024-02-01 08:23] VITALS: BP 111/75
--- NOTE | 2024-02-01 09:54 | PTCARENOTE ---
pt aaox3. anxious forgetful at times. pt states pain in left sciatic lower back. pain med given as ordered with little relief. MD made aware. new orders placed. breath sounds diminished at base clear thru out. pt refusing lactulose both RN and
MD educated pt on need for medication. will try again later.
[2024-02-01] MEDS: XANAX 1.5 MG PO ×2 (10:05→22:02)
[2024-02-01] MEDS: LIDOCAINE 4% PATCH 1 PATCH TOPICAL (10:22)
[2024-02-01 10:49] LABS: CEA 6.49 ng/ml
--- NOTE | 2024-02-01 12:54 | CM ---
Patient seen bedside, initial assessment completed. Patient reports she lives alone in a two story home, ramp to enter home. Patient reports she lives alone as she just went through a divorce. Patient reports she has a cane at home. Patient denies
VN, reports she has been to rehab in the past, unsure where. Patient confirms PCP Dr. Burton Newman, pharmacy [facility] in [place]. CM discussed PT recommendation of SNF, patient agreeable to local referrals to be sent. CM will continue to follow for
discharge planning needs.
Plan; SNF pending accepting facility, will require auth.
[2024-02-01] MEDS: DILAUDID 0.25 MG IV (12:58)
--- NOTE | 2024-02-01 13:13 | W.PN.HOSP.TC ---
Today's Communication/Plan
-
Monitor vital signs see plan
Continue with antibiotics
lidocaine patch
EUS per GI
follow bcx
Assessment / Plan
Assessment / Plan
Physical Exam
General: No pallor, cyanosis, or jaundice.
HEENT: Throat clear. PERRLA Normocephalic atraumatic
NECK: Supple. No JVD Carotid Bruits
RESPIRATORY: Lungs clear to auscultation. No crackles wheezes stridor
CVS: S1, S2 normal. RRR. No murmur, rub or gallop.
ABDOMEN: Soft, distended tender. decreased bowel sounds
EXTREMITIES: No peripheral cyanosis or edema.
SENIOR SITE MANAGER: AOx3, some confusion forgetfullness noted asterixis
58y F with PMH significant for Hep C s/p treatment, alcohol abuse and cirrhosis who presents to ED complaining of abdominal pain epigastric and RUQ areas
#Abdominal pain with CBD dilatation/leukocytosis
#Streptococcal bacteremia
#possible Infectious discitis
Abd US noted moderate hepatic cirrhosis, small volume ascities, moderate splenomegaly 2/2 portal hyn, distended gallbladder and CBD duct
Urine drug screen positive opiates, oxycodone, benzos, barbiturates, tricyclic's
Lactic acid 2.1 resolved
Blood cultures positive for strep species, blood cultures repeated NGTD
ID following, continue antibiotics per ID
pain control; lidocaine patch for back
MRI/MRCP appreciated
-mod biliary gallbladder dilatation, mild pancreactic ductal dilatation, possible obstructing stricture ampulla
-moderate hepatic cirrhosis
-Portal htn w/ mod to severe splenomegaly
-small ascites
-previous instrumentation L4/L5 possible acute infectious discitis
-lower lobes possible atelectasis vs pna (incentive spirometer ordered)
Plan for EUS +/- ERCP per GI
CT abd/pelvis findings consistent with MRI
surgery eval appreciated Checking CA 19-9, CEA, CA125, no surgical intervention recommended at this time.
#Chronic mild memory impairment-Per daughter ongoing since November [address] head: No evidence of acute intracranial hemorrhage or transcortical infarct. Mild diffuse cerebral and cerebellar volume loss
#Hypokalemia
Improved
#History of cirrhosis
#Hep C-treated
#Hepatic encephalopathy confusion forgetfulness, asterixis
#Portal HTN
-Paracentesis x 2 November and mid December 2023
-Hold spironolactone 100 mg daily soft pressures
-continue Lasix 20 mg daily
-started lactulose 01/30, continue
#Chronic thrombocytopenia 2/2 cirrhosis
platelets stable
monitor
#Chronic anemia
H&H stable
monitor
#GERD
-Continue Prilosec, calcium carbonate
#Former alcohol abuse-stopped end of November 2023
#Drinks on weekends according to daughter
-Alcohol level negative Tylenol salicylate negative
#Rheumatoid arthritis/OA with chronic wrist deformities
#Chronic pain on chronic oral opiates
-hydroxychloroquine 200 mg twice daily
-Oxycodone 30 mg 4 times daily prn
-Patient on Fosamax monthly
#Seizure disorder
No seizure over 20 years
-Continue phenytoin 100 mg twice daily, Lyrica 300 mg daily
#Anxiety
-Patient on Xanax 2 mg 3 times daily switched to prn, reduced to 1.5 mg TIDPRN d/t concerns confusion cognitive memory issues.
#Depression
-Continue Zoloft 100 mg at bedtime, Seroquel 200 mg at bedtime
PT/OT SNF rehab
DVT prophylaxis Subcu Lovenox
Full code
I spent a total of 53 minutes with the patient or on the floor. More than 50% of this time involved counseling and coordination of care.
Anticipated Discharge: > 48 hours
Subjective/Interval History
-
Date of Service: February 01, 2024
has some pain
Objective Data
-
Labs:
Laboratory Results
02/01/24
05:36
WBC 7.5
Hgb 9.2 L
Hct 28.4 L
Plt Count 114 L
PT 18.0 H
INR 1.51
Sodium 137
Potassium 3.7
Chloride 104
Carbon Dioxide 26
BUN 10
Creatinine 0.7
Glucose 108 H
Calcium 8.6
Total Bilirubin 1.2
AST 81 H
ALT 24
Alkaline Phosphatase 79
Vital Signs:
Vital Signs
Temp Pulse Resp BP Pulse Ox
98.1 F 85 18 111/75 96
02/01/24 08:23 02/01/24 08:23 02/01/24 08:23 02/01/24 08:23 02/01/24 08:23
I&O
01/31/24 02/01/24 02/02/24
06:59 06:59 06:59
Intake Total 980 / 980 2089 / 2089
Output Total 700 / 700 1680 / 1680
Balance 280 / 280 410 / 410
--- NOTE | 2024-02-01 13:22 | W.PN.ID1 ---
Date of Service
Date of Service: February 01, 2024
Today's Communication
See below.
Assessment / Plan
# Streptococcal bovis bacteremia (2 sets 1 hour apart)
# Suspect L4/L5 discitis, HW infection with sxs acute on chronic back pain
# Bile duct and pancreatic duct dilation
# Cirrhosis with hepatic decompensation.
# Hepatic encephalopathy
# Alcohol abuse
- Repeat bcx's negative.
- For ERCP/EUS tomorrow
- CRP elevated
- Ordered TTE due to S. bovis bacteremia
- Pt never had colonoscopy.
Eventually need colonoscopy to eval for colon neoplasm
- Continue Unasyn for now.
Anticipate long course of abx.
%Additional Past Medical History:
alcohol abuse
cirrhosis
Ascites
seizures
GERD
Hx hep C-treated in past
chronic low back pain/spinal stenosis on chronic opiates
depression/anxiety
OA
RA
Acne on chronic doxycycline
nicotine abuse
former IVDA
L4/L5 surgery with hardware
bilateral wrist fracture repair
B/L foot fx repair
Chief Complaint
-: Bacteremia
Subjective / Review of Systems
c/o low right low back pain
Vital Signs / Physical Exam
Vital Signs
Vital Signs
Temp Pulse Resp BP Pulse Ox
98.1 F 85 18 111/75 96
02/01/24 08:23 02/01/24 08:23 02/01/24 08:23 02/01/24 08:23 02/01/24 08:23
Physical Exam
Constitutional: Non-toxic
Eyes: No Conjunctival Hemorrhage and Sclera Anicteric
Cardiovascular: Regular Rate and S1/S2
Pulmonary: Clear
Gastrointestinal: Soft, Tender (epigastric), Distended and Normal Bowel Sounds
Extremities: Negative Edema
Neurological: AO x 3 and Other (Able to move BLE)
Objective Data
Lab Data
Lab Results
02/01/24 05:36
02/01/24 05:36
PT 18.0 Sec (11.4-14.6) H 02/01/24 05:36
INR 1.51 02/01/24 05:36
Estimated Creat Clear 80 ml/min 02/01/24 05:36
Lactic Acid 1.4 mmol/L (0.7-2.0) 01/29/24 21:39
Total Bilirubin 1.2 mg/dl (0.2-1.3) 02/01/24 05:36
AST 81 U/L (14-36) H 02/01/24 05:36
ALT 24 U/L (0-35) 02/01/24 05:36
Alkaline Phosphatase 79 U/L (38-126) 02/01/24 05:36
C-Reactive Protein 63.10 mg/L (0.0-10.00) H 01/31/24 07:09
Most recent labs reviewed.
Micro Results:
01/29/24 18:12 Blood Culture - Final
Blood/Venous Streptococcus bovis
Gram Stain - Final
01/29/24 16:45 Blood Culture - Final
Blood/Venous Streptococcus bovis
Gram Stain - Final
01/30/24 10:14 Blood Culture - Preliminary
Blood/Venous No Growth in 48 hours- Final report to follow
01/30/24 09:47 Blood Culture - Preliminary
Blood/Venous No Growth in 48 hours- Final report to follow
01/30/24 04:58 MRSA Screen - Final
Nose No Methicillin Resistant Staphylococcus aureus isolated.
01/30/24 MRI abdomen: Moderate biliary dilatation, moderate gallbladder dilatation, and mild pancreatic ductal dilatation which appears increased from 01/22/2024 raising the possibility of an obstructing stricture at the ampulla. Previous bilateral
posterior instrumentation at L4/L5 with fluid signal in the intervertebral disc and adjacent bone marrow signal intensity changes in the superior endplate of L5 which appears new and raises the possibility of acute infectious discitis if there are
signs/symptoms of infection. Degenerative disease is an alternative diagnostic possibility.
01/29/24 ABD US: Small volume of upper abdominal ascites.MODERATE HEPATIC CIRRHOSIS. Moderate splenomegaly secondary to portal hypertension. Distended gallbladder and common bile duct.
Care Review
Plan reviewed with: Physician (Dr. Hercules)
[2024-02-01 15:00] VITALS: BP 109/62
[2024-02-01] MEDS: LOVENOX 40 MG SC (18:05)
[2024-02-01 18:50] LABS: CA 125 155 U/mL (0-35)
[2024-02-01] MEDS: ZOLOFT 200 MG PO (20:37)
[2024-02-01] MEDS: SEROQUEL 200 MG PO (20:42)
[2024-02-01 23:56] VITALS: BP 113/57
[2024-02-02] VITALS (13 sets, daily range): BP systolic 93–111; BP diastolic 44–74; PULSE 79; BMI 25.7
[2024-02-02] MEDS: UNASYN IV ×4 (00:44→18:27)
[2024-02-02] MEDS: ROXICODONE 30 MG PO ×3 (02:08→18:33)
[2024-02-02 06:04] LABS: % Basophils 0.6 % (0-2); % Immature Granulocytes 0.4 % (0-0.5); % Lymphocytes 12.7 % (20.5-51.1); % Monocytes 11.7 % (1.7-9.3); % Neutrophils 73.6 % (42.2-75.2); Absolute Eosinophils 0.1 10^3/uL (0-0.7); Absolute Lymphocytes 0.9 10^3/uL (1.2-3.4); Absolute Monocytes 0.8 10^3/uL (0.1-0.6); Absolute Neutrophils 5.2 10^3/uL (1.4-6.5); Hematocrit 26.7 % (37.0-47.0); Mean Corp Hgb Conc. 33.7 g/dL (33.0-37.0); Mean Corpuscular Hgb 31.3 pg (27.0-31.0); Mean Corpuscular Volume 92.7 fL (81.0-99.0); Mean Platelet Volume 10.2 fL (7.4-10.4); Nucleated Red Blood Cells % 0 %; Platelet Count 112 10^3/uL (130-400); Red Blood Cell Count 2.88 10^6/uL (4.20-5.40); Red Cell Dist. Width 13.5 % (11.5-14.5)
[2024-02-02 06:34] LABS: ALT (SGPT) 21 U/L (0-35); AST (SGOT) 60 U/L (14-36); Albumin 2.7 g/dl (3.5-5.0); Alkaline Phosphatase 78 U/L (38-126); Blood Urea Nitrogen 10 mg/dl (7-17); Calcium 8.7 mg/dl (8.4-10.2); Carbon Dioxide 27 mmol/L (22-30); Chloride 102 mmol/L (98-107); Estimated Creatinine Clearance 93 ml/min; Glucose 104 mg/dl (70-99); Potassium 3.6 mmol/L (3.5-5.1); Sodium 134 mmol/L (135-145); Total Bilirubin 1.1 mg/dl (0.2-1.3); Total Protein 7.1 g/dl (6.3-8.2); eGFR > 60.00
[2024-02-02] MEDS: LIDOCAINE 4% PATCH 1 PATCH TOPICAL (08:53)
[2024-02-02] MEDS: DUPHALAC/CHRONULAC PO ×2 (08:54→17:06)
[2024-02-02] MEDS: LASIX 20 MG PO (08:54)
[2024-02-02] MEDS: PROTONIX 40 MG PO (08:54)
[2024-02-02] MEDS: LYRICA 300 MG PO (08:54)
[2024-02-02] MEDS: OSCAL CAL 500 500 MG PO (08:55)
[2024-02-02] MEDS: PLAQUENIL 200 MG PO ×2 (08:55→20:35)
[2024-02-02] MEDS: DILANTIN 100 MG PO ×2 (08:55→20:35)
[2024-02-02 11:00] LABS: CA 19-9 15 U/mL (<=35)
--- NOTE | 2024-02-02 11:25 | W.PN.HOSP.TC ---
Today's Communication/Plan
-
Monitor vital signs and see plan
Pain control
EUS today
Given strep bovis would need colonoscopy, per patient never had colonoscopy before
Continue with antibiotic
PT/OT
Assessment / Plan
Assessment / Plan
Physical Exam
General: No pallor, cyanosis, or jaundice.
HEENT: Throat clear. PERRLA Normocephalic atraumatic
NECK: Supple. No JVD Carotid Bruits
RESPIRATORY: Lungs clear to auscultation. No crackles wheezes stridor
CVS: S1, S2 normal. RRR. No murmur, rub or gallop.
ABDOMEN: Soft, distended tender. decreased bowel sounds
EXTREMITIES: No peripheral cyanosis or edema.
BOW STAPLER: AOx3, some confusion forgetfullness noted asterixis
58y F with PMH significant for Hep C s/p treatment, alcohol abuse and cirrhosis who presents to ED complaining of abdominal pain epigastric and RUQ areas
#Abdominal pain with CBD dilatation/leukocytosis
#Streptococcal bovis bacteremia
#possible Infectious discitis
Abd US noted moderate hepatic cirrhosis, small volume ascities, moderate splenomegaly 2/2 portal hyn, distended gallbladder and CBD duct
Urine drug screen positive opiates, oxycodone, benzos, barbiturates, tricyclic's
Lactic acid 2.1 resolved
Blood cultures positive for strep species, blood cultures repeated NGTD
ID following, continue antibiotics per ID
pain control; lidocaine patch for back
Never had colonoscopy, given strep bovis recommend colonoscopy. GI following
MRI/MRCP appreciated
-mod biliary gallbladder dilatation, mild pancreactic ductal dilatation, possible obstructing stricture ampulla
-moderate hepatic cirrhosis
-Portal htn w/ mod to severe splenomegaly
-small ascites
-previous instrumentation L4/L5 possible acute infectious discitis
-lower lobes possible atelectasis vs pna (incentive spirometer ordered)
Plan for EUS +/- ERCP per GI 02/[address]
CT abd/pelvis findings consistent with MRI
surgery eval appreciated; CA125 high, no surgical intervention recommended at this time.
#Chronic mild memory impairment-Per daughter ongoing since November [address] head: No evidence of acute intracranial hemorrhage or transcortical infarct. Mild diffuse cerebral and cerebellar volume loss
#Hypokalemia
Improved
#History of cirrhosis
#Hep C-treated
#Hepatic encephalopathy confusion forgetfulness, asterixis
#Portal HTN
-Paracentesis x 2 November and mid December 2023
-Hold spironolactone 100 mg daily soft pressures
-continue Lasix 20 mg daily
-started lactulose 01/30, continue
#Chronic thrombocytopenia 2/2 cirrhosis
platelets stable
monitor
#Chronic anemia
H&H stable
monitor
#GERD
-Continue Prilosec, calcium carbonate
#Former alcohol abuse-stopped end of November 2023
#Drinks on weekends according to daughter
-Alcohol level negative Tylenol salicylate negative
#Rheumatoid arthritis/OA with chronic wrist deformities
#Chronic pain on chronic oral opiates
-hydroxychloroquine 200 mg twice daily
-Oxycodone 30 mg 4 times daily prn
-Patient on Fosamax monthly
#Seizure disorder
No seizure over 20 years
-Continue phenytoin 100 mg twice daily, Lyrica 300 mg daily
#Anxiety
-Patient on Xanax 2 mg 3 times daily switched to prn, reduced to 1.5 mg TIDPRN d/t concerns confusion cognitive memory issues.
#Depression
-Continue Zoloft 100 mg at bedtime, Seroquel 200 mg at bedtime
PT/OT SNF rehab
DVT prophylaxis Subcu Lovenox
Full code
Anticipated Discharge: > 48 hours
Subjective/Interval History
-
Date of Service: February 02, 2024
denies pain
Objective Data
-
Labs:
Laboratory Results
02/02/24
05:27
WBC 7.0
Hgb 9.0 L
Hct 26.7 L
Plt Count 112 L
Sodium 134 L
Potassium 3.6
Chloride 102
Carbon Dioxide 27
BUN 10
Creatinine 0.6
Glucose 104 H
Calcium 8.7
Total Bilirubin 1.1
AST 60 H
ALT 21
Alkaline Phosphatase 78
Vital Signs:
Vital Signs
Temp Pulse Resp BP Pulse Ox
98.7 F 77 18 109/67 94
02/02/24 07:00 02/02/24 08:54 02/02/24 07:00 02/02/24 08:54 02/02/24 08:44
I&O
02/01/24 02/02/24 02/03/24
06:59 06:59 06:59
Intake Total 2089 1440 / 1440
Output Total 0 / 1680
Balance 410 / 410 1440 / 1440
--- NOTE | 2024-02-02 11:36 | CM ---
CM sent referrals to several local SNF's, once facility accepted, patient will require authorization. Patient remains on IV antibiotics. CM will continue to follow for discharge planning needs.
Plan; SNF pending accepting facility, will require authorization.
[2024-02-02] MEDS: DILAUDID 0.25 MG IV (11:54)
[2024-02-02] MEDS: FLUSH (NSS) 1 FLUSH IV ×2 (11:56→18:27)
--- NOTE | 2024-02-02 12:48 | W.PN.ID1 ---
Date of Service
Date of Service: February 02, 2024
Today's Communication
Continue Unasyn
Assessment / Plan
# Streptococcal bovis bacteremia (2 sets 1 hour apart)
# Suspect L4/L5 discitis, HW infection with sxs acute on chronic back pain
# Bile duct and pancreatic duct dilation
# Cirrhosis with hepatic decompensation.
# Hepatic encephalopathy
# Alcohol abuse
- Repeat bcx's negative.
- For ERCP/EUS today
- CRP elevated
-TTE no gross vegetation
- Pt never had colonoscopy.
Eventually need colonoscopy to eval for colon neoplasm
- Continue Unasyn (d5 abx) for now pending ERCP finding.
Anticipate 6 weeks of ceftriaxone for L4/L5 discitis.
%Additional Past Medical History:
alcohol abuse
cirrhosis
Ascites
seizures
GERD
Hx hep C-treated in past
chronic low back pain/spinal stenosis on chronic opiates
depression/anxiety
OA
RA
Acne on chronic doxycycline
nicotine abuse
former IVDA
L4/L5 surgery with hardware
bilateral wrist fracture repair
B/L foot fx repair
Chief Complaint
-: Bacteremia
Subjective / Review of Systems
c/o severe back pain
Vital Signs / Physical Exam
Vital Signs
Vital Signs
Temp Pulse Resp BP Pulse Ox
98.7 F 77 18 109/67 94
02/02/24 07:00 02/02/24 08:54 02/02/24 07:00 02/02/24 08:54 02/02/24 08:44
Physical Exam
Constitutional: No Acute Distress
Eyes: Sclera Anicteric
Gastrointestinal: Soft and Tender (epigastrum)
Extremities: Negative Edema
Objective Data
Lab Data
Lab Results
02/02/24 05:27
02/02/24 05:27
PT 18.0 Sec (11.4-14.6) H 02/01/24 05:36
INR 1.51 02/01/24 05:36
Estimated Creat Clear 93 ml/min 02/02/24 05:27
Lactic Acid 1.4 mmol/L (0.7-2.0) 01/29/24 21:39
Total Bilirubin 1.1 mg/dl (0.2-1.3) 02/02/24 05:27
AST 60 U/L (14-36) H 02/02/24 05:27
ALT 21 U/L (0-35) 02/02/24 05:27
Alkaline Phosphatase 78 U/L (38-126) 02/02/24 05:27
C-Reactive Protein 63.10 mg/L (0.0-10.00) H 01/31/24 07:09
Most recent labs reviewed.
Micro Results:
01/30/24 10:14 Blood Culture - Preliminary
Blood/Venous No Growth in 72 hours- Final report to follow
01/30/24 09:47 Blood Culture - Preliminary
Blood/Venous No Growth in 72 hours- Final report to follow
01/29/24 18:12 Blood Culture - Final
Blood/Venous Streptococcus bovis
Gram Stain - Final
01/29/24 16:45 Blood Culture - Final
Blood/Venous Streptococcus bovis
Gram Stain - Final
01/30/24 04:58 MRSA Screen - Final
Nose No Methicillin Resistant Staphylococcus aureus isolated.
01/30/24 MRI abdomen: Moderate biliary dilatation, moderate gallbladder dilatation, and mild pancreatic ductal dilatation which appears increased from 01/22/2024 raising the possibility of an obstructing stricture at the ampulla. Previous bilateral
posterior instrumentation at L4/L5 with fluid signal in the intervertebral disc and adjacent bone marrow signal intensity changes in the superior endplate of L5 which appears new and raises the possibility of acute infectious discitis if there are
signs/symptoms of infection. Degenerative disease is an alternative diagnostic possibility.
01/29/24 ABD US: Small volume of upper abdominal ascites.MODERATE HEPATIC CIRRHOSIS. Moderate splenomegaly secondary to portal hypertension. Distended gallbladder and common bile duct.
[2024-02-02] MEDS: XANAX 1.5 MG PO ×2 (13:18→20:50)
--- NOTE | 2024-02-02 15:51 | PTCARENOTE ---
Pt AAO x3, anxious at times; has (+) hand tremors. MACEDO, able to position self in bed, pt able to transfer to BSC with assist x1; c/o low back/Rt upper leg pain with any OOb activity; refused offer of OOB to chair. Pt frequently requests prn pain
meds; reports minimal effect from IV Dilaudud/PO Roxicodone.VSS. On room air- pulse ox 97%, no SOB noted. Abd large, (+) ascites; NPO for shift for EUS; refusing lactulose- 'I don't want to explode when I'm down there'. Voiding mod amts clear
fili urine on BSC. Resting in bed at present. Will continue to monitor.
[2024-02-02] MEDS: LOVENOX 40 MG SC (18:26)
--- NOTE | 2024-02-02 18:39 | PTCARENOTE ---
Pt returned from PACU s/p EUS/ERCP via stretcher, accompanied by James COMER. Pt AAO x3, MACEDO; transferred to bed with assist x2; pt unsteady with OOb activity. VSS. On room air- pulse ox 96%, no c/o SOB; lungs clear. Abd large, soft, BS (+), loud,
to start clear liquid diet. Afebrile, W/D/I. resting in bed at present; will continue to monitor.
[2024-02-02] MEDS: ZOLOFT 200 MG PO (20:35)
[2024-02-02] MEDS: SEROQUEL 200 MG PO (20:35)
[2024-02-02] MEDS: DUPHALAC/CHRONULAC 20 GRAMS PO (20:35)
[2024-02-03] MEDS: UNASYN IV ×2 (00:05→06:06)
[2024-02-03] MEDS: ROXICODONE 30 MG PO ×4 (00:08→20:33)
[2024-02-03] MEDS: DILAUDID 0.25 MG IV ×2 (03:29→09:53)
--- NOTE | 2024-02-03 03:35 | PTCARENOTE ---
Pt continuously asking for medication. This RN explained to pt that she received her scheduled medication earlier in the shift and that she received her PRN oxy around midnight and that it is too early for another dose. Pt acknowledged this and
asked for her PRN Dilaudid. This RN promptly gave the medication. Will continue to monitor.
[2024-02-03 06:00] VITALS: BMI 25.7
[2024-02-03] MEDS: XANAX 1.5 MG PO ×3 (06:15→21:41)
[2024-02-03 07:35] VITALS: BP 111/62
[2024-02-03 08:20] LABS: % Basophils 0.4 % (0-2); % Eosinophils 1.9 % (0-6); % Immature Granulocytes 0.3 % (0-0.5); % Lymphocytes 13.3 % (20.5-51.1); % Monocytes 11.4 % (1.7-9.3); % Neutrophils 72.7 % (42.2-75.2); Absolute Eosinophils 0.1 10^3/uL (0-0.7); Absolute Lymphocytes 0.9 10^3/uL (1.2-3.4); Absolute Monocytes 0.8 10^3/uL (0.1-0.6); Hematocrit 26.5 % (37.0-47.0); Hemoglobin 8.5 g/dL (12.0-16.0); Mean Corp Hgb Conc. 32.1 g/dL (33.0-37.0); Mean Corpuscular Hgb 29.9 pg (27.0-31.0); Mean Corpuscular Volume 93.3 fL (81.0-99.0); Mean Platelet Volume 10.6 fL (7.4-10.4); Nucleated Red Blood Cells % 0 %; Platelet Count 114 10^3/uL (130-400); Red Blood Cell Count 2.84 10^6/uL (4.20-5.40); Red Cell Dist. Width 13.9 % (11.5-14.5); White Blood Cell Count 6.9 10^3/uL (4.8-10.8)
[2024-02-03 08:43] LABS: ALT (SGPT) 19 U/L (0-35); AST (SGOT) 55 U/L (14-36); Albumin 2.7 g/dl (3.5-5.0); Alkaline Phosphatase 79 U/L (38-126); Blood Urea Nitrogen 11 mg/dl (7-17); Calcium 8.2 mg/dl (8.4-10.2); Carbon Dioxide 27 mmol/L (22-30); Chloride 100 mmol/L (98-107); Estimated Creatinine Clearance 93 ml/min; Glucose 84 mg/dl (70-99); Potassium 3.3 mmol/L (3.5-5.1); Sodium 133 mmol/L (135-145); Total Protein 7.1 g/dl (6.3-8.2); eGFR > 60.00
--- NOTE | 2024-02-03 09:07 | W.PN.GI.CBS2 ---
Today's Communication / Plan
-
Paracentesis today in the setting of bacteremia and abdominal pain in the setting of a cirrhotic
Prep for colonoscopy. I added magnesium citrate for this morning since she has a history of constipation colonoscopy tomorrow if prepped
, Clear liquids today
Assessment / Plan
-
1. Right upper quadrant pain: With mild CBD dilation, though LFTs only very minimally elevated, with strep species bacteremia, less likely to be cholangitis given LFTs. This dilation is new, however, and does also have some pancreatic duct
dilation which is new. Her leukocytosis has improved, afebrile overnight. There is minimal ascites on CT without any other new pathology, doubt SBP. Her pain is much improved, no significant tenderness now, possibly more related to constipation
given improvement after defecation. Given her new duct dilation along with pancreatic duct dilation, however, for any pathology. The dilation is likely secondary to opiates
2. Cirrhosis: secondary to alcohol primarily, with previous hepatitis C status posttreatment in the , decompensated with ascites and edema, only small volume ascites now on imaging, less likely SBP with focal pain, previous paracentesis
negative, no appreciable ascites now. Her mild confusion was likely secondary to bacteremia, now no further confusion, doubt hepatic encephalopathy. Alcohol in November. She now has ascites
#3 ascites -patient states she was on diuretics as an outpatient which she is getting 20 mg of Lasix only. In the setting of abdominal pain we will put in for diagnostic paracentesis in a cirrhotic
We will hold off on any further diuretics until after colonoscopy
.#4 bacteremia: Strep bovis, unclear source, , identification, continue antibiotics. ID following.
--Check paracentesis
--Colonoscopy tomorrow
-- -Echocardiogram was done on 02/01/2024 no evidence of vegetation. This was not a SANJIV
Subjective
Subjective
Date of Service: February 03, 2024
Patient still has some right upper quadrant discomfort to palpation. She underwent EUS last night. She has not had a bowel movement since 2 days ago.
Patient states she stopped drinking in November. First paracentesis was within the last couple of months which was negative for SBP.
In the setting of abdominal pain and ascites patient should get a diagnostic paracentesis. Will put that in for today
Objective
Data Reviewed
Laboratory Data:
Laboratory Results
02/03/24 07:28
02/03/24 07:28
Laboratory Results
PT 18.0 Sec (11.4-14.6) H 02/01/24 05:36
INR 1.51 02/01/24 05:36
Magnesium 1.4 mg/dl (1.6-2.3) L 01/29/24 16:45
Total Bilirubin 1.0 mg/dl (0.2-1.3) 02/03/24 07:28
AST 55 U/L (14-36) H 02/03/24 07:28
ALT 19 U/L (0-35) 02/03/24 07:28
Alkaline Phosphatase 79 U/L (38-126) 02/03/24 07:28
Lipase 31 U/L (23-300) 01/29/24 16:45
Vital Signs and I&O:
Vital Signs
Temp Pulse Resp BP Pulse Ox
97.7 F 85 20 111/62 95
02/03/24 07:35 02/03/24 07:35 02/03/24 07:35 02/03/24 07:35 02/03/24 09:04
I&O
02/02/24 02/03/24 02/04/24
06:59 06:59 06:59
Intake Total 1440 / 1440 380 / 380 420 / 420
Balance 1440 / 1440 380 / 380 420 / 420
Physical Exam
Physical Exam
HEENT: Anicteric
GI: Soft, Distended and Tender
Extremities: No Edema
Neuro: Non Focal
[2024-02-03] MEDS: LIDOCAINE 4% PATCH 2 PATCH TOPICAL (09:37)
[2024-02-03] MEDS: LYRICA 300 MG PO (09:43)
[2024-02-03] MEDS: DILANTIN 100 MG PO ×2 (09:43→20:38)
[2024-02-03] MEDS: LASIX 20 MG PO (09:43)
[2024-02-03] MEDS: PLAQUENIL 200 MG PO ×2 (09:43→20:38)
[2024-02-03] MEDS: DUPHALAC/CHRONULAC PO ×3 (09:43→22:19)
[2024-02-03] MEDS: PROTONIX 40 MG PO (09:43)
[2024-02-03] MEDS: OSCAL CAL 500 500 MG PO (09:44)
[2024-02-03] MEDS: CITROMA 300 ML PO (09:46)
--- NOTE | 2024-02-03 09:48 | CM ---
Addendum entered by Angelina Orozco 02/03/24 12:01:
Prescription for Antibiotics on the chart; copy of orders received; will send to facility once determined
Original Note:
Chart reviewed: paracentesis today; prep for colonoscopy
Plan: discharge to SNF when medically stable. Insurance Auth required. [facility] not accepted @ [facility] and [facility]; other referrals still pending
[2024-02-03 09:50] VITALS: BP 90/40; PULSE 72; O2SAT 95
[2024-02-03] MEDS: FLUSH (NSS) 1 FLUSH IV ×2 (09:53→12:21)
--- NOTE | 2024-02-03 11:43 | W.PN.HOSP.TC ---
Today's Communication/Plan
-
Monitor vital signs see plan
Pain control
Plan for colonoscopy tomorrow
Replete potassium aggressively
Continue with antibiotics
Assessment / Plan
Assessment / Plan
Physical Exam
General: No pallor, cyanosis, or jaundice.
HEENT: Throat clear. PERRLA Normocephalic atraumatic
NECK: Supple. No JVD Carotid Bruits
RESPIRATORY: Lungs clear to auscultation. No crackles wheezes stridor
CVS: S1, S2 normal. RRR. No murmur, rub or gallop.
ABDOMEN: Soft, distended tender. decreased bowel sounds
EXTREMITIES: No peripheral cyanosis or edema.
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
58y F with PMH significant for Hep C s/p treatment, alcohol abuse and cirrhosis who presents to ED complaining of abdominal pain epigastric and RUQ areas
#Abdominal pain with CBD dilatation/leukocytosis
#Streptococcal bovis bacteremia
#possible Infectious discitis
Abd US noted moderate hepatic cirrhosis, small volume ascities, moderate splenomegaly 2/2 portal hyn, distended gallbladder and CBD duct
Urine drug screen positive opiates, oxycodone, benzos, barbiturates, tricyclic's
Lactic acid 2.1 resolved
Blood cultures positive for strep species, blood cultures repeated NGTD
ID following, continue antibiotics per ID
pain control; lidocaine patch for back
Never had colonoscopy, given strep bovis recommend colonoscopy. GI following. Plan for colonoscopy 02/03
MRI/MRCP appreciated
-mod biliary gallbladder dilatation, mild pancreactic ductal dilatation, possible obstructing stricture ampulla
-moderate hepatic cirrhosis
-Portal htn w/ mod to severe splenomegaly
-small ascites
-previous instrumentation L4/L5 possible acute infectious discitis
-lower lobes possible atelectasis vs pna (incentive spirometer ordered)
Status post EUS/9 consistent with portal hypertension gastropathy
Hypokalemia
replete
CT abd/pelvis findings consistent with MRI
surgery eval appreciated; CA125 high, no surgical intervention recommended at this time.
#Chronic mild memory impairment-Per daughter ongoing since November [address] head: No evidence of acute intracranial hemorrhage or transcortical infarct. Mild diffuse cerebral and cerebellar volume loss
#History of cirrhosis
#Hep C-treated
#Hepatic encephalopathy confusion forgetfulness, asterixis
#Portal HTN
-Paracentesis x 2 November and mid December 2023
-Hold spironolactone 100 mg daily soft pressures
-continue Lasix 20 mg daily
-started lactulose 01/30, continue
#Chronic thrombocytopenia 2/2 cirrhosis
platelets stable
monitor
#Chronic anemia
monitor
#GERD
-Continue Prilosec, calcium carbonate
#Former alcohol abuse-stopped end of November 2023
#Drinks on weekends according to daughter
-Alcohol level negative Tylenol salicylate negative
#Rheumatoid arthritis/OA with chronic wrist deformities
#Chronic pain on chronic oral opiates
-hydroxychloroquine 200 mg twice daily
-Oxycodone 30 mg 4 times daily prn
-Patient on Fosamax monthly
#Seizure disorder
No seizure over 20 years
-Continue phenytoin 100 mg twice daily, Lyrica 300 mg daily
#Anxiety
-Patient on Xanax 2 mg 3 times daily switched to prn, reduced to 1.5 mg TIDPRN d/t concerns confusion cognitive memory issues.
#Depression
-Continue Zoloft 100 mg at bedtime, Seroquel 200 mg at bedtime
PT/OT SNF rehab
DVT prophylaxis Subcu Lovenox
Full code
I spent a total of 53 minutes with the patient or on the floor. More than 50% of this time involved counseling and coordination of care.
Anticipated Discharge: > 48 hours
Subjective/Interval History
-
Date of Service: February 03, 2024
denies nausea
Objective Data
-
Labs:
Laboratory Results
02/03/24
07:28
WBC 6.9
Hgb 8.5 L
Hct 26.5 L
Plt Count 114 L
Sodium 133 L
Potassium 3.3 L
Chloride 100
Carbon Dioxide 27
BUN 11
Creatinine 0.6
Glucose 84
Calcium 8.2 L
Total Bilirubin 1.0
AST 55 H
ALT 19
Alkaline Phosphatase 79
Vital Signs:
Vital Signs
Temp Pulse Resp BP Pulse Ox
97.7 F 85 20 111/62 95
02/03/24 07:35 02/03/24 09:43 02/03/24 07:35 02/03/24 09:43 02/03/24 09:04
I&O
02/02/24 02/03/24 02/04/24
06:59 06:59 06:59
Intake Total 1440 / 1440 380 / 380 420 / 420
Balance 1440 / 1440 380 / 380 420 / 420
--- NOTE | 2024-02-03 11:47 | W.PN.ID1 ---
Date of Service
Date of Service: February 03, 2024
Today's Communication
Narrow Unasyn to ceftriaxone 2g IV q24h through 03/14/24.
Assessment / Plan
# Streptococcal bovis bacteremia (2 sets 1 hour apart)
# Suspect L4/L5 discitis, HW infection with sxs acute on chronic back pain
# Bile duct and pancreatic duct dilation - no obstruction found by ERCP
# Cirrhosis with hepatic decompensation.
# Alcohol abuse
- Repeat bcx's negative
-TTE no gross vegetation. No need for SANJIV as planning to treat x 6 weeks.
- ERCP/EUS no biliary duct obstruction
- For colonoscopy tomorrow
- Narrow Unasyn to ceftriaxone 2g IV q24h through 03/14/24.
Infusion sheet submitted to outsole caser.
- Place PICC when close to discharge.
%Additional Past Medical History:
alcohol abuse
cirrhosis
Ascites
seizures
GERD
Hx hep C-treated in past
chronic low back pain/spinal stenosis on chronic opiates
depression/anxiety
OA
RA
Acne on chronic doxycycline
nicotine abuse
former IVDA
L4/L5 surgery with hardware
bilateral wrist fracture repair
B/L foot fx repair
Chief Complaint
-: Bacteremia
Subjective / Review of Systems
Still with back pain
Vital Signs / Physical Exam
Vital Signs
Vital Signs
Temp Pulse Resp BP Pulse Ox
97.7 F 85 20 111/62 95
02/03/24 07:35 02/03/24 09:43 02/03/24 07:35 02/03/24 09:43 02/03/24 09:04
Physical Exam
Constitutional: No Acute Distress
Cardiovascular: Regular Rate and S1/S2
Pulmonary: Clear
Gastrointestinal: Soft and Non Tender
Neurological: AO x 3
Objective Data
Lab Data
Lab Results
02/03/24 07:28
02/03/24 07:28
PT 18.0 Sec (11.4-14.6) H 02/01/24 05:36
INR 1.51 02/01/24 05:36
Estimated Creat Clear 93 ml/min 02/03/24 07:28
Lactic Acid 1.4 mmol/L (0.7-2.0) 01/29/24 21:39
Total Bilirubin 1.0 mg/dl (0.2-1.3) 02/03/24 07:28
AST 55 U/L (14-36) H 02/03/24 07:28
ALT 19 U/L (0-35) 02/03/24 07:28
Alkaline Phosphatase 79 U/L (38-126) 02/03/24 07:28
C-Reactive Protein 63.10 mg/L (0.0-10.00) H 01/31/24 07:09
Most recent labs reviewed.
Micro Results:
01/30/24 10:14 Blood Culture - Preliminary
Blood/Venous No Growth in 4 days- Final report to follow
01/30/24 09:47 Blood Culture - Preliminary
Blood/Venous No Growth in 4 days- Final report to follow
01/29/24 18:12 Blood Culture - Final
Blood/Venous Streptococcus bovis
Gram Stain - Final
01/29/24 16:45 Blood Culture - Final
Blood/Venous Streptococcus bovis
Gram Stain - Final
01/30/24 04:58 MRSA Screen - Final
Nose No Methicillin Resistant Staphylococcus aureus isolated.
01/30/24 MRI abdomen: Moderate biliary dilatation, moderate gallbladder dilatation, and mild pancreatic ductal dilatation which appears increased from 01/22/2024 raising the possibility of an obstructing stricture at the ampulla. Previous bilateral
posterior instrumentation at L4/L5 with fluid signal in the intervertebral disc and adjacent bone marrow signal intensity changes in the superior endplate of L5 which appears new and raises the possibility of acute infectious discitis if there are
signs/symptoms of infection. Degenerative disease is an alternative diagnostic possibility.
01/29/24 ABD US: Small volume of upper abdominal ascites.MODERATE HEPATIC CIRRHOSIS. Moderate splenomegaly secondary to portal hypertension. Distended gallbladder and common bile duct.
[2024-02-03] MEDS: KCL 40 MEQ PO ×2 (12:20→14:55)
[2024-02-03] MEDS: ROCEPHIN 2000 MG IV (12:20)
[2024-02-03] MEDS: STERILE WATER FOR INJECTION 20 ML IV (12:21)
[2024-02-03 15:00] VITALS: BP 103/55
--- NOTE | 2024-02-03 16:21 | PTCARENOTE ---
Pt AAO x3, anxious at times, has (+) hand tremors. MACEDO; transfers to BSC with assist x1; pt c/o constant Rt lower back/hip/upper leg pain '08/04'; reports minimal effect from all prn pain meds; Dr. Velázquez aware. VSS. On room air- pulseox 96%, no
c/o SOB. Abd large, soft, dwight clear liquid diet; pt to start bowel prep for colonoscopy 02/03. Pt having loose BM's on BSC. Voids on BSC without difficulty. Currently resting in bed. Will continue to monitor.
[2024-02-03] MEDS: NULYTELY SOLUTION 4 LITERS PO (16:37)
[2024-02-03] MEDS: LOVENOX 40 MG SC (17:24)
[2024-02-03] MEDS: SEROQUEL 200 MG PO (21:41)
[2024-02-03] MEDS: ZOLOFT 200 MG PO (21:41)
[2024-02-03] MEDS: DILAUDID 0.5 MG IV (21:42)
[2024-02-03 23:23] VITALS: BP 91/52
--- NOTE | 2024-02-04 00:35 | PTCARENOTE ---
Pt refused to finish the colonoscopy prep with a little more then 2L left stating, she can no longer drink the rest of the prep and feels she is cleared due to hx of poor appetite. RN encouraged pt on the importance to finish prep and monitored BM
which showed stool still present. Pt still refused. RN notified GI as per order- no new orders at this time.
[2024-02-04] MEDS: ROXICODONE 30 MG PO ×4 (03:56→18:26)
[2024-02-04 04:57] VITALS: BMI 25.9
[2024-02-04] MEDS: DILAUDID 0.5 MG IV ×4 (05:01→20:07)
[2024-02-04 05:57] LABS: % Basophils 0.8 % (0-2); % Eosinophils 2.2 % (0-6); % Immature Granulocytes 0.8 % (0-0.5); % Lymphocytes 13.2 % (20.5-51.1); % Monocytes 11.6 % (1.7-9.3); % Neutrophils 71.4 % (42.2-75.2); Absolute Basophils 0.1 10^3/uL (0-0.2); Absolute Eosinophils 0.1 10^3/uL (0-0.7); Absolute Immature Granulocytes 0.1 10^3/uL (0-0.05); Absolute Lymphocytes 0.9 10^3/uL (1.2-3.4); Absolute Monocytes 0.8 10^3/uL (0.1-0.6); Absolute Neutrophils 4.6 10^3/uL (1.4-6.5); Hematocrit 24.6 % (37.0-47.0); Hemoglobin 8.3 g/dL (12.0-16.0); Mean Corp Hgb Conc. 33.7 g/dL (33.0-37.0); Mean Corpuscular Hgb 30.9 pg (27.0-31.0); Mean Corpuscular Volume 91.4 fL (81.0-99.0); Mean Platelet Volume 10.5 fL (7.4-10.4); Nucleated Red Blood Cells % 0 %; Platelet Count 113 10^3/uL (130-400); Red Blood Cell Count 2.69 10^6/uL (4.20-5.40); Red Cell Dist. Width 14.1 % (11.5-14.5); White Blood Cell Count 6.5 10^3/uL (4.8-10.8)
[2024-02-04 06:36] LABS: ALT (SGPT) 19 U/L (0-35); AST (SGOT) 54 U/L (14-36); Albumin 2.6 g/dl (3.5-5.0); Alkaline Phosphatase 79 U/L (38-126); Blood Urea Nitrogen 7 mg/dl (7-17); Calcium 8.2 mg/dl (8.4-10.2); Carbon Dioxide 24 mmol/L (22-30); Chloride 106 mmol/L (98-107); Estimated Creatinine Clearance 93 ml/min; Glucose 93 mg/dl (70-99); Potassium 3.7 mmol/L (3.5-5.1); Sodium 133 mmol/L (135-145); Total Bilirubin 0.8 mg/dl (0.2-1.3); Total Protein 6.9 g/dl (6.3-8.2); eGFR > 60.00
[2024-02-04 07:49] VITALS: BP 100/53
[2024-02-04] MEDS: LASIX 20 MG PO (08:11)
[2024-02-04] MEDS: DILANTIN 100 MG PO ×2 (08:11→20:07)
[2024-02-04] MEDS: DUPHALAC/CHRONULAC PO ×3 (08:11→22:05)
[2024-02-04] MEDS: OSCAL CAL 500 500 MG PO (08:12)
[2024-02-04] MEDS: LYRICA 300 MG PO (08:12)
[2024-02-04] MEDS: PROTONIX 40 MG PO (08:12)
[2024-02-04] MEDS: PLAQUENIL 200 MG PO ×2 (08:12→20:07)
[2024-02-04] MEDS: LIDOCAINE 4% PATCH 2 PATCH TOPICAL (08:12)
[2024-02-04] MEDS: XANAX 1.5 MG PO ×3 (08:22→22:17)
--- NOTE | 2024-02-04 09:54 | W.PN.ID1 ---
Date of Service
Date of Service: February 04, 2024
Today's Communication
Colonoscopy today.
Continue ceftriaxone 2g IV q24h through 03/14/24.
Follow weekly CBC/diff, CMP, CRP.
Infusion sheet submitted to geriatric case manager.
Place PICC when close to discharge.
Assessment / Plan
# Streptococcal bovis bacteremia (2 sets 1 hour apart)
# Suspect L4/L5 discitis, HW infection with sxs acute on chronic back pain (see MRI report)
# Bile duct and pancreatic duct dilation - no obstruction found by ERCP
# Cirrhosis s/p hepatic decompensation.
# Alcohol abuse
- Repeat bcx's negative
-TTE no gross vegetation. No need for SANJIV as planning to treat x 6 weeks.
- ERCP/EUS no biliary duct obstruction
- For colonoscopy today
- Continue ceftriaxone 2g IV q24h through 03/14/24.
Follow weekly CBC/diff, CMP, CRP.
Infusion sheet submitted to geriatric case manager.
- Place PICC when close to discharge.
-Follow-up with Dr. Ramirez in 3-4 weeks.
# Dispo: awaiting SNF placement
%Additional Past Medical History:
alcohol abuse
cirrhosis
Ascites
seizures
GERD
Hx hep C-treated in past
chronic low back pain/spinal stenosis on chronic opiates
depression/anxiety
OA
RA
Acne on chronic doxycycline
nicotine abuse
former IVDA
L4/L5 surgery with hardware
bilateral wrist fracture repair
B/L foot fx repair
Chief Complaint
-: Bacteremia
Subjective / Review of Systems
For colonoscopy. Back pain stable.
Vital Signs / Physical Exam
Vital Signs
Vital Signs
Temp Pulse Resp BP Pulse Ox
98.8 F 74 17 100/53 100
02/04/24 07:49 04/11/24 07:49 02/04/24 07:49 02/04/24 07:49 02/04/24 07:49
Physical Exam
Constitutional: No Acute Distress
Cardiovascular: Regular Rate and S1/S2
Pulmonary: Clear
Gastrointestinal: Soft and Non Tender
Musculoskeletal: Spinal Tenderness (Lumbar right paraspinal point tenderness)
Neurological: AO x 3
Objective Data
Lab Data
Lab Results
02/04/24 05:24
02/04/24 05:24
PT 18.0 Sec (11.4-14.6) H 02/01/24 05:36
INR 1.51 02/01/24 05:36
Estimated Creat Clear 93 ml/min 02/04/24 05:24
Lactic Acid 1.4 mmol/L (0.7-2.0) 01/29/24 21:39
Total Bilirubin 0.8 mg/dl (0.2-1.3) 02/04/24 05:24
AST 54 U/L (14-36) H 02/04/24 05:24
ALT 19 U/L (0-35) 02/04/24 05:24
Alkaline Phosphatase 79 U/L (38-126) 02/04/24 05:24
C-Reactive Protein 63.10 mg/L (0.0-10.00) H 01/31/24 07:09
Most recent labs reviewed.
Micro Results:
01/30/24 10:14 Blood Culture - Preliminary
Blood/Venous No Growth in 4 days- Final report to follow
01/30/24 09:47 Blood Culture - Preliminary
Blood/Venous No Growth in 4 days- Final report to follow
01/29/24 18:12 Blood Culture - Final
Blood/Venous Streptococcus bovis
Gram Stain - Final
01/29/24 16:45 Blood Culture - Final
Blood/Venous Streptococcus bovis
Gram Stain - Final
01/30/24 04:58 MRSA Screen - Final
Nose No Methicillin Resistant Staphylococcus aureus isolated.
01/30/24 MRI abdomen: Moderate biliary dilatation, moderate gallbladder dilatation, and mild pancreatic ductal dilatation which appears increased from 01/22/2024 raising the possibility of an obstructing stricture at the ampulla. Previous bilateral
posterior instrumentation at L4/L5 with fluid signal in the intervertebral disc and adjacent bone marrow signal intensity changes in the superior endplate of L5 which appears new and raises the possibility of acute infectious discitis if there are
signs/symptoms of infection. Degenerative disease is an alternative diagnostic possibility.
01/29/24 ABD US: Small volume of upper abdominal ascites.MODERATE HEPATIC CIRRHOSIS. Moderate splenomegaly secondary to portal hypertension. Distended gallbladder and common bile duct.
--- NOTE | 2024-02-04 09:56 | W.PN.GI.CBS2 ---
Addendum entered and electronically signed by iG Victor DO 02/04/24 16:36:
Patient seen and examined independently of MEDICAL TECHNICIAN. I agree with her note with my additions below
Patient was unable to finish the entire prep. She also deals with constipation so she was not clear with a third of the prep.
Over the day she continues to drink the remaining gallon and also take an additional magnesium citrate.
1. Right upper quadrant pain: With mild CBD dilation, though LFTs only very minimally elevated, with strep bovis blood cultures x 2 on 01/29/2024, less likely to be cholangitis given LFTs.
-- EUS was done because of double duct sign but it was thought due to narcotics and her EUS was unremarkable with Dr. Conklin
2. Cirrhosis: secondary to alcohol primarily, with previous hepatitis C status posttreatment in the , decompensated with ascites and edema, only small volume ascites now on imaging, less likely SBP with focal pain, previous paracentesis
negative, no appreciable ascites now. Her mild confusion was likely secondary to bacteremia, now no further confusion, doubt hepatic encephalopathy. Alcohol in November. She now has ascites
#3 ascites -in the setting of cirrhosis, bacteremia and abdominal pain patient should undergo diagnostic paracentesis, according to IR, patient did not have enough ascites to do a diagnostic paracentesis. Patient states she was on diuretics as an
outpatient which she is getting 20 mg of Lasix only.
.#4 bacteremia: Strep bovis, unclear source, , identification, continue antibiotics. ID following.
--Colonoscopy tomorrow
-- -Echocardiogram was done on 02/01/2024 no evidence of vegetation. This was not a SANJIV
Original Note:
Today's Communication / Plan
-
reviewed with IR will verify but not enough fluid to tap for para 02/02
still with some abdominal pain back pain -- may be constipation based vs other
s/p completed EUS
plan for colonoscopy today with strep bovis only took 1/3 prep and admits to constipation prior to admission
reviewed with patient to continued prep and will add additional mag citrate and plan for colonoscopy 4/12
cont lactulose currently on TID, Lasix 20mg daily-- consider increasing dose after colonoscopy if further ascites develops
cont abx per ID currently on Rocephin
trend labs
ETOH abstinence
updated nursing
Assessment / Plan
-
Pt is a 58-year-old female with a past medical history significant for decompensated alcoholic liver cirrhosis newly diagnosed in November, history of hep C with treatment with interferon in ribavirin in 1998, GERD, seizure disorder on Dilantin,
chronic doxycycline for acne, history of IV drug abuse, depression, anxiety, chronic opiates secondary to spinal stenosis, who presented to the emergency room with complaints of mid epigastric pain and right upper quadrant pain. abnormal ultrasound
concerning for cholecystitis with CBD dilation and known history of decompensated liver cirrhosis. LFTs are not significantly elevated to suggest cholangitis or acute biliary obstruction but with CBD findings cannot rule this out. Since admission
completed EUS and also noted strep bovis bacteremia with plan for colonoscopy.
02/01 EUS - Portal hypertensive gastropathy.
- Normal duodenal bulb, first portion of the duodenum
and second portion of the duodenum.
- Ascites was found on endosonographic examination of
the peritoneal cavity.
- Pancreatic parenchymal abnormalities consisting of
hyperechoic strands and hyperechoic foci were noted in
the pancreatic head and pancreatic body.
- Main pancreatic duct (MPD) diameter was measured.
Endosonographically, the MPD had a normal appearance.
- There was dilation in the common bile duct which
measured up to 8 mm.
- There was no sign of significant pathology in the
ampulla.
- Three enlarged lymph nodes were visualized in the
celine hepatis region.
- No specimens collected.
-- -Echocardiogram was done on 02/01/2024 no evidence of vegetation. This was not a SANJIV
Problem list:
-Abdominal pain
-strep bovis bacteremia
-CBD dilation s/p EUS
-?cholecystitis with CBD dilation and distended gallbladder, no cholelithiasis
-Decompensated alcoholic liver cirrhosis with ascites, MELD-Na 17
-Elevated ammonia level with mild HE in setting of bacteremia
-Leukocytosis- resolved
-History of hepatitis C with treatment
Other current medical history:
-Seizure disorder on Dilantin
-GERD
-History of IV drug use
-Anxiety/depression
-Spinal stenosis on chronic opiates
PLAN:
reviewed with IR will verify but not enough fluid to tap for para 02/02
still with some abdominal pain back pain -- may be constipation based vs other
s/p completed EUS
plan for colonoscopy today with strep bovis only took 1/3 prep and admits to constipation prior to admission
reviewed with patient to continued prep and will add additional mag citrate and plan for colonoscopy 02/04
cont lactulose currently on TID, Lasix 20mg daily-- consider increasing dose after colonoscopy if further ascites develops
cont abx per ID currently on Rocephin
trend labs
ETOH abstinence
updated nursing
Subjective
Subjective
Date of Service: February 04, 2024
judge liquid stools NPO but now back to clears as not clear to proceed with colonoscopy today still with abdominal pain, back pain
Objective
Data Reviewed
Laboratory Data:
Laboratory Results
02/04/24 05:24
02/04/24 05:24
Laboratory Results
PT 18.0 Sec (11.4-14.6) H 02/01/24 05:36
INR 1.51 02/01/24 05:36
Magnesium 1.4 mg/dl (1.6-2.3) L 01/29/24 16:45
Total Bilirubin 0.8 mg/dl (0.2-1.3) 02/04/24 05:24
AST 54 U/L (14-36) H 02/04/24 05:24
ALT 19 U/L (0-35) 02/04/24 05:24
Alkaline Phosphatase 79 U/L (38-126) 02/04/24 05:24
Lipase 31 U/L (23-300) 01/29/24 16:45
Vital Signs and I&O:
Vital Signs
Temp Pulse Resp BP Pulse Ox
98.8 F 74 17 100/53 100
02/04/24 07:49 02/04/24 07:49 02/04/24 07:49 02/04/24 07:49 02/04/24 07:49
I&O
02/03/24 02/04/24 02/05/24
06:59 06:59 06:59
Intake Total 380 / 380 2220 / 2220
Output Total 200 / 200
Balance 380 / 380 2019
Physical Exam
Physical Exam
HEENT: Anicteric and Moist mucous membranes
Cardiology: Normal Sinus Rhythm
Pulmonary: Clear
GI: Soft, Distended and Non Tender
Extremities: No Edema
Neuro: Non Focal
[2024-02-04] MEDS: FLUSH (NSS) 2 FLUSH IV ×2 (10:39→12:36)
[2024-02-04] MEDS: DUPHALAC/CHRONULAC 20 GRAMS PO (10:40)
--- NOTE | 2024-02-04 11:37 | CM ---
Addendum entered by Angelina Orozco 02/04/24 12:09:
Spoke with [facility]; bed is available @ [facility]; sent referral via [facility]
Faxed ABX Script to [facility] @ #[phone]
Original Note:
Met with patient at bedside to discuss discharge plan
Patient is scheduled for colonoscopy tomorrow
Explained that many of the SNF referrals were not accepted. Discussed going to [facility] when medically stable if offer from [facility] is still an option.
Patient is agreeable with this plan. Left Darlene a voice mail message.
Prescription for IV antibiotic is on the chart. Need to fax to facility once referral is accepted and
Authorization needed
CM will continue to follow and coordinate discharge plan
--- NOTE | 2024-02-04 12:12 | W.PN.HOSP.TC ---
Today's Communication/Plan
-
Monitor vital signs and see plan
Continue with antibiotics
Colonoscopy now tomorrow
Pain control
Will need PICC line prior to DC
Assessment / Plan
Assessment / Plan
Physical Exam
General: No pallor, cyanosis, or jaundice.
HEENT: Throat clear. PERRLA Normocephalic atraumatic
NECK: Supple. No JVD Carotid Bruits
RESPIRATORY: Lungs clear to auscultation. No crackles wheezes stridor
CVS: S1, S2 normal. RRR. No murmur, rub or gallop.
ABDOMEN: Soft, distended tender. decreased bowel sounds
EXTREMITIES: No peripheral cyanosis or edema.
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
58y F with PMH significant for Hep C s/p treatment, alcohol abuse and cirrhosis who presents to ED complaining of abdominal pain epigastric and RUQ areas
#Abdominal pain with CBD dilatation/leukocytosis
#Streptococcal bovis bacteremia
#possible Infectious discitis
Abd US noted moderate hepatic cirrhosis, small volume ascities, moderate splenomegaly 2/2 portal hyn, distended gallbladder and CBD duct
Urine drug screen positive opiates, oxycodone, benzos, barbiturates, tricyclic's
Lactic acid 2.1 resolved
Blood cultures positive for strep species, blood cultures repeated NGTD
ID following, continue antibiotics per ID,ceftriaxone 2g IV q24h through 03/14/24. Will need PICC line prior to DC
pain control; lidocaine patch for back
Never had colonoscopy, given strep bovis recommend colonoscopy. GI following. Plan for colonoscopy in 02/04 as patient didnt took enough prep
MRI/MRCP appreciated
-mod biliary gallbladder dilatation, mild pancreactic ductal dilatation, possible obstructing stricture ampulla
-moderate hepatic cirrhosis
-Portal htn w/ mod to severe splenomegaly
-small ascites
-previous instrumentation L4/L5 possible acute infectious discitis
-lower lobes possible atelectasis vs pna (incentive spirometer ordered)
Status post EUS 02/01 consistent with portal hypertension gastropathy
IR attempted para 02/02 however not enough fluid
Hypokalemia
replete
CT abd/pelvis findings consistent with MRI
surgery eval appreciated; CA125 high, no surgical intervention recommended at this time.
#Chronic mild memory impairment-Per daughter ongoing since November [address] head: No evidence of acute intracranial hemorrhage or transcortical infarct. Mild diffuse cerebral and cerebellar volume loss
#History of cirrhosis
#Hep C-treated
#Hepatic encephalopathy confusion forgetfulness, asterixis
#Portal HTN
-Paracentesis x 2 November and mid December 2023
-Hold spironolactone 100 mg daily soft pressures
-continue Lasix 20 mg daily
-started lactulose 01/30, continue
#Chronic thrombocytopenia 2/2 cirrhosis
platelets stable
monitor
#Chronic anemia
monitor
#GERD
-Continue Prilosec, calcium carbonate
#Former alcohol abuse-stopped end of November 2023
#Drinks on weekends according to daughter
-Alcohol level negative Tylenol salicylate negative
#Rheumatoid arthritis/OA with chronic wrist deformities
#Chronic pain on chronic oral opiates
-hydroxychloroquine 200 mg twice daily
-Oxycodone 30 mg 4 times daily prn
-Patient on Fosamax monthly
#Seizure disorder
No seizure over 20 years
-Continue phenytoin 100 mg twice daily, Lyrica 300 mg daily
#Anxiety
-Patient on Xanax 2 mg 3 times daily switched to prn, reduced to 1.5 mg TIDPRN d/t concerns confusion cognitive memory issues.
#Depression
-Continue Zoloft 100 mg at bedtime, Seroquel 200 mg at bedtime
PT/OT SNF rehab
DVT prophylaxis Subcu Lovenox
Full code
Anticipated Discharge: 24 - 48 hours
Subjective/Interval History
-
Date of Service: February 04, 2024
Denies nausea
Objective Data
-
Labs:
Laboratory Results
02/04/24
05:24
WBC 6.5
Hgb 8.3 L
Hct 24.6 L
Plt Count 113 L
Sodium 133 L
Potassium 3.7
Chloride 106
Carbon Dioxide 24
BUN 7
Creatinine 0.6
Glucose 93
Calcium 8.2 L
Total Bilirubin 0.8
AST 54 H
ALT 19
Alkaline Phosphatase 79
Vital Signs:
Vital Signs
Temp Pulse Resp BP Pulse Ox
98.8 F 74 17 100/53 100
02/04/24 07:49 02/04/24 07:49 02/04/24 07:49 02/04/24 07:49 02/04/24 07:49
I&O
02/03/24 02/04/24 02/05/24
06:59 06:59 06:59
Intake Total 380 / 380 2219 / 2219
Output Total 200 / 200
Balance 380 / 380 2019
[2024-02-04] MEDS: KCL 40 MEQ PO (12:35)
[2024-02-04] MEDS: ROCEPHIN 2000 MG IV (12:35)
[2024-02-04] MEDS: STERILE WATER FOR INJECTION 20 ML IV (12:36)
[2024-02-04 15:14] VITALS: BP 106/57
[2024-02-04 15:49] VITALS: BMI 25.9
[2024-02-04] MEDS: CITROMA 300 ML PO (16:14)
--- NOTE | 2024-02-04 16:37 | W.PN.UPDATE ---
Update Note
Progress Note Update
For billing purposes only
[2024-02-04] MEDS: LOVENOX 40 MG SC (17:51)
[2024-02-04] MEDS: SEROQUEL 200 MG PO (22:05)
[2024-02-04] MEDS: ZOLOFT 200 MG PO (22:05)
[2024-02-04 23:00] VITALS: BP 121/64
[2024-02-05] VITALS (10 sets, daily range): BP systolic 17–120; BP diastolic 54–80; BMI 26.0
[2024-02-05] MEDS: DILAUDID 0.5 MG IV ×4 (00:04→16:08)
[2024-02-05] MEDS: ROXICODONE 30 MG PO ×2 (04:43→20:20)
[2024-02-05] MEDS: LYRICA 300 MG PO (07:54)
[2024-02-05] MEDS: OSCAL CAL 500 500 MG PO (07:54)
[2024-02-05] MEDS: PROTONIX 40 MG PO (07:54)
[2024-02-05] MEDS: DILANTIN 100 MG PO ×2 (07:54→20:20)
[2024-02-05] MEDS: LASIX 20 MG PO (07:55)
[2024-02-05] MEDS: PLAQUENIL 200 MG PO ×2 (07:55→20:20)
[2024-02-05] MEDS: LIDOCAINE 4% PATCH 2 PATCH TOPICAL (07:55)
[2024-02-05] MEDS: DUPHALAC/CHRONULAC PO ×3 (07:55→22:14)
[2024-02-05 08:15] LABS: % Basophils 0.7 % (0-2); % Eosinophils 2.2 % (0-6); % Lymphocytes 13.9 % (20.5-51.1); % Monocytes 12.6 % (1.7-9.3); % Neutrophils 69.6 % (42.2-75.2); Absolute Eosinophils 0.1 10^3/uL (0-0.7); Absolute Immature Granulocytes 0.1 10^3/uL (0-0.05); Absolute Lymphocytes 0.8 10^3/uL (1.2-3.4); Absolute Monocytes 0.7 10^3/uL (0.1-0.6); Absolute Neutrophils 4.1 10^3/uL (1.4-6.5); Hematocrit 25.6 % (37.0-47.0); Hemoglobin 8.6 g/dL (12.0-16.0); Mean Corp Hgb Conc. 33.6 g/dL (33.0-37.0); Mean Corpuscular Hgb 31.3 pg (27.0-31.0); Mean Corpuscular Volume 93.1 fL (81.0-99.0); Mean Platelet Volume 10.6 fL (7.4-10.4); Nucleated Red Blood Cells % 0 %; PT 19.8 Sec (11.4-14.6); Platelet Count 135 10^3/uL (130-400); Red Blood Cell Count 2.75 10^6/uL (4.20-5.40); Red Cell Dist. Width 14.4 % (11.5-14.5); White Blood Cell Count 5.9 10^3/uL (4.8-10.8)
[2024-02-05 08:32] LABS: ALT (SGPT) 18 U/L (0-35); AST (SGOT) 48 U/L (14-36); Albumin 2.8 g/dl (3.5-5.0); Alkaline Phosphatase 88 U/L (38-126); Blood Urea Nitrogen 4 mg/dl (7-17); Calcium 8.2 mg/dl (8.4-10.2); Carbon Dioxide 20 mmol/L (22-30); Chloride 107 mmol/L (98-107); Estimated Creatinine Clearance 93 ml/min; Glucose 96 mg/dl (70-99); Potassium 3.8 mmol/L (3.5-5.1); Sodium 133 mmol/L (135-145); Total Bilirubin 0.7 mg/dl (0.2-1.3); Total Protein 7.4 g/dl (6.3-8.2); eGFR > 60.00
--- NOTE | 2024-02-05 10:27 | PTCARENOTE ---
Pt returned from PACU s/p colonoscopy via stretcher, accompanied by volunteer. Pt AAO x3, MACEDO able tot ransfer to bed with assist x1; no c/o weakness/dizziness. VSS. On room air- no c/o SOB, lungs clear A/P. Pulse ox 95%. Abd large, soft, to
start reg diet; no c/o abd discomfort. Voided on BSC opon arrival to room. Resting comfortably at present. Will continue to monitor.
[2024-02-05] MEDS: FLUSH (NSS) 1 FLUSH IV ×3 (11:10→16:08)
[2024-02-05] MEDS: STERILE WATER FOR INJECTION 20 ML IV (12:25)
[2024-02-05] MEDS: ROCEPHIN 2000 MG IV (12:25)
--- NOTE | 2024-02-05 13:17 | W.PN.HOSP.TC ---
Today's Communication/Plan
-
Monitor vital signs and see plan
PICC line today
Status post colonoscopy
Pain control
Discharge planning
Assessment / Plan
Assessment / Plan
Physical Exam
General: No pallor, cyanosis, or jaundice.
HEENT: Throat clear. PERRLA Normocephalic atraumatic
NECK: Supple. No JVD Carotid Bruits
RESPIRATORY: Lungs clear to auscultation. No crackles wheezes stridor
CVS: S1, S2 normal. RRR. No murmur, rub or gallop.
ABDOMEN: Soft, distended tender. decreased bowel sounds
EXTREMITIES: No peripheral cyanosis or edema.
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
58y F with PMH significant for Hep C s/p treatment, alcohol abuse and cirrhosis who presents to ED complaining of abdominal pain epigastric and RUQ areas
#Abdominal pain with CBD dilatation/leukocytosis
#Streptococcal bovis bacteremia
#possible Infectious discitis
Abd US noted moderate hepatic cirrhosis, small volume ascities, moderate splenomegaly 2/2 portal hyn, distended gallbladder and CBD duct
Urine drug screen positive opiates, oxycodone, benzos, barbiturates, tricyclic's
Lactic acid 2.1 resolved
Blood cultures positive for strep species, blood cultures repeated NGTD
ID following, continue antibiotics per ID,ceftriaxone 2g IV q24h through 03/14/24. PICC line today
pain control; lidocaine patch for back
Never had colonoscopy, given strep bovis recommend colonoscopy. GI following. Status post colonoscopy 02/04 with nonbleeding internal hemorrhoids, multiple polyps which were removed. Per GI appears precancerous. Patient will follow-up with GI
outpatient
MRI/MRCP appreciated
-mod biliary gallbladder dilatation, mild pancreactic ductal dilatation, possible obstructing stricture ampulla
-moderate hepatic cirrhosis
-Portal htn w/ mod to severe splenomegaly
-small ascites
-previous instrumentation L4/L5 possible acute infectious discitis
-lower lobes possible atelectasis vs pna (incentive spirometer ordered)
Status post EUS 02/01 consistent with portal hypertension gastropathy
IR attempted para 02/02 however not enough fluid
Hypokalemia
Resolved
CT abd/pelvis findings consistent with MRI
surgery eval appreciated; CA125 high, no surgical intervention recommended at this time.
#Chronic mild memory impairment-Per daughter ongoing since November [address] head: No evidence of acute intracranial hemorrhage or transcortical infarct. Mild diffuse cerebral and cerebellar volume loss
#History of cirrhosis
#Hep C-treated
#Hepatic encephalopathy confusion forgetfulness, asterixis
#Portal HTN
-Paracentesis x 2 November and mid December 2023
-Hold spironolactone 100 mg daily soft pressures
-continue Lasix 20 mg daily
-started lactulose 01/30, continue
#Chronic thrombocytopenia 2/2 cirrhosis
platelets stable
monitor
#Chronic anemia
monitor
#GERD
-Continue Prilosec, calcium carbonate
#Former alcohol abuse-stopped end of November 2023
#Drinks on weekends according to daughter
-Alcohol level negative Tylenol salicylate negative
#Rheumatoid arthritis/OA with chronic wrist deformities
#Chronic pain on chronic oral opiates
-hydroxychloroquine 200 mg twice daily
-Oxycodone 30 mg 4 times daily prn
-Patient on Fosamax monthly
#Seizure disorder
No seizure over 20 years
-Continue phenytoin 100 mg twice daily, Lyrica 300 mg daily
#Anxiety
-Patient on Xanax 2 mg 3 times daily switched to prn, reduced to 1.5 mg TIDPRN d/t concerns confusion cognitive memory issues.
#Depression
-Continue Zoloft 100 mg at bedtime, Seroquel 200 mg at bedtime
PT/OT SNF rehab
DVT prophylaxis Subcu Lovenox
Full code
Anticipated Discharge: 24 - 48 hours
Subjective/Interval History
-
Date of Service: February 05, 2024
Denies nausea
Objective Data
-
Labs:
Laboratory Results
02/05/24
07:12
WBC 5.9
Hgb 8.6 L
Hct 25.6 L
Plt Count 135
PT 19.8 H
INR 1.70
Sodium 133 L
Potassium 3.8
Chloride 107
Carbon Dioxide 20 L
BUN 4 L
Creatinine 0.5 L
Glucose 96
Calcium 8.2 L
Total Bilirubin 0.7
AST 48 H
ALT 18
Alkaline Phosphatase 88
Vital Signs:
Vital Signs
Temp Pulse Resp BP Pulse Ox
98.2 F 75 18 104/59 98
02/05/24 12:30 02/05/24 12:30 02/05/24 12:30 02/05/24 12:30 02/05/24 12:30
I&O
02/04/24 02/05/24 02/06/24
06:59 06:59 06:59
Intake Total 2220 / 2220 480 / 480 480 / 480
Output Total 200 / 200 400 / 400
Balance 2019 / 2019 80 / 80 480 / 480
--- NOTE | 2024-02-05 13:22 | W.PN.UPDATE ---
Update Note
Progress Note Update
pt notified will cancel EGD scheduled later this month as completed as inpatient.
[2024-02-05] MEDS: XANAX 1.5 MG PO ×2 (14:39→22:16)
--- NOTE | 2024-02-05 16:04 | VATNOTE ---
Per xray Result RUE PICC pulled back 4 cm without difficulty. Dressing changed and active bleeding noted; Quick Clot placed at insertion site.
--- NOTE | 2024-02-05 16:18 | PTCARENOTE ---
Pt AAO x3, MACEDO; OOB to BSC with minimal assistance; dwight well but c/o rt hip/upper leg/occ Rt lower back pain with movement; repeatedly asking for 'all of my pain medication'; states 'Nothing works'; consistently rates pain '10/10'. VSS. On room
air- pulse ox 98%, no SOB noted. Abd large, soft, dwight reg diet, appetite good. Voids on BSC without difficulty. Resting in bed at present. Will continue to monitor.
[2024-02-05] MEDS: LOVENOX 40 MG SC (17:48)
[2024-02-05] MEDS: ZOLOFT 200 MG PO (22:15)
[2024-02-05] MEDS: SEROQUEL 200 MG PO (22:15)
[2024-02-06] MEDS: DILAUDID 0.5 MG IV ×6 (00:08→23:09)
[2024-02-06] MEDS: ROXICODONE 30 MG PO ×4 (02:43→21:03)
[2024-02-06 05:17] VITALS: BMI 25.9
[2024-02-06 07:24] VITALS: BP 98/61
[2024-02-06 08:31] LABS: % Basophils 0.7 % (0-2); % Eosinophils 2.6 % (0-6); % Immature Granulocytes 0.9 % (0-0.5); % Lymphocytes 19.2 % (20.5-51.1); % Monocytes 10.1 % (1.7-9.3); % Neutrophils 66.5 % (42.2-75.2); Absolute Eosinophils 0.2 10^3/uL (0-0.7); Absolute Immature Granulocytes 0.1 10^3/uL (0-0.05); Absolute Lymphocytes 1.1 10^3/uL (1.2-3.4); Absolute Monocytes 0.6 10^3/uL (0.1-0.6); Absolute Neutrophils 3.8 10^3/uL (1.4-6.5); Hematocrit 23.9 % (37.0-47.0); Mean Corp Hgb Conc. 33.5 g/dL (33.0-37.0); Mean Corpuscular Hgb 30.8 pg (27.0-31.0); Mean Corpuscular Volume 91.9 fL (81.0-99.0); Mean Platelet Volume 10.2 fL (7.4-10.4); Nucleated Red Blood Cells % 0 %; Platelet Count 118 10^3/uL (130-400); Red Cell Dist. Width 14.5 % (11.5-14.5); White Blood Cell Count 5.7 10^3/uL (4.8-10.8)
[2024-02-06] MEDS: DUPHALAC/CHRONULAC PO ×3 (08:39→21:02)
[2024-02-06] MEDS: LASIX 20 MG PO (08:43)
[2024-02-06] MEDS: DILANTIN 100 MG PO ×2 (08:43→20:25)
[2024-02-06] MEDS: LIDOCAINE 4% PATCH 2 PATCH TOPICAL (08:43)
[2024-02-06] MEDS: LYRICA 300 MG PO (08:44)
[2024-02-06] MEDS: PROTONIX 40 MG PO (08:44)
[2024-02-06] MEDS: OSCAL CAL 500 500 MG PO (08:44)
[2024-02-06] MEDS: PLAQUENIL 200 MG PO ×2 (08:44→20:25)
[2024-02-06] MEDS: XANAX 1.5 MG PO ×2 (08:44→16:37)
[2024-02-06] MEDS: FLUSH (NSS) 1 FLUSH IV (08:45)
[2024-02-06 08:59] LABS: ALT (SGPT) 15 U/L (0-35); AST (SGOT) 38 U/L (14-36); Albumin 2.5 g/dl (3.5-5.0); Alkaline Phosphatase 97 U/L (38-126); Blood Urea Nitrogen 4 mg/dl (7-17); Calcium 8.1 mg/dl (8.4-10.2); Carbon Dioxide 25 mmol/L (22-30); Chloride 106 mmol/L (98-107); Estimated Creatinine Clearance 93 ml/min; Glucose 91 mg/dl (70-99); Potassium 3.6 mmol/L (3.5-5.1); Sodium 136 mmol/L (135-145); Total Bilirubin 0.6 mg/dl (0.2-1.3); Total Protein 6.8 g/dl (6.3-8.2); eGFR > 60.00
--- NOTE | 2024-02-06 12:46 | W.PN.HOSP.TC ---
Today's Communication/Plan
-
Monitor vital signs and see plan
now has PICC line
cw abx
dc planning
pain control
Assessment / Plan
Assessment / Plan
Physical Exam
General: No pallor, cyanosis, or jaundice.
HEENT: Throat clear. PERRLA Normocephalic atraumatic
NECK: Supple. No JVD Carotid Bruits
RESPIRATORY: Lungs clear to auscultation. No crackles wheezes stridor
CVS: S1, S2 normal. RRR. No murmur, rub or gallop.
ABDOMEN: Soft, distended tender. decreased bowel sounds
EXTREMITIES: No peripheral cyanosis or edema.
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
58y F with PMH significant for Hep C s/p treatment, alcohol abuse and cirrhosis who presents to ED complaining of abdominal pain epigastric and RUQ areas
#Abdominal pain with CBD dilatation/leukocytosis
#Streptococcal bovis bacteremia
#possible Infectious discitis
Abd US noted moderate hepatic cirrhosis, small volume ascities, moderate splenomegaly 2/2 portal hyn, distended gallbladder and CBD duct
Urine drug screen positive opiates, oxycodone, benzos, barbiturates, tricyclic's
Lactic acid 2.1 resolved
Blood cultures positive for strep species, blood cultures repeated NGTD
ID following, continue antibiotics per ID,ceftriaxone 2g IV q24h through 03/14/24. s/p PICC line 02/04
pain control; lidocaine patch for back
Never had colonoscopy, given strep bovis recommend colonoscopy. GI following. Status post colonoscopy 02/04 with nonbleeding internal hemorrhoids, multiple polyps which were removed. Per GI appears precancerous. Patient will follow-up with GI
outpatient
MRI/MRCP appreciated
-mod biliary gallbladder dilatation, mild pancreactic ductal dilatation, possible obstructing stricture ampulla
-moderate hepatic cirrhosis
-Portal htn w/ mod to severe splenomegaly
-small ascites
-previous instrumentation L4/L5 possible acute infectious discitis
-lower lobes possible atelectasis vs pna (incentive spirometer ordered)
Status post EUS 02/01 consistent with portal hypertension gastropathy
IR attempted para 02/02 however not enough fluid
Hypokalemia
Resolved
CT abd/pelvis findings consistent with MRI
surgery eval appreciated; CA125 high, no surgical intervention recommended at this time.
#Chronic mild memory impairment-Per daughter ongoing since November [address] head: No evidence of acute intracranial hemorrhage or transcortical infarct. Mild diffuse cerebral and cerebellar volume loss
#History of cirrhosis
#Hep C-treated
#Hepatic encephalopathy confusion forgetfulness, asterixis
#Portal HTN
-Paracentesis x 2 November and mid December 2023
-Hold spironolactone 100 mg daily soft pressures
-continue Lasix 20 mg daily
-started lactulose 01/30, continue
#Chronic thrombocytopenia 2/2 cirrhosis
platelets stable
monitor
#Chronic anemia
monitor
#GERD
-Continue Prilosec, calcium carbonate
#Former alcohol abuse-stopped end of November 2023
#Drinks on weekends according to daughter
-Alcohol level negative Tylenol salicylate negative
#Rheumatoid arthritis/OA with chronic wrist deformities
#Chronic pain on chronic oral opiates
-hydroxychloroquine 200 mg twice daily
-Oxycodone 30 mg 4 times daily prn
-Patient on Fosamax monthly
#Seizure disorder
No seizure over 20 years
-Continue phenytoin 100 mg twice daily, Lyrica 300 mg daily
#Anxiety
-Patient on Xanax 2 mg 3 times daily switched to prn, reduced to 1.5 mg TIDPRN d/t concerns confusion cognitive memory issues.
#Depression
-Continue Zoloft 100 mg at bedtime, Seroquel 200 mg at bedtime
PT/OT SNF rehab
DVT prophylaxis Subcu Lovenox
Full code
Anticipated Discharge: Within 24 hours
Subjective/Interval History
-
Date of Service: February 06, 2024
has pain
Objective Data
-
Labs:
Laboratory Results
02/06/24
07:26
WBC 5.7
Hgb 8.0 L
Hct 23.9 L
Plt Count 118 L
Sodium 136
Potassium 3.6
Chloride 106
Carbon Dioxide 25
BUN 4 L
Creatinine 0.5 L
Glucose 91
Calcium 8.1 L
Total Bilirubin 0.6
AST 38 H
ALT 15
Alkaline Phosphatase 97
Vital Signs:
Vital Signs
Temp Pulse Resp BP Pulse Ox
98.1 F 73 18 104/58 95
02/06/24 07:24 02/06/24 08:43 02/06/24 07:24 02/06/24 08:43 02/06/24 09:00
I&O
02/05/24 02/06/24 02/07/24
06:59 06:59 06:59
Intake Total 480 / 480 1440 / 1440
Output Total 400 / 400
Balance 80 / 80 1440 / 1440
--- NOTE | 2024-02-06 13:33 | W.PN.ID1 ---
Date of Service
Date of Service: February 06, 2024
Today's Communication
-Follow-up with Dr. Ramirez in 3-4 weeks.
Assessment / Plan
# Streptococcal bovis bacteremia (2 sets 1 hour apart)
# Suspect L4/L5 discitis, HW infection with sxs acute on chronic back pain (see MRI report)
# Bile duct and pancreatic duct dilation - no obstruction found by ERCP
# Cirrhosis s/p hepatic decompensation.
# Alcohol abuse
- Repeat bcx's negative
- TTE no gross vegetation. No need for SANJIV as planning to treat x 6 weeks.
- ERCP/EUS no biliary duct obstruction
- For colonoscopy today
- Continue ceftriaxone 2g IV q24h through 03/14/24.
Follow weekly CBC/diff, CMP, CRP.
Infusion sheet submitted to shoe caser.
- Has PICC
-Follow-up with Dr. Ramirez in 3-4 weeks.
# Dispo: awaiting SNF placement
%Additional Past Medical History:
alcohol abuse
cirrhosis
Ascites
seizures
GERD
Hx hep C-treated in past
chronic low back pain/spinal stenosis on chronic opiates
depression/anxiety
OA
RA
Acne on chronic doxycycline
nicotine abuse
former IVDA
L4/L5 surgery with hardware
bilateral wrist fracture repair
B/L foot fx repair
Chief Complaint
-: Bacteremia
Subjective / Review of Systems
afebrile
bp stable
without leukocytosis
cr stable
colonoscopy multiple polys removed
Vital Signs / Physical Exam
Vital Signs
Vital Signs
Temp Pulse Resp BP Pulse Ox
98.1 F 73 18 104/58 95
02/06/24 07:24 02/06/24 08:43 02/06/24 07:24 02/06/24 08:43 02/06/24 09:00
Physical Exam
Constitutional: No Acute Distress
Cardiovascular: Regular Rate
Pulmonary: Symmetric and Non Labored
Gastrointestinal: Non Distended
Lines: PICC
Objective Data
Lab Data
Lab Results
02/06/24 07:26
02/06/24 07:26
PT 19.8 Sec (11.4-14.6) H 02/05/24 07:12
INR 1.70 02/05/24 07:12
Estimated Creat Clear 93 ml/min 02/06/24 07:26
Lactic Acid 1.4 mmol/L (0.7-2.0) 01/29/24 21:39
Total Bilirubin 0.6 mg/dl (0.2-1.3) 02/06/24 07:26
AST 38 U/L (14-36) H 02/06/24 07:26
ALT 15 U/L (0-35) 02/06/24 07:26
Alkaline Phosphatase 97 U/L (38-126) 02/06/24 07:26
C-Reactive Protein 63.10 mg/L (0.0-10.00) H 01/31/24 07:09
Most recent labs reviewed.
Micro Results:
01/30/24 10:14 Blood Culture - Final
Blood/Venous No Growth - Final Report
01/30/24 09:47 Blood Culture - Final
Blood/Venous No Growth - Final Report
01/29/24 18:12 Blood Culture - Final
Blood/Venous Streptococcus bovis
Gram Stain - Final
01/29/24 16:45 Blood Culture - Final
Blood/Venous Streptococcus bovis
Gram Stain - Final
01/30/24 04:58 MRSA Screen - Final
Nose No Methicillin Resistant Staphylococcus aureus isolated.
01/30/24 MRI abdomen: Moderate biliary dilatation, moderate gallbladder dilatation, and mild pancreatic ductal dilatation which appears increased from 01/22/2024 raising the possibility of an obstructing stricture at the ampulla. Previous bilateral
posterior instrumentation at L4/L5 with fluid signal in the intervertebral disc and adjacent bone marrow signal intensity changes in the superior endplate of L5 which appears new and raises the possibility of acute infectious discitis if there are
signs/symptoms of infection. Degenerative disease is an alternative diagnostic possibility.
01/29/24 ABD US: Small volume of upper abdominal ascites.MODERATE HEPATIC CIRRHOSIS. Moderate splenomegaly secondary to portal hypertension. Distended gallbladder and common bile duct.
[2024-02-06] MEDS: STERILE WATER FOR INJECTION 20 ML IV (13:37)
[2024-02-06] MEDS: ROCEPHIN 2000 MG IV (13:37)
--- NOTE | 2024-02-06 15:23 | PTOTSP ---
Pt refused PT 3 days in a row. Will follow up one more day then will sign off per protocol.
[2024-02-06 15:24] VITALS: BP 103/65
--- NOTE | 2024-02-06 15:48 | CHAP ---
Extended visit with Jenna, who has a lot of inner pain. She has a relationship with God and a strong spirit, which sustains her through her trials. Emotional and spiritual support provided.
[2024-02-06] MEDS: LOVENOX 40 MG SC (17:42)
[2024-02-06] MEDS: SEROQUEL 200 MG PO (21:02)
[2024-02-06] MEDS: ZOLOFT 200 MG PO (21:03)
[2024-02-06 23:50] VITALS: BP 91/60
[2024-02-07] MEDS: ROXICODONE 30 MG PO ×4 (03:39→22:54)
[2024-02-07 03:46] VITALS: BP 104/64
[2024-02-07 04:44] LABS: % Basophils 0.6 % (0-2); % Immature Granulocytes 0.6 % (0-0.5); % Lymphocytes 17.2 % (20.5-51.1); % Monocytes 9.3 % (1.7-9.3); % Neutrophils 69.3 % (42.2-75.2); Absolute Eosinophils 0.2 10^3/uL (0-0.7); Absolute Lymphocytes 1.1 10^3/uL (1.2-3.4); Absolute Monocytes 0.6 10^3/uL (0.1-0.6); Absolute Neutrophils 4.4 10^3/uL (1.4-6.5); Hematocrit 22.9 % (37.0-47.0); Hemoglobin 7.4 g/dL (12.0-16.0); Mean Corp Hgb Conc. 32.3 g/dL (33.0-37.0); Mean Corpuscular Hgb 30.3 pg (27.0-31.0); Mean Corpuscular Volume 93.9 fL (81.0-99.0); Mean Platelet Volume 10.4 fL (7.4-10.4); Nucleated Red Blood Cells % 0 %; Platelet Count 133 10^3/uL (130-400); Red Blood Cell Count 2.44 10^6/uL (4.20-5.40); Red Cell Dist. Width 14.6 % (11.5-14.5); White Blood Cell Count 6.3 10^3/uL (4.8-10.8)
[2024-02-07 05:14] LABS: ALT (SGPT) 14 U/L (0-35); AST (SGOT) 37 U/L (14-36); Albumin 2.6 g/dl (3.5-5.0); Alkaline Phosphatase 110 U/L (38-126); Blood Urea Nitrogen 7 mg/dl (7-17); Calcium 8.8 mg/dl (8.4-10.2); Carbon Dioxide 25 mmol/L (22-30); Chloride 105 mmol/L (98-107); Estimated Creatinine Clearance 93 ml/min; Glucose 98 mg/dl (70-99); Potassium 4.1 mmol/L (3.5-5.1); Sodium 133 mmol/L (135-145); Total Bilirubin 0.5 mg/dl (0.2-1.3); Total Protein 6.9 g/dl (6.3-8.2); eGFR > 60.00
[2024-02-07 06:00] VITALS: BMI 26.3
[2024-02-07] MEDS: DILAUDID 0.5 MG IV ×4 (06:28→18:52)
[2024-02-07 07:21] VITALS: BP 102/65
[2024-02-07] MEDS: DILANTIN 100 MG PO ×2 (08:01→20:00)
[2024-02-07] MEDS: PROTONIX 40 MG PO (08:02)
[2024-02-07] MEDS: XANAX 1.5 MG PO ×2 (08:02→17:37)
[2024-02-07] MEDS: PLAQUENIL 200 MG PO ×2 (08:02→20:00)
[2024-02-07] MEDS: LYRICA 300 MG PO (08:02)
[2024-02-07] MEDS: LASIX 20 MG PO (08:02)
[2024-02-07] MEDS: OSCAL CAL 500 500 MG PO (08:02)
[2024-02-07] MEDS: FLUSH (NSS) 1 FLUSH IV (08:04)
[2024-02-07] MEDS: LIDOCAINE 4% PATCH 2 PATCH TOPICAL (10:51)
--- NOTE | 2024-02-07 11:42 | W.PN.HOSP.TC ---
Today's Communication/Plan
-
Monitor vital signs and see plan
Auth pending per CM
Continue with antibiotics
Monitor hemoglobin
Assessment / Plan
Assessment / Plan
Physical Exam
General: No pallor, cyanosis, or jaundice.
HEENT: Throat clear. PERRLA Normocephalic atraumatic
NECK: Supple. No JVD Carotid Bruits
RESPIRATORY: Lungs clear to auscultation. No crackles wheezes stridor
CVS: S1, S2 normal. RRR. No murmur, rub or gallop.
ABDOMEN: Soft,non tender
EXTREMITIES: No peripheral cyanosis or edema.
WAFER SLICER: AOx3, some confusion forgetfullness
58y F with PMH significant for Hep C s/p treatment, alcohol abuse and cirrhosis who presents to ED complaining of abdominal pain epigastric and RUQ areas
#Abdominal pain with CBD dilatation/leukocytosis
#Streptococcal bovis bacteremia
#possible Infectious discitis
Abd US noted moderate hepatic cirrhosis, small volume ascities, moderate splenomegaly 2/2 portal hyn, distended gallbladder and CBD duct
Urine drug screen positive opiates, oxycodone, benzos, barbiturates, tricyclic's
Lactic acid 2.1 resolved
Blood cultures positive for strep species, blood cultures repeated NGTD
ID following, continue antibiotics per ID,ceftriaxone 2g IV q24h through 03/14/24. s/p PICC line 02/04
pain control; lidocaine patch for back
Never had colonoscopy, given strep bovis recommend colonoscopy. GI following. Status post colonoscopy 02/04 with nonbleeding internal hemorrhoids, multiple polyps which were removed. Per GI appears precancerous. Patient will follow-up with GI
outpatient
MRI/MRCP appreciated
-mod biliary gallbladder dilatation, mild pancreactic ductal dilatation, possible obstructing stricture ampulla
-moderate hepatic cirrhosis
-Portal htn w/ mod to severe splenomegaly
-small ascites
-previous instrumentation L4/L5 possible acute infectious discitis
-lower lobes possible atelectasis vs pna (incentive spirometer ordered)
Status post EUS 02/01 consistent with portal hypertension gastropathy
IR attempted para 02/02 however not enough fluid
Hypokalemia
Resolved
CT abd/pelvis findings consistent with MRI
surgery eval appreciated; CA125 high, no surgical intervention recommended at this time.
#Chronic mild memory impairment-Per daughter ongoing since November [address] head: No evidence of acute intracranial hemorrhage or transcortical infarct. Mild diffuse cerebral and cerebellar volume loss
#History of cirrhosis
#Hep C-treated
#Hepatic encephalopathy confusion forgetfulness, asterixis
#Portal HTN
-Paracentesis x 2 November and mid December 2023
-Hold spironolactone 100 mg daily soft pressures
-continue Lasix 20 mg daily
-started lactulose 01/30, continue
#Chronic thrombocytopenia 2/2 cirrhosis
platelets stable
monitor
#Chronic anemia
monitor
#GERD
-Continue Prilosec, calcium carbonate
#Former alcohol abuse-stopped end of November 2023
#Drinks on weekends according to daughter
-Alcohol level negative Tylenol salicylate negative
#Rheumatoid arthritis/OA with chronic wrist deformities
#Chronic pain on chronic oral opiates
-hydroxychloroquine 200 mg twice daily
-Oxycodone 30 mg 4 times daily prn
-Patient on Fosamax monthly
#Seizure disorder
No seizure over 20 years
-Continue phenytoin 100 mg twice daily, Lyrica 300 mg daily
#Anxiety
-Patient on Xanax 2 mg 3 times daily switched to prn, reduced to 1.5 mg TIDPRN d/t concerns confusion cognitive memory issues.
#Depression
-Continue Zoloft 100 mg at bedtime, Seroquel 200 mg at bedtime
PT/OT SNF rehab
DVT prophylaxis Subcu Lovenox
Full code
clear for dc; auth pending
Anticipated Discharge: Within 24 hours
Subjective/Interval History
-
Date of Service: February 07, 2024
Denies nausea
Objective Data
-
Labs:
Laboratory Results
02/07/24
04:22
WBC 6.3
Hgb 7.4 L
Hct 22.9 L
Plt Count 133
Sodium 133 L
Potassium 4.1
Chloride 105
Carbon Dioxide 25
BUN 7
Creatinine 0.5 L
Glucose 98
Calcium 8.8
Total Bilirubin 0.5
AST 37 H
ALT 14
Alkaline Phosphatase 110
Vital Signs:
Vital Signs
Temp Pulse Resp BP Pulse Ox
98.1 F 75 16 102/65 96
02/07/24 07:21 02/07/24 08:02 02/07/24 07:21 02/07/24 08:02 02/07/24 07:21
I&O
02/06/24 02/07/24 02/08/24
06:59 06:59 06:59
Intake Total 1440 / 1440 2440 / 2440
Balance 1440 / 1440 2440 / 2440
[2024-02-07 12:54] VITALS: BP 96/53; PULSE 71; O2SAT 97
[2024-02-07] MEDS: STERILE WATER FOR INJECTION 20 ML IV (13:10)
[2024-02-07] MEDS: DUPHALAC/CHRONULAC 20 GRAMS PO (13:10)
[2024-02-07] MEDS: ROCEPHIN 2000 MG IV (13:10)
[2024-02-07 15:07] VITALS: BP 111/48
--- NOTE | 2024-02-07 15:52 | CM ---
referral sent to [facility] for auth [facility] via [employer]. faxed clinical to /reference number [id number]. update given to admissions at [facility].
[facility] accepted for transfer to SNF thursday pending auth.
[2024-02-07] MEDS: DUPHALAC/CHRONULAC PO ×2 (16:17→22:57)
[2024-02-07] MEDS: LOVENOX SC (17:40)
[2024-02-07 17:59] LABS: Hematocrit 21.4 % (37.0-47.0); Hemoglobin 7.3 g/dL (12.0-16.0)
[2024-02-07 18:30] VITALS: BP 112/74
--- NOTE | 2024-02-07 18:45 | PTCARENOTE ---
Pt reported at 1515 with BM after Lactulose that she had blood in stool. RN did not see BM prior to pt flushing. Requested that pt use commode so RN can see stool/blood. Pt had another BM (small amount) on commode with blood tinged soon after
initial one. BP 111/48, HR 75 at that time. Pt asymptomatic. Made Dr Berry aware of above. He ordered H&H at 1700.
Updated [address] Velázquez at 1830 of pt having a total of 3 BMs, last BM having a moderate amount of blood in it. H&H came back at 7.3/21.4. (Hgb 7.4 this am). Pt still remains asymptomatic. BP at 1830 112/74, HR 75. Dr. Velázquez ordered NPO except meds, and
changed Protonix po to Protonix 40mg IV BID. Updated pt and oncoming shift mechanic nurse of plan.
[2024-02-07] MEDS: PROTONIX IV 40 MG IV (20:01)
[2024-02-07] MEDS: NSS (PRESERVATIVE FREE) 10 ML IV (20:01)
[2024-02-07] MEDS: SEROQUEL 200 MG PO (21:17)
[2024-02-07] MEDS: ZOLOFT 200 MG PO (21:17)
[2024-02-07 23:39] VITALS: BP 97/58
[2024-02-08 03:58] VITALS: BP 109/90
[2024-02-08 05:19] LABS: % Basophils 0.7 % (0-2); % Eosinophils 2.5 % (0-6); % Immature Granulocytes 0.7 % (0-0.5); % Lymphocytes 18.5 % (20.5-51.1); % Monocytes 9.3 % (1.7-9.3); % Neutrophils 68.3 % (42.2-75.2); Absolute Eosinophils 0.1 10^3/uL (0-0.7); Absolute Monocytes 0.5 10^3/uL (0.1-0.6); Absolute Neutrophils 3.8 10^3/uL (1.4-6.5); Hematocrit 21.8 % (37.0-47.0); Hemoglobin 7.1 g/dL (12.0-16.0); Mean Corp Hgb Conc. 32.6 g/dL (33.0-37.0); Mean Corpuscular Hgb 30.6 pg (27.0-31.0); Nucleated Red Blood Cells % 0 %; Platelet Count 125 10^3/uL (130-400); Red Blood Cell Count 2.32 10^6/uL (4.20-5.40); Red Cell Dist. Width 14.9 % (11.5-14.5); White Blood Cell Count 5.6 10^3/uL (4.8-10.8)
[2024-02-08 05:53] LABS: ALT (SGPT) 13 U/L (0-35); AST (SGOT) 34 U/L (14-36); Albumin 2.6 g/dl (3.5-5.0); Alkaline Phosphatase 97 U/L (38-126); Blood Urea Nitrogen 11 mg/dl (7-17); Calcium 8.8 mg/dl (8.4-10.2); Carbon Dioxide 26 mmol/L (22-30); Chloride 107 mmol/L (98-107); Estimated Creatinine Clearance 93 ml/min; Glucose 96 mg/dl (70-99); Potassium 4.2 mmol/L (3.5-5.1); Sodium 136 mmol/L (135-145); Total Bilirubin 0.4 mg/dl (0.2-1.3); Total Protein 6.9 g/dl (6.3-8.2); eGFR > 60.00
--- NOTE | 2024-02-08 05:54 | PTCARENOTE ---
Last time pt took pain medicine was Tram 30mg at 2254. Pt was observed sleeping throughout the night without asking for pain medecine. Checking on the pt this morning and if her pain is manageable. Pt states that she is fine and declines pain
medicine at this time. Advise the pt to call before change of the shift if she feels she needs pain medication to avoid waiting while nursing are giving reports. Pt agreeable, Will follow.
[2024-02-08 06:00] VITALS: BMI 25.1
--- NOTE | 2024-02-08 06:20 | PTCARENOTE ---
Pt had no stools, or bloody stools throughout the night. Pt refused her HS lactulose.
--- NOTE | 2024-02-08 06:30 | W.PN.HOSP.TC ---
Today's Communication/Plan
-
monitor H&H
GI re-eval
cont abx
discharge planning
Assessment / Plan
Assessment / Plan
Physical Exam
General: No pallor, cyanosis, or jaundice.
HEENT: Throat clear. PERRLA Normocephalic atraumatic
NECK: Supple. No JVD Carotid Bruits
RESPIRATORY: Lungs clear to auscultation. No crackles wheezes stridor
CVS: S1, S2 normal. RRR. No murmur, rub or gallop.
ABDOMEN: Soft,non tender
EXTREMITIES: No peripheral cyanosis or edema.
CABLE SWAGER: AOx3, some confusion forgetfullness
58y F with PMH significant for Hep C s/p treatment, alcohol abuse and cirrhosis who presents to ED complaining of abdominal pain epigastric and RUQ areas
#Abdominal pain with CBD dilatation/leukocytosis
#Streptococcal bovis bacteremia
#possible Infectious discitis
Abd US noted moderate hepatic cirrhosis, small volume ascities, moderate splenomegaly 2/2 portal hyn, distended gallbladder and CBD duct
Urine drug screen positive opiates, oxycodone, benzos, barbiturates, tricyclic's
Lactic acid 2.1 resolved
Blood cultures positive for strep species, blood cultures repeated NGTD
ID following, continue antibiotics per ID,ceftriaxone 2g IV q24h through 03/14/24. s/p PICC line 02/04
pain control; lidocaine patch for back
Never had colonoscopy, given strep bovis recommended colonoscopy. GI following. Status post colonoscopy 02/04 with nonbleeding internal hemorrhoids, multiple polyps which were removed. Per GI appears precancerous. Patient will follow-up with GI
outpatient
02/07 GI re-eval requested d/t concern polypectomy bleed with H&H trending down since colonoscopy and bloody bowel movements, Vital signs otherwise remain stable
MRI/MRCP appreciated
-mod biliary gallbladder dilatation, mild pancreactic ductal dilatation, possible obstructing stricture ampulla
-moderate hepatic cirrhosis
-Portal htn w/ mod to severe splenomegaly
-small ascites
-previous instrumentation L4/L5 possible acute infectious discitis
-lower lobes possible atelectasis vs pna (incentive spirometer ordered)
Status post EUS 02/01 consistent with portal hypertension gastropathy
IR attempted para 02/02 however not enough fluid
Abd US repeated 02/07 also noted small ascites.
Hypokalemia
Resolved
CT abd/pelvis findings consistent with MRI
surgery eval appreciated; CA125 high, no surgical intervention recommended at this time.
#Chronic mild memory impairment-Per daughter ongoing since November [address] head: No evidence of acute intracranial hemorrhage or transcortical infarct. Mild diffuse cerebral and cerebellar volume loss
#History of cirrhosis
#Hep C-treated
#Hepatic encephalopathy confusion forgetfulness, asterixis
#Portal HTN
-Paracentesis x 2 November and mid December 2023
-Hold spironolactone 100 mg daily soft pressures
-continue Lasix 20 mg daily
-started lactulose 01/30, continue
#Chronic thrombocytopenia 2/2 cirrhosis
platelets stable
monitor
#Chronic anemia
monitor
#GERD
-Continue Prilosec, calcium carbonate
#Former alcohol abuse-stopped end of November 2023
#Drinks on weekends according to daughter
-Alcohol level negative Tylenol salicylate negative
#Rheumatoid arthritis/OA with chronic wrist deformities
#Chronic pain on chronic oral opiates
-hydroxychloroquine 200 mg twice daily
-Oxycodone 30 mg 4 times daily prn
-Patient on Fosamax monthly
#Seizure disorder
No seizure over 20 years
-Continue phenytoin 100 mg twice daily, Lyrica 300 mg daily
#Anxiety
-Patient on Xanax 2 mg 3 times daily switched to prn, reduced to 1.5 mg TIDPRN d/t concerns confusion cognitive memory issues. Tolerating well
#Depression
-Continue Zoloft 100 mg at bedtime, Seroquel 200 mg at bedtime
PT/OT SNF rehab
DVT prophylaxis Subcu Lovenox
Full code
I spent a total of 55 minutes with the patient or on the floor. More than 50% of this time involved counseling and coordination of care.
Anticipated Discharge: 24 - 48 hours
Subjective/Interval History
-
Date of Service: February 08, 2024
Reports resolution of bloody bowel movements but also reports no bowel movements since yesterday. reports feeling abd more distended
Objective Data
-
Labs:
Laboratory Results
02/08/24
04:28
WBC 5.6
Hgb 7.1 L
Hct 21.8 L
Plt Count 125 L
Sodium 136
Potassium 4.2
Chloride 107
Carbon Dioxide 26
BUN 11
Creatinine 0.6
Glucose 96
Calcium 8.8
Total Bilirubin 0.4
AST 34
ALT 13
Alkaline Phosphatase 97
Vital Signs:
Vital Signs
Temp Pulse Resp BP Pulse Ox
98.4 F 61 16 109/90 97
02/07/24 23:39 02/08/24 03:58 02/07/24 23:39 02/08/24 03:58 02/07/24 23:39
I&O
02/06/24 02/07/24 02/08/24
06:59 06:59 06:59
Intake Total 1440 / 1440 2440 / 2440 570 / 570
Balance 1440 / 1440 2440 / 2440 570 / 570
[2024-02-08 07:30] VITALS: BP 102/55
[2024-02-08] MEDS: LIDOCAINE 4% PATCH 2 PATCH TOPICAL (09:13)
[2024-02-08] MEDS: PLAQUENIL 200 MG PO ×2 (09:14→19:41)
[2024-02-08] MEDS: LASIX 20 MG PO (09:14)
[2024-02-08] MEDS: LYRICA 300 MG PO (09:14)
[2024-02-08] MEDS: DILANTIN 100 MG PO ×2 (09:15→19:37)
[2024-02-08] MEDS: OSCAL CAL 500 500 MG PO (09:15)
[2024-02-08] MEDS: NSS (PRESERVATIVE FREE) 10 ML IV ×2 (09:15→19:38)
[2024-02-08] MEDS: PROTONIX IV 40 MG IV ×2 (09:15→19:38)
[2024-02-08] MEDS: DILAUDID 0.5 MG IV ×3 (09:17→20:33)
[2024-02-08] MEDS: DUPHALAC/CHRONULAC PO ×3 (09:34→21:24)
[2024-02-08] MEDS: ROCEPHIN 2000 MG IV (11:59)
[2024-02-08] MEDS: STERILE WATER FOR INJECTION 20 ML IV (12:00)
[2024-02-08] MEDS: ROXICODONE 30 MG PO ×2 (12:08→19:41)
--- NOTE | 2024-02-08 13:18 | W.PN.ID1 ---
Date of Service
Date of Service: February 08, 2024
Today's Communication
Continue ceftriaxone 2g IV q24h through 03/14/24.
Assessment / Plan
# Streptococcal bovis bacteremia (2 sets 1 hour apart)
# Suspect L4/L5 discitis, HW infection with sxs acute on chronic back pain (see MRI report)
# Bile duct and pancreatic duct dilation - no obstruction found by ERCP
# Cirrhosis s/p hepatic decompensation.
# Alcohol abuse
- Repeat bcx's negative
- TTE no gross vegetation. No need for SANJIV as planning to treat x 6 weeks.
- ERCP/EUS no biliary duct obstruction
- 02/05/24 colonoscopy - multiple polyps resected. Path pending.
- Continue ceftriaxone 2g IV q24h through 03/14/24.
Follow weekly CBC/diff, CMP, CRP.
Infusion sheet submitted to rehabilitation case coordinator.
- Has PICC
-Follow-up with Dr. Ramirez in 3-4 weeks.
# Dispo: awaiting SNF placement
%Additional Past Medical History:
alcohol abuse
cirrhosis
Ascites
seizures
GERD
Hx hep C-treated in past
chronic low back pain/spinal stenosis on chronic opiates
depression/anxiety
OA
RA
Acne on chronic doxycycline
nicotine abuse
former IVDA
L4/L5 surgery with hardware
bilateral wrist fracture repair
B/L foot fx repair
Chief Complaint
-: Bacteremia
Subjective / Review of Systems
c/o being NPO. She is hungry. Back pain better.
Vital Signs / Physical Exam
Vital Signs
Vital Signs
Temp Pulse Resp BP Pulse Ox
98.5 F 68 18 110/60 95
02/08/24 07:30 02/08/24 09:14 02/08/24 07:30 02/08/24 09:14 02/08/24 09:30
Physical Exam
Constitutional: No Acute Distress and Comfortable
Cardiovascular: Regular Rate and S1/S2
Pulmonary: Clear
Gastrointestinal: Soft, Non Tender and Non Distended
Musculoskeletal: Spinal Tenderness (Decreased tenderness over right lower lumbar)
Neurological: AO x 3
Lines: PICC (RUE no erythema)
Objective Data
Lab Data
Lab Results
02/08/24 04:28
02/08/24 04:28
PT 19.8 Sec (11.4-14.6) H 02/05/24 07:12
INR 1.70 02/05/24 07:12
Estimated Creat Clear 93 ml/min 02/08/24 04:28
Lactic Acid 1.4 mmol/L (0.7-2.0) 01/29/24 21:39
Total Bilirubin 0.4 mg/dl (0.2-1.3) 02/08/24 04:28
AST 34 U/L (14-36) 02/08/24 04:28
ALT 13 U/L (0-35) 02/08/24 04:28
Alkaline Phosphatase 97 U/L (38-126) 02/08/24 04:28
C-Reactive Protein 63.10 mg/L (0.0-10.00) H 01/31/24 07:09
Most recent labs reviewed.
Micro Results:
01/30/24 10:14 Blood Culture - Final
Blood/Venous No Growth - Final Report
01/30/24 09:47 Blood Culture - Final
Blood/Venous No Growth - Final Report
01/29/24 18:12 Blood Culture - Final
Blood/Venous Streptococcus bovis
Gram Stain - Final
01/29/24 16:45 Blood Culture - Final
Blood/Venous Streptococcus bovis
Gram Stain - Final
01/30/24 04:58 MRSA Screen - Final
Nose No Methicillin Resistant Staphylococcus aureus isolated.
01/30/24 MRI abdomen: Moderate biliary dilatation, moderate gallbladder dilatation, and mild pancreatic ductal dilatation which appears increased from 01/22/2024 raising the possibility of an obstructing stricture at the ampulla. Previous bilateral
posterior instrumentation at L4/L5 with fluid signal in the intervertebral disc and adjacent bone marrow signal intensity changes in the superior endplate of L5 which appears new and raises the possibility of acute infectious discitis if there are
signs/symptoms of infection. Degenerative disease is an alternative diagnostic possibility.
01/29/24 ABD US: Small volume of upper abdominal ascites.MODERATE HEPATIC CIRRHOSIS. Moderate splenomegaly secondary to portal hypertension. Distended gallbladder and common bile duct.
Care Review
Plan reviewed with: Physician (Dr. Leija)
[2024-02-08] MEDS: XANAX 1.5 MG PO ×2 (14:02→19:41)
[2024-02-08 15:19] VITALS: BP 92/54
[2024-02-08 15:47] LABS: Hemoglobin 7.3 g/dL (12.0-16.0)
--- NOTE | 2024-02-08 16:27 | CM ---
CM received message from [employer] noting clinicals were 'misrouted department' per fax letter
Call with [employer] to obtain fax# for clinicals
Clinicals refaxed [phone]- fax confirmation sheet obtained
Auth still pending
Discharge Disposition- [facility] with IV abx pending [employer] auth
--- NOTE | 2024-02-08 16:53 | W.PN.GI.CBS2 ---
Addendum entered and electronically signed by Kathryn Parker Do, MD 02/08/24 21:04:
I saw and examined the patient.
The PHYSICAL THERAPY NURSE's note was reviewed and I agree with the note.
Comment: Was asked to re-eval patient for anemia. Post colonoscopy on thursday after 12 polypectomies she had scant red in her stools. However no BMs or further bleeding seen since Thursday. She is tolerating diet. She feels abdomen more distended
and requesting paracentesis. Vitals stable, on exam pale appearance, obese mild distension of abdomen. rectal with yellow stool external hemorrhoids seen. Labs H/H in 7 range over the past 3 days.
She is current with EGD/EUS/colon already done on this admission without varices. Portal HTN gastropathy may be contributor to anemia. Do not suspect post polypectomy bleeding as no further BRBPR or rectal bleeding since Thursday. Stool on DAYNA today
yellow
Recommendations
- No repeat scopes as current with EGD/EUS/Colon on this admission
- Trend H/H and stool output
- Paracentesis for comfort tomorrow
- She has FU with Dr Lafleur this Thursday in our office
- Continue ETOH abstinence
Will follow with you
Original Note:
Today's Communication / Plan
-
asked to reassess for drop in hbg with some red blood 02/06
today current rectal exam no blood seen
pt with progressive drop 12.9 in 2021, 11.7 05/2023, 01/29/24 10.0, 02/03/24-8.5, 02/08/24- 7.1
cont to trend do not overtransfuse-- no transfusions given this admission
recent EGD/colon completed this admission -- no signs of active GI bleeding
will reconsult IR to see if any fluid to drain with distention
cont Lactulose TID
cont abx per ID
trend labs
ETOH abstinence
Assessment / Plan
-
Pt is a 58-year-old female with a past medical history significant for decompensated alcoholic liver cirrhosis newly diagnosed in November, history of hep C with treatment with interferon in ribavirin in 1998, GERD, seizure disorder on Dilantin,
chronic doxycycline for acne, history of IV drug abuse, depression, anxiety, chronic opiates secondary to spinal stenosis, who presented to the emergency room with complaints of mid epigastric pain and right upper quadrant pain. abnormal ultrasound
concerning for cholecystitis with CBD dilation and known history of decompensated liver cirrhosis. LFTs are not significantly elevated to suggest cholangitis or acute biliary obstruction but with CBD findings cannot rule this out. Since admission
completed EUS and also noted strep bovis bacteremia. She completed EGD
02/01 EUS/EGD -no varices in entire esophagus
Portal hypertensive gastropathy.
- Normal duodenal bulb, first portion of the duodenum
and second portion of the duodenum.
- Ascites was found on endosonographic examination of
the peritoneal cavity.
- Pancreatic parenchymal abnormalities consisting of
hyperechoic strands and hyperechoic foci were noted in
the pancreatic head and pancreatic body.
- Main pancreatic duct (MPD) diameter was measured.
Endosonographically, the MPD had a normal appearance.
- There was dilation in the common bile duct which
measured up to 8 mm.
- There was no sign of significant pathology in the
ampulla.
- Three enlarged lymph nodes were visualized in the
celine hepatis region.
- No specimens collected.
02/04- colonoscopy fair prep, hemorrhoids, multiple TA polyp removed, diverticulosis, non bleeding internal hemorrhoids
-- -Echocardiogram was done on 02/01/2024 no evidence of vegetation. This was not a SANJIV
Problem list:
-anemia
-Abdominal pain
-abdominal distention
-strep bovis bacteremia
-suspected discitis with back pain
-CBD dilation s/p EUS
-?cholecystitis with CBD dilation and distended gallbladder, no cholelithiasis
-Decompensated alcoholic liver cirrhosis with ascites, MELD-Na 17
-Elevated ammonia level with mild HE in setting of bacteremia
-Leukocytosis- resolved
-History of hepatitis C with treatment
Other current medical history:
-Seizure disorder on Dilantin
-GERD
-History of IV drug use
-Anxiety/depression
-Spinal stenosis on chronic opiates
PLAN:
asked to reassess for drop in hbg with some red blood 02/06
today current rectal exam no blood seen
pt with progressive drop 12.9 in 2021, 11.7 05/2023, 01/29/24 10.0, 02/03/24-8.5, 02/08/24- 7.1
cont to trend do not overtransfuse-- no transfusions given this admission
recent EGD/colon completed this admission -- no signs of active GI bleeding
will reconsult IR to see if any fluid to drain with distention
cont Lactulose TID
cont abx per ID
trend labs
ETOH abstinence
Subjective
Subjective
Date of Service: February 08, 2024
asked to reassess for anemia tolerating diet, feeling some distention since admission 02/06 blood in stools recorded by nursing
Objective
Data Reviewed
Laboratory Data:
Laboratory Results
02/08/24 15:34
02/08/24 04:28
Laboratory Results
PT 19.8 Sec (11.4-14.6) H 02/05/24 07:12
INR 1.70 02/05/24 07:12
Magnesium 1.4 mg/dl (1.6-2.3) L 01/29/24 16:45
Total Bilirubin 0.4 mg/dl (0.2-1.3) 02/08/24 04:28
AST 34 U/L (14-36) 02/08/24 04:28
ALT 13 U/L (0-35) 02/08/24 04:28
Alkaline Phosphatase 97 U/L (38-126) 02/08/24 04:28
Lipase 31 U/L (23-300) 01/29/24 16:45
Vital Signs and I&O:
Vital Signs
Temp Pulse Resp BP Pulse Ox
97.7 F 74 18 92/54 92
02/08/24 15:19 02/08/24 15:19 02/08/24 15:19 02/08/24 15:19 02/08/24 15:19
I&O
02/07/24 02/08/24 02/09/24
06:59 06:59 06:59
Intake Total 2440 / 2440 690 / 690
Balance 2440 / 2440 690 / 690
Physical Exam
Physical Exam
HEENT: Anicteric, Moist mucous membranes and Other (pale appearing)
Cardiology: Normal Sinus Rhythm
Pulmonary: Clear
GI: Soft, Distended, Tender and Normal Bowel Sounds
Rectal: Other (per DrEnzo Do no blood, yellow tinged stool)
Extremities: No Edema
Neuro: Non Focal
[2024-02-08] MEDS: LOVENOX 40 MG SC (17:44)
--- NOTE | 2024-02-08 21:06 | W.PN.UPDATE ---
Update Note
Progress Note Update
Billing purposes
[2024-02-08] MEDS: SEROQUEL 200 MG PO (21:30)
[2024-02-08] MEDS: ZOLOFT 200 MG PO (21:30)
[2024-02-08 23:55] VITALS: BP 96/55
[2024-02-09] MEDS: XANAX 1.5 MG PO ×3 (03:08→19:34)
[2024-02-09] MEDS: DILAUDID 0.5 MG IV ×5 (03:09→23:55)
[2024-02-09 04:45] LABS: Hematocrit 22.4 % (37.0-47.0); Hemoglobin 7.2 g/dL (12.0-16.0); Mean Corp Hgb Conc. 32.1 g/dL (33.0-37.0); Mean Corpuscular Hgb 30.6 pg (27.0-31.0); Mean Corpuscular Volume 95.3 fL (81.0-99.0); Mean Platelet Volume 10.2 fL (7.4-10.4); Platelet Count 161 10^3/uL (130-400); Red Blood Cell Count 2.35 10^6/uL (4.20-5.40); Red Cell Dist. Width 15.2 % (11.5-14.5); White Blood Cell Count 4.7 10^3/uL (4.8-10.8)
[2024-02-09 05:06] LABS: Blood Urea Nitrogen 12 mg/dl (7-17); Calcium 8.8 mg/dl (8.4-10.2); Carbon Dioxide 29 mmol/L (22-30); Chloride 105 mmol/L (98-107); Estimated Creatinine Clearance 93 ml/min; Glucose 95 mg/dl (70-99); Magnesium 1.6 mg/dl (1.6-2.3); Phosphorus 4.5 mg/dl (2.5-4.5); Potassium 3.7 mmol/L (3.5-5.1); Sodium 139 mmol/L (135-145); eGFR > 60.00
[2024-02-09 06:00] VITALS: BMI 25.2
[2024-02-09] MEDS: ROXICODONE 30 MG PO ×3 (06:01→18:20)
[2024-02-09 07:00] VITALS: BP 96/44
[2024-02-09 07:58] LABS: Iron 43 ug/dl (37-170)
--- NOTE | 2024-02-09 07:58 | W.PN.HOSP.TC ---
Today's Communication/Plan
-
Monitor H&H
cont abx
PT/OT
pain control
Assessment / Plan
Assessment / Plan
Physical Exam
General: No pallor, cyanosis, or jaundice.
HEENT: Throat clear. PERRLA Normocephalic atraumatic
NECK: Supple. No JVD Carotid Bruits
RESPIRATORY: Lungs clear to auscultation. No crackles wheezes stridor
CVS: S1, S2 normal. RRR. No murmur, rub or gallop.
ABDOMEN: Soft,non tender
EXTREMITIES: No peripheral cyanosis or edema.
ROAD ENGINEER: AOx3
58y F with PMH significant for Hep C s/p treatment, alcohol abuse and cirrhosis who presents to ED complaining of abdominal pain epigastric and RUQ areas
#Abdominal pain with CBD dilatation/leukocytosis
#Streptococcal bovis bacteremia
#possible Infectious discitis
Abd US noted moderate hepatic cirrhosis, small volume ascities, moderate splenomegaly 2/2 portal hyn, distended gallbladder and CBD duct
Urine drug screen positive opiates, oxycodone, benzos, barbiturates, tricyclic's
Lactic acid 2.1 resolved
Blood cultures positive for strep species, blood cultures repeated NGTD
ID following, continue antibiotics per ID,ceftriaxone 2g IV q24h through 03/14/24. s/p PICC line 02/04
pain control; lidocaine patch for back
Never had colonoscopy, given strep bovis recommended colonoscopy. GI following. Status post colonoscopy 02/04 with nonbleeding internal hemorrhoids, multiple polyps which were removed. Per GI appears precancerous. Patient will follow-up with GI
outpatient
02/07 GI re-eval requested d/t concern polypectomy bleed with H&H trending down since colonoscopy and bloody bowel movements, Vital signs otherwise remain stable
02/08 GI eval appreciated Hgb stable in 7 range, anemia likely d/t chronic liver dz bone marrow suppression no need for repeat EGD/Colonoscopy or capsule endoscopy at this time, recommended to cont with scheduled outpatient GI follow up with Dr
Protano 03/24
MRI/MRCP appreciated
-mod biliary gallbladder dilatation, mild pancreactic ductal dilatation, possible obstructing stricture ampulla
-moderate hepatic cirrhosis
-Portal htn w/ mod to severe splenomegaly
-small ascites
-previous instrumentation L4/L5 possible acute infectious discitis
-lower lobes possible atelectasis vs pna (incentive spirometer ordered)
Status post EUS 02/01 consistent with portal hypertension gastropathy
IR attempted para 02/02 however not enough fluid
Abd US repeated 02/07 also noted small ascites
IR eval appreciated 02/08 not enough for paracentesis.
Hypokalemia
Resolved
CT abd/pelvis findings consistent with MRI
surgery eval appreciated; CA125 high, no surgical intervention recommended at this time.
#Chronic mild memory impairment-Per daughter ongoing since November [address] head: No evidence of acute intracranial hemorrhage or transcortical infarct. Mild diffuse cerebral and cerebellar volume loss
#History of cirrhosis
#Hep C-treated
#Hepatic encephalopathy confusion forgetfulness, asterixis
#Portal HTN
-Paracentesis x 2 November and mid December 2023
-Hold spironolactone 100 mg daily soft pressures
-continue Lasix 20 mg daily
-started lactulose 01/30, continue
#Chronic thrombocytopenia 2/2 cirrhosis
platelets stable
monitor
#Chronic anemia
monitor
#GERD
-Continue Prilosec, calcium carbonate
#Former alcohol abuse-stopped end of November 2023
#Drinks on weekends according to daughter
-Alcohol level negative Tylenol salicylate negative
#Rheumatoid arthritis/OA with chronic wrist deformities
#Chronic pain on chronic oral opiates
-hydroxychloroquine 200 mg twice daily
-Oxycodone 30 mg 4 times daily prn
-Patient on Fosamax monthly
#Seizure disorder
No seizure over 20 years
-Continue phenytoin 100 mg twice daily, Lyrica 300 mg daily
#Anxiety
-Patient on Xanax 2 mg 3 times daily switched to prn, reduced to 1.5 mg TIDPRN d/t concerns confusion cognitive memory issues. Tolerating well
#Depression
-Continue Zoloft 100 mg at bedtime, Seroquel 200 mg at bedtime
PT/OT SNF rehab
DVT prophylaxis Subcu Lovenox
Full code
I spent a total of 55 minutes with the patient or on the floor. More than 50% of this time involved counseling and coordination of care.
Anticipated Discharge: 24 - 48 hours
Subjective/Interval History
-
Date of Service: February 09, 2024
No acute distress appears comfortable at this time. Denies further bloody bowel movements but no bowel movements in 2 days.
Objective Data
-
Labs:
Laboratory Results
02/09/24
04:24
WBC 4.7 L
Hgb 7.2 L
Hct 22.4 L
Plt Count 161 D
Sodium 139
Potassium 3.7
Chloride 105
Carbon Dioxide 29
BUN 12
Creatinine 0.6
Glucose 95
Calcium 8.8
Vital Signs:
Vital Signs
Temp Pulse Resp BP Pulse Ox
98.1 F 68 16 96/44 96
02/09/24 07:00 02/09/24 07:00 02/09/24 07:00 02/09/24 07:00 02/09/24 07:00
I&O
02/08/24 02/09/24 02/10/24
06:59 06:59 06:59
Intake Total 690 / 690 900 / 900
Balance 690 / 690 900 / 900
[2024-02-09 08:08] LABS: Percent Saturation 15 % (20-50); Total Iron Binding Capacity 272 ug/dl (265-497)
[2024-02-09 08:50] VITALS: BP 110/70; BP_SYST 66
[2024-02-09] MEDS: DUPHALAC/CHRONULAC PO ×3 (09:00→21:03)
[2024-02-09] MEDS: DILANTIN 100 MG PO ×2 (09:24→19:37)
[2024-02-09] MEDS: LYRICA 300 MG PO (09:24)
[2024-02-09] MEDS: LASIX 20 MG PO (09:24)
[2024-02-09] MEDS: OSCAL CAL 500 500 MG PO (09:25)
[2024-02-09] MEDS: PLAQUENIL 200 MG PO ×2 (09:25→19:37)
[2024-02-09] MEDS: PROTONIX IV 40 MG IV ×2 (09:26→19:38)
[2024-02-09] MEDS: NSS (PRESERVATIVE FREE) 10 ML IV ×2 (09:26→19:38)
[2024-02-09] MEDS: LIDOCAINE 4% PATCH 2 PATCH TOPICAL (09:26)
[2024-02-09 11:06] LABS: Vitamin B12 995 pg/ml (239-931)
--- NOTE | 2024-02-09 11:38 | W.PN.GI.CBS2 ---
Addendum entered and electronically signed by Grayson Alba MD 02/09/24 14:08:
I saw and examined the patient.
The TRUCK WASHER or PA's note was reviewed and I agree with the note.
Comment: No complaints
ABD soft NT
REC:
Hgb has been stable in the 7 range. Her anemia is likely due to her chronic liver dz, bone marrow suppression
No need to repeat EGD/colon (done this admission) or capsule endoscopy at this time
Keep f/u appt with Dr Watkins 03/24
Will sign off.
Original Note:
Today's Communication / Plan
-
hbg remain stable at 7 range since 02/06 with no signs of active GI bleeding or bruising-- rectal exam 02/07 yellow stool
pt with progressive drop 12.9 in 2021, 11.7 05/2023, 01/29/24 10.0, 02/03/24-8.5, 02/08/24- 7.1
may be bone marrow suppression with hx ETOH use and cirrhosis
cont to trend do not overtransfuse-- no transfusions given this admission
recent EGD/colon completed this admission
no fluid to drain for para today
cont Lactulose TID
cont abx per ID
trend labs
ETOH abstinence
Pt is schedule 03/[address] Watkins
will sign off call with questions
Assessment / Plan
-
Pt is a 58-year-old female with a past medical history significant for decompensated alcoholic liver cirrhosis newly diagnosed in November, history of hep C with treatment with interferon in ribavirin in 1998, GERD, seizure disorder on Dilantin,
chronic doxycycline for acne, history of IV drug abuse, depression, anxiety, chronic opiates secondary to spinal stenosis, who presented to the emergency room with complaints of mid epigastric pain and right upper quadrant pain. abnormal ultrasound
concerning for cholecystitis with CBD dilation and known history of decompensated liver cirrhosis. LFTs are not significantly elevated to suggest cholangitis or acute biliary obstruction but with CBD findings cannot rule this out. Since admission
completed EUS and also noted strep bovis bacteremia. She completed EGD
02/01 EUS/EGD -no varices in entire esophagus
Portal hypertensive gastropathy.
- Normal duodenal bulb, first portion of the duodenum
and second portion of the duodenum.
- Ascites was found on endosonographic examination of
the peritoneal cavity.
- Pancreatic parenchymal abnormalities consisting of
hyperechoic strands and hyperechoic foci were noted in
the pancreatic head and pancreatic body.
- Main pancreatic duct (MPD) diameter was measured.
Endosonographically, the MPD had a normal appearance.
- There was dilation in the common bile duct which
measured up to 8 mm.
- There was no sign of significant pathology in the
ampulla.
- Three enlarged lymph nodes were visualized in the
celine hepatis region.
- No specimens collected.
02/04- colonoscopy fair prep, hemorrhoids, multiple TA polyp removed, diverticulosis, non bleeding internal hemorrhoids
-- -Echocardiogram was done on 02/01/2024 no evidence of vegetation. This was not a SANJIV
Problem list:
-anemia
-Abdominal pain
-abdominal distention
-strep bovis bacteremia
-suspected discitis with back pain
-CBD dilation s/p EUS
-?cholecystitis with CBD dilation and distended gallbladder, no cholelithiasis
-Decompensated alcoholic liver cirrhosis with ascites, MELD-Na 17
-Elevated ammonia level with mild HE in setting of bacteremia
-Leukocytosis- resolved
-History of hepatitis C with treatment
Other current medical history:
-Seizure disorder on Dilantin
-GERD
-History of IV drug use
-Anxiety/depression
-Spinal stenosis on chronic opiates
PLAN:
hbg remain stable at 7 range since 02/06 with no signs of active GI bleeding or bruising-- rectal exam 02/07 yellow stool
pt with progressive drop 12.9 in 2021, 11.7 05/2023, 01/29/24 10.0, 02/03/24-8.5, 02/08/24- 7.1
may be bone marrow suppression with hx ETOH use and cirrhosis
cont to trend do not overtransfuse-- no transfusions given this admission
recent EGD/colon completed this admission
no fluid to drain for para today
cont Lactulose TID
cont abx per ID
trend labs
ETOH abstinence
Pt is schedule 03/[address] Watkins
will sign off call with questions
Subjective
Subjective
Date of Service: February 09, 2024
no bloody stools, tolerating diet no fluid to drain on paracentesis
Objective
Data Reviewed
Laboratory Data:
Laboratory Results
02/09/24 04:24
02/09/24 04:24
Laboratory Results
PT 19.8 Sec (11.4-14.6) H 02/05/24 07:12
INR 1.70 02/05/24 07:12
Phosphorus 4.5 mg/dl (2.5-4.5) 02/09/24 04:24
Magnesium 1.6 mg/dl (1.6-2.3) 02/09/24 04:24
Total Bilirubin 0.4 mg/dl (0.2-1.3) 02/08/24 04:28
AST 34 U/L (14-36) 02/08/24 04:28
ALT 13 U/L (0-35) 02/08/24 04:28
Alkaline Phosphatase 97 U/L (38-126) 02/08/24 04:28
Lipase 31 U/L (23-300) 01/29/24 16:45
Vital Signs and I&O:
Vital Signs
Temp Pulse Resp BP Pulse Ox
98.5 F 66 17 110/70 98
02/09/24 08:50 02/09/24 09:24 02/09/24 08:50 02/09/24 09:24 02/09/24 09:00
I&O
02/08/24 02/09/24 02/10/24
06:59 06:59 06:59
Intake Total 690 / 690 900 / 900
Balance 690 / 690 900 / 900
Physical Exam
Physical Exam
HEENT: Anicteric and Moist mucous membranes
Cardiology: Normal Sinus Rhythm
Pulmonary: Clear
GI: Soft, Distended (mild) and Non Tender
Extremities: No Edema
Neuro: Non Focal
[2024-02-09] MEDS: ROCEPHIN 2000 MG IV (11:56)
[2024-02-09] MEDS: STERILE WATER FOR INJECTION 20 ML IV (11:56)
[2024-02-09 13:02] VITALS: BP 93/55; PULSE 71; PULSE 72; O2SAT 96; O2SAT 97
--- NOTE | 2024-02-09 13:03 | W.PN.ID1 ---
Date of Service
Date of Service: February 09, 2024
Today's Communication
Continue with ceftriaxone.
Assessment / Plan
# Streptococcal bovis bacteremia (2 sets 1 hour apart)
# Suspect L4/L5 discitis, HW infection with sxs acute on chronic back pain (see MRI report)
# Bile duct and pancreatic duct dilation - no obstruction found by ERCP
# Cirrhosis s/p hepatic decompensation.
# Alcohol abuse
- Repeat bcx's negative
- TTE no gross vegetation. No need for SANJIV as planning to treat x 6 weeks.
- ERCP/EUS no biliary duct obstruction
- 02/05/24 colonoscopy - multiple polyps resected. Path pending.
- Continue ceftriaxone 2g IV q24h through 03/14/24.
Follow weekly CBC/diff, CMP, CRP.
Infusion sheet submitted to behavioral health case manager.
- Has PICC
-Follow-up with Dr. Ramirez in 3-4 weeks.
# Dispo: awaiting SNF placement
%Additional Past Medical History:
alcohol abuse
cirrhosis
Ascites
seizures
GERD
Hx hep C-treated in past
chronic low back pain/spinal stenosis on chronic opiates
depression/anxiety
OA
RA
Acne on chronic doxycycline
nicotine abuse
former IVDA
L4/L5 surgery with hardware
bilateral wrist fracture repair
B/L foot fx repair
Chief Complaint
-: Bacteremia
Subjective / Review of Systems
Working with PT now
Vital Signs / Physical Exam
Vital Signs
Vital Signs
Temp Pulse Resp BP Pulse Ox
98.5 F 66 17 110/70 98
02/09/24 08:50 02/09/24 09:24 02/09/24 08:50 02/09/24 09:24 02/09/24 09:00
Physical Exam
Constitutional: No Acute Distress
Eyes: Sclera Anicteric
Neurological: AO x 3
Objective Data
Lab Data
Lab Results
02/09/24 04:24
02/09/24 04:24
PT 19.8 Sec (11.4-14.6) H 02/05/24 07:12
INR 1.70 02/05/24 07:12
Estimated Creat Clear 93 ml/min 02/09/24 04:24
Lactic Acid 1.4 mmol/L (0.7-2.0) 01/29/24 21:39
Total Bilirubin 0.4 mg/dl (0.2-1.3) 02/08/24 04:28
AST 34 U/L (14-36) 02/08/24 04:28
ALT 13 U/L (0-35) 02/08/24 04:28
Alkaline Phosphatase 97 U/L (38-126) 02/08/24 04:28
C-Reactive Protein 63.10 mg/L (0.0-10.00) H 01/31/24 07:09
Most recent labs reviewed.
Micro Results:
01/30/24 10:14 Blood Culture - Final
Blood/Venous No Growth - Final Report
01/30/24 09:47 Blood Culture - Final
Blood/Venous No Growth - Final Report
01/29/24 18:12 Blood Culture - Final
Blood/Venous Streptococcus bovis
Gram Stain - Final
01/29/24 16:45 Blood Culture - Final
Blood/Venous Streptococcus bovis
Gram Stain - Final
01/30/24 04:58 MRSA Screen - Final
Nose No Methicillin Resistant Staphylococcus aureus isolated.
01/30/24 MRI abdomen: Moderate biliary dilatation, moderate gallbladder dilatation, and mild pancreatic ductal dilatation which appears increased from 01/22/2024 raising the possibility of an obstructing stricture at the ampulla. Previous bilateral
posterior instrumentation at L4/L5 with fluid signal in the intervertebral disc and adjacent bone marrow signal intensity changes in the superior endplate of L5 which appears new and raises the possibility of acute infectious discitis if there are
signs/symptoms of infection. Degenerative disease is an alternative diagnostic possibility.
01/29/24 ABD US: Small volume of upper abdominal ascites.MODERATE HEPATIC CIRRHOSIS. Moderate splenomegaly secondary to portal hypertension. Distended gallbladder and common bile duct.
--- NOTE | 2024-02-09 13:48 | CM ---
Addendum entered by Melida Torres 02/09/24 15:50:
[facility] obtained
Ref# [id number]
-02/10 NRD
Kate Serrano [phone] (p)
[phone] (f)
Original Note:
CM Reviewed pt with Dr Leija- DRE tomorrow
Update provided to [facility] admissions
Clinicals and PICC info sent via [facility]
Call from [facility] [phone]
Noted pt managed by [facility] and have not been in receipt of clinicals yet
Requested clinicals be sent to [facility] instead of [employer]
Also requested to utilize [facility] Ref# [id number] instead
Clinicals faxed to [facility] [phone]
Requested new start date of 02/09
[employer] ref# [id number]
Discharge Disposition- anticipate tomorrow to [facility] pending [employer]/[facility] auth
--- NOTE | 2024-02-09 14:08 | W.PN.UPDATE ---
Update Note
Progress Note Update
For billing
[2024-02-09 15:00] VITALS: BP 89/54
[2024-02-09] MEDS: LOVENOX 40 MG SC (18:20)
[2024-02-09] MEDS: SEROQUEL 200 MG PO (22:49)
[2024-02-09] MEDS: ZOLOFT 200 MG PO (22:50)
[2024-02-09 23:55] VITALS: BP 127/58
--- NOTE | 2024-02-10 04:47 | DOWNTIME ---
There was a [employer] Downtime on 02/10/2024 from 0100 to 02/10/2024 at 0439. Downtime documentation of patient's care, including medication administrations, has been reconciled in the electronic record per guidelines. Refer to the
patient's paper chart under the miscellaneous tab to see printed paper medication records and downtime forms.
[2024-02-10 05:44] LABS: Hematocrit 22.5 % (37.0-47.0); Hemoglobin 7.2 g/dL (12.0-16.0); Mean Corpuscular Hgb 30.5 pg (27.0-31.0); Mean Corpuscular Volume 95.3 fL (81.0-99.0); Mean Platelet Volume 9.7 fL (7.4-10.4); Platelet Count 142 10^3/uL (130-400); Red Blood Cell Count 2.36 10^6/uL (4.20-5.40); Red Cell Dist. Width 15.1 % (11.5-14.5); White Blood Cell Count 4.7 10^3/uL (4.8-10.8)
[2024-02-10 06:00] VITALS: BMI 25.0
[2024-02-10 06:10] LABS: Blood Urea Nitrogen 11 mg/dl (7-17); Calcium 8.5 mg/dl (8.4-10.2); Carbon Dioxide 30 mmol/L (22-30); Chloride 107 mmol/L (98-107); Estimated Creatinine Clearance 93 ml/min; Glucose 91 mg/dl (70-99); Magnesium 1.5 mg/dl (1.6-2.3); Potassium 3.6 mmol/L (3.5-5.1); Sodium 137 mmol/L (135-145); eGFR > 60.00
[2024-02-10] MEDS: XANAX 1.5 MG PO ×2 (06:26→16:03)
[2024-02-10] MEDS: ROXICODONE 30 MG PO ×4 (06:27→22:00)
[2024-02-10 07:30] VITALS: BP 101/56
--- NOTE | 2024-02-10 08:38 | W.PN.HOSP.TC ---
Today's Communication/Plan
-
cont abx
home PO pain regimen resumed
discontinue prn IV Dilaudid
PT/OT
Assessment / Plan
Assessment / Plan
Physical Exam
General: No pallor, cyanosis, or jaundice.
HEENT: Throat clear. PERRLA Normocephalic atraumatic
NECK: Supple. No JVD Carotid Bruits
RESPIRATORY: Lungs clear to auscultation. No crackles wheezes stridor
CVS: S1, S2 normal. RRR. No murmur, rub or gallop.
ABDOMEN: Soft,non tender
EXTREMITIES: No peripheral cyanosis or edema.
LEGISLATIVE ANALYST: AOx3
58y F with PMH significant for Hep C s/p treatment, alcohol abuse and cirrhosis who presents to ED complaining of abdominal pain epigastric and RUQ areas
#Abdominal pain with CBD dilatation/leukocytosis
#Streptococcal bovis bacteremia
#possible Infectious discitis
Abd US noted moderate hepatic cirrhosis, small volume ascities, moderate splenomegaly 2/2 portal hyn, distended gallbladder and CBD duct
Urine drug screen positive opiates, oxycodone, benzos, barbiturates, tricyclic's
Lactic acid 2.1 resolved
Blood cultures positive for strep species, blood cultures repeated NGTD
ID following, continue antibiotics per ID,ceftriaxone 2g IV q24h through 03/14/24. s/p PICC line 02/04
pain control; lidocaine patch for back
Never had colonoscopy, given strep bovis recommended colonoscopy. GI following. Status post colonoscopy 02/04 with nonbleeding internal hemorrhoids, multiple polyps which were removed. Per GI appears precancerous. Patient will follow-up with GI
outpatient
02/07 GI re-eval requested d/t concern polypectomy bleed with H&H trending down since colonoscopy and bloody bowel movements, Vital signs otherwise remain stable
02/08 GI eval appreciated Hgb stable in 7 range, anemia likely d/t chronic liver dz bone marrow suppression no need for repeat EGD/Colonoscopy or capsule endoscopy at this time, recommended to cont with scheduled outpatient GI follow up with Dr
Protano 03/24
MRI/MRCP appreciated
-mod biliary gallbladder dilatation, mild pancreactic ductal dilatation, possible obstructing stricture ampulla
-moderate hepatic cirrhosis
-Portal htn w/ mod to severe splenomegaly
-small ascites
-previous instrumentation L4/L5 possible acute infectious discitis
-lower lobes possible atelectasis vs pna (incentive spirometer ordered)
Status post EUS 02/01 consistent with portal hypertension gastropathy
IR attempted para 02/02 however not enough fluid
Abd US repeated 02/07 also noted small ascites
IR eval appreciated 02/08 not enough for paracentesis.
Hypokalemia
Resolved
CT abd/pelvis findings consistent with MRI
surgery eval appreciated; CA125 high, no surgical intervention recommended at this time.
#Chronic mild memory impairment-Per daughter ongoing since November [address] head: No evidence of acute intracranial hemorrhage or transcortical infarct. Mild diffuse cerebral and cerebellar volume loss
#History of cirrhosis
#Hep C-treated
#Hepatic encephalopathy confusion forgetfulness, asterixis
#Portal HTN
-Paracentesis x 2 November and mid December 2023
-Hold spironolactone 100 mg daily soft pressures
-continue Lasix 20 mg daily
-started lactulose 01/30, continue
#Chronic thrombocytopenia 2/2 cirrhosis
platelets stable
monitor
#Chronic anemia
monitor
#GERD
-Continue Prilosec, calcium carbonate
#Former alcohol abuse-stopped end of November 2023
#Drinks on weekends according to daughter
-Alcohol level negative Tylenol salicylate negative
#Rheumatoid arthritis/OA with chronic wrist deformities
#Chronic pain on chronic oral opiates
-hydroxychloroquine 200 mg twice daily
-Oxycodone 30 mg 4 times daily prn
-Patient on Fosamax monthly
#Seizure disorder
No seizure over 20 years
-Continue phenytoin 100 mg twice daily, Lyrica 300 mg daily
#Anxiety
-Patient on Xanax 2 mg 3 times daily switched to prn, reduced to 1.5 mg TIDPRN d/t concerns confusion cognitive memory issues. Tolerating well
#Depression
-Continue Zoloft 100 mg at bedtime, Seroquel 200 mg at bedtime
PT/OT SNF rehab
DVT prophylaxis Subcu Lovenox
Full code
I spent a total of 55 minutes with the patient or on the floor. More than 50% of this time involved counseling and coordination of care.
Anticipated Discharge: 24 - 48 hours
Subjective/Interval History
-
Date of Service: February 10, 2024
No new acute issues. Appears comfortable at this time.
Objective Data
-
Labs:
Laboratory Results
02/10/24
05:27
WBC 4.7 L
Hgb 7.2 L
Hct 22.5 L
Plt Count 142
Sodium 137
Potassium 3.6
Chloride 107
Carbon Dioxide 30
BUN 11
Creatinine 0.6
Glucose 91
Calcium 8.5
Vital Signs:
Vital Signs
Temp Pulse Resp BP Pulse Ox
98.2 F 61 18 101/56 97
02/10/24 07:30 02/10/24 07:30 02/10/24 07:30 02/10/24 07:30 02/10/24 07:30
I&O
02/09/24 02/10/24 02/11/24
06:59 06:59 06:59
Intake Total 900 / 900 1020 / 1020
Balance 900 / 900 1020 / 1020
[2024-02-10] MEDS: DUPHALAC/CHRONULAC PO ×3 (09:16→22:00)
[2024-02-10] MEDS: DILAUDID 0.5 MG IV (09:19)
[2024-02-10] MEDS: NSS (PRESERVATIVE FREE) 10 ML IV ×2 (09:19→20:46)
[2024-02-10] MEDS: PROTONIX IV 40 MG IV ×2 (09:19→20:46)
[2024-02-10] MEDS: DILANTIN 100 MG PO ×2 (09:30→20:45)
[2024-02-10] MEDS: LASIX 20 MG PO (09:30)
[2024-02-10] MEDS: LIDOCAINE 4% PATCH 2 PATCH TOPICAL (09:31)
[2024-02-10] MEDS: LYRICA 300 MG PO (09:31)
[2024-02-10] MEDS: OSCAL CAL 500 500 MG PO (09:32)
[2024-02-10] MEDS: PLAQUENIL 200 MG PO ×2 (09:32→20:45)
[2024-02-10] MEDS: MAGNESIUM SULFATE 50 IV (10:44)
[2024-02-10] MEDS: STERILE WATER FOR INJECTION 20 ML IV (11:49)
[2024-02-10] MEDS: ROCEPHIN 2000 MG IV (11:49)
--- NOTE | 2024-02-10 13:40 | W.PN.ID1 ---
Date of Service
Date of Service: February 10, 2024
Today's Communication
Continue ceftriaxone.
Assessment / Plan
# Streptococcal bovis bacteremia (2 sets 1 hour apart)
# Suspect L4/L5 discitis, HW infection with sxs acute on chronic back pain (see MRI report)
# Bile duct and pancreatic duct dilation - no obstruction found by ERCP
# Cirrhosis s/p hepatic decompensation.
# Alcohol abuse
- Repeat bcx's negative
- TTE no gross vegetation. No need for SANJIV as planning to treat x 6 weeks.
- ERCP/EUS no biliary duct obstruction
- 02/05/24 colonoscopy - multiple polyps resected. Path: tubular adenoma
- CRP 63 -> 29
- Continue ceftriaxone 2g IV q24h through 03/14/24.
Follow weekly CBC/diff, CMP, CRP.
Infusion sheet submitted to caseworker.
- Has PICC
-Follow-up with Dr. Ramirez in 3-4 weeks.
# Dispo: awaiting SNF placement
%Additional Past Medical History:
alcohol abuse
cirrhosis
Ascites
seizures
GERD
Hx hep C-treated in past
chronic low back pain/spinal stenosis on chronic opiates
depression/anxiety
OA
RA
Acne on chronic doxycycline
nicotine abuse
former IVDA
L4/L5 surgery with hardware
bilateral wrist fracture repair
B/L foot fx repair
Chief Complaint
-: Bacteremia
Subjective / Review of Systems
Back pain better.
Vital Signs / Physical Exam
Vital Signs
Vital Signs
Temp Pulse Resp BP Pulse Ox
98.2 F 62 18 110/60 97
02/10/24 07:30 02/10/24 09:30 02/10/24 07:30 02/10/24 09:30 02/10/24 09:40
Physical Exam
Constitutional: No Acute Distress
Pulmonary: Clear
Gastrointestinal: Non Tender and Non Distended
Extremities: Negative Edema
Neurological: AO x 3
Objective Data
Lab Data
Lab Results
02/10/24 05:27
02/10/24 05:27
PT 19.8 Sec (11.4-14.6) H 02/05/24 07:12
INR 1.70 02/05/24 07:12
Estimated Creat Clear 93 ml/min 02/10/24 05:27
Lactic Acid 1.4 mmol/L (0.7-2.0) 01/29/24 21:39
Total Bilirubin 0.4 mg/dl (0.2-1.3) 02/08/24 04:28
AST 34 U/L (14-36) 02/08/24 04:28
ALT 13 U/L (0-35) 02/08/24 04:28
Alkaline Phosphatase 97 U/L (38-126) 02/08/24 04:28
C-Reactive Protein 29.00 mg/L (0.0-10.00) H 02/09/24 04:24
Most recent labs reviewed.
Micro Results:
01/30/24 10:14 Blood Culture - Final
Blood/Venous No Growth - Final Report
01/30/24 09:47 Blood Culture - Final
Blood/Venous No Growth - Final Report
01/29/24 18:12 Blood Culture - Final
Blood/Venous Streptococcus bovis
Gram Stain - Final
01/29/24 16:45 Blood Culture - Final
Blood/Venous Streptococcus bovis
Gram Stain - Final
01/30/24 04:58 MRSA Screen - Final
Nose No Methicillin Resistant Staphylococcus aureus isolated.
01/30/24 MRI abdomen: Moderate biliary dilatation, moderate gallbladder dilatation, and mild pancreatic ductal dilatation which appears increased from 01/22/2024 raising the possibility of an obstructing stricture at the ampulla. Previous bilateral
posterior instrumentation at L4/L5 with fluid signal in the intervertebral disc and adjacent bone marrow signal intensity changes in the superior endplate of L5 which appears new and raises the possibility of acute infectious discitis if there are
signs/symptoms of infection. Degenerative disease is an alternative diagnostic possibility.
01/29/24 ABD US: Small volume of upper abdominal ascites.MODERATE HEPATIC CIRRHOSIS. Moderate splenomegaly secondary to portal hypertension. Distended gallbladder and common bile duct.
[2024-02-10 14:45] VITALS: BP 90/54
[2024-02-10 15:02] VITALS: BP 90/54
[2024-02-10] MEDS: LOVENOX 40 MG SC (17:45)
[2024-02-10] MEDS: SEROQUEL 200 MG PO (22:00)
[2024-02-10] MEDS: ZOLOFT 200 MG PO (22:01)
[2024-02-10 23:55] VITALS: BP 100/59
[2024-02-11 06:00] VITALS: BMI 25.2
--- NOTE | 2024-02-11 07:29 | W.PN.HOSP.TC ---
Today's Communication/Plan
-
Continue monitoring
Anusol as per GI
abx as per ID
likely discharge tomorrow SNF rehab with outpatient follow up recommendations.
Assessment / Plan
Assessment / Plan
Physical Exam
General: No pallor, cyanosis, or jaundice.
HEENT: Throat clear. PERRLA Normocephalic atraumatic
NECK: Supple. No JVD Carotid Bruits
RESPIRATORY: Lungs clear to auscultation. No crackles wheezes stridor
CVS: S1, S2 normal. RRR. No murmur, rub or gallop.
ABDOMEN: Soft,non tender
EXTREMITIES: No peripheral cyanosis or edema.
PSYCHIATRIC LPN: AOx3
58y F with PMH significant for Hep C s/p treatment, alcohol abuse and cirrhosis who presents to ED complaining of abdominal pain epigastric and RUQ areas
#Abdominal pain with CBD dilatation/leukocytosis
#Streptococcal bovis bacteremia
#possible Infectious discitis
Abd US noted moderate hepatic cirrhosis, small volume ascities, moderate splenomegaly 2/2 portal hyn, distended gallbladder and CBD duct
Urine drug screen positive opiates, oxycodone, benzos, barbiturates, tricyclic's
Lactic acid 2.1 resolved
Blood cultures positive for strep species, blood cultures repeated NGTD
ID following, continue antibiotics per ID,ceftriaxone 2g IV q24h through 03/14/24. s/p PICC line 02/04
pain control; lidocaine patch for back
Never had colonoscopy, given strep bovis recommended colonoscopy. GI following. Status post colonoscopy 02/04 with nonbleeding internal hemorrhoids, multiple polyps which were removed. Per GI appears precancerous. Patient will follow-up with GI
outpatient
02/07 GI re-eval requested d/t concern polypectomy bleed with H&H trending down since colonoscopy and bloody bowel movements, Vital signs otherwise remain stable
02/08 GI eval appreciated Hgb stable in 7 range, anemia likely d/t chronic liver dz bone marrow suppression no need for repeat EGD/Colonoscopy or capsule endoscopy at this time, recommended to cont with scheduled outpatient GI follow up with Dr
Protano 03/24
02/10 Episode Bloody BM in morning
H&H stable improving
VSS stable
later BM during day normal
GI re-eval appreciated likely hemorrhoidal bleed, Anusol started
MRI/MRCP appreciated
-mod biliary gallbladder dilatation, mild pancreactic ductal dilatation, possible obstructing stricture ampulla
-moderate hepatic cirrhosis
-Portal htn w/ mod to severe splenomegaly
-small ascites
-previous instrumentation L4/L5 possible acute infectious discitis
-lower lobes possible atelectasis vs pna (incentive spirometer ordered)
Status post EUS 02/01 consistent with portal hypertension gastropathy
IR attempted para 02/02 however not enough fluid
Abd US repeated 02/07 also noted small ascites
IR eval appreciated 02/08 not enough for paracentesis.
Hypokalemia
Resolved
CT abd/pelvis findings consistent with MRI
surgery eval appreciated; CA125 high, no surgical intervention recommended at this time.
#Chronic mild memory impairment-Per daughter ongoing since November [address] head: No evidence of acute intracranial hemorrhage or transcortical infarct. Mild diffuse cerebral and cerebellar volume loss
#History of cirrhosis
#Hep C-treated
#Hepatic encephalopathy confusion forgetfulness, asterixis
#Portal HTN
-Paracentesis x 2 November and mid December 2023
-Hold spironolactone 100 mg daily soft pressures
-continue Lasix 20 mg daily
-started lactulose 01/30, continue
#Chronic thrombocytopenia 2/2 cirrhosis
platelets stable
monitor
#Chronic anemia
monitor
#GERD
-Continue Prilosec, calcium carbonate
#Former alcohol abuse-stopped end of November 2023
#Drinks on weekends according to daughter
-Alcohol level negative Tylenol salicylate negative
#Rheumatoid arthritis/OA with chronic wrist deformities
#Chronic pain on chronic oral opiates
-hydroxychloroquine 200 mg twice daily
-Oxycodone 30 mg 4 times daily prn
-Patient on Fosamax monthly
#Seizure disorder
No seizure over 20 years
-Continue phenytoin 100 mg twice daily, Lyrica 300 mg daily
#Anxiety
-Patient on Xanax 2 mg 3 times daily switched to prn, reduced to 1.5 mg TIDPRN d/t concerns confusion cognitive memory issues. Tolerating well
-Mental status since improved. Discussed with patient potential benefit weaning of xanax and concerns for complication with continued scheduled Xanax such as increased sedation and potential cognitive impairment. Patient not agreeable to weaning
further. 1.5 mg Xanax TIDPRN switched to TID (similar to home regiment)- holding parameters for sedation remain.
#Depression
-Continue Zoloft 100 mg at bedtime, Seroquel 200 mg at bedtime
PT/OT SNF rehab
DVT prophylaxis Subcu Lovenox
Full code
I spent a total of 57 minutes with the patient or on the floor. More than 50% of this time involved counseling and coordination of care.
Anticipated Discharge: Within 24 hours
Subjective/Interval History
-
Date of Service: February 11, 2024
New episode bloody bowel movement bright red blood. Patient otherwise no acute distress. 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 Described the
bowel movement as dark and blood tinged, constipation notably resolved following patient's compliance with bowel regimen an lactulose. Vital signs stable. repeat H&H noted improved from prior values. Patient later had another bowel movement that
appeared grossly normal.
Objective Data
-
Vital Signs:
Vital Signs
Temp Pulse Resp BP Pulse Ox
97.5 F 68 18 100/59 97
02/10/24 23:55 02/10/24 23:55 02/10/24 23:55 02/10/24 23:55 02/10/24 23:55
I&O
02/10/24 02/11/24 02/12/24
06:59 06:59 06:59
Intake Total 1020 / 1020 1560 / 1560
Balance 1020 / 1020 1560 / 1560
--- NOTE | 2024-02-11 07:41 | CM ---
patient cont iv rocephin for strep bacteremia,has picc,auth obtained from [facility],for snf at [facility] when stable.Plan [facility] today or tomorrow.
[2024-02-11 07:55] VITALS: BP 101/60
[2024-02-11] MEDS: FEOSOL 325 MG PO (08:27)
[2024-02-11] MEDS: PLAQUENIL 200 MG PO ×2 (08:27→20:23)
[2024-02-11] MEDS: LYRICA 300 MG PO (08:27)
[2024-02-11] MEDS: DILANTIN 100 MG PO ×2 (08:27→20:24)
[2024-02-11] MEDS: OSCAL CAL 500 500 MG PO (08:28)
[2024-02-11] MEDS: XANAX 1.5 MG PO ×3 (08:28→21:13)
[2024-02-11] MEDS: LIDOCAINE 4% PATCH 2 PATCH TOPICAL (08:29)
[2024-02-11] MEDS: DUPHALAC/CHRONULAC 20 GRAMS PO ×3 (08:34→21:12)
[2024-02-11] MEDS: NSS (PRESERVATIVE FREE) 10 ML IV ×2 (08:34→20:20)
[2024-02-11] MEDS: PROTONIX IV 40 MG IV ×2 (08:34→20:20)
[2024-02-11] MEDS: ROXICODONE 30 MG PO ×4 (08:35→21:16)
[2024-02-11] MEDS: LASIX 20 MG PO (08:47)
[2024-02-11] MEDS: STERILE WATER FOR INJECTION 20 ML IV (11:09)
[2024-02-11] MEDS: ROCEPHIN 2000 MG IV (11:09)
[2024-02-11 12:25] VITALS: BP 102/61; PULSE 68
[2024-02-11 12:32] LABS: Hematocrit 22.8 % (37.0-47.0); Hemoglobin 7.6 g/dL (12.0-16.0); Mean Corp Hgb Conc. 33.3 g/dL (33.0-37.0); Mean Corpuscular Hgb 30.6 pg (27.0-31.0); Mean Corpuscular Volume 91.9 fL (81.0-99.0); Mean Platelet Volume 9.6 fL (7.4-10.4); Platelet Count 156 10^3/uL (130-400); Red Blood Cell Count 2.48 10^6/uL (4.20-5.40); Red Cell Dist. Width 15.2 % (11.5-14.5); White Blood Cell Count 4.7 10^3/uL (4.8-10.8)
[2024-02-11 12:45] LABS: Blood Urea Nitrogen 10 mg/dl (7-17); Calcium 8.2 mg/dl (8.4-10.2); Carbon Dioxide 27 mmol/L (22-30); Chloride 108 mmol/L (98-107); Estimated Creatinine Clearance 93 ml/min; Glucose 95 mg/dl (70-99); Magnesium 1.7 mg/dl (1.6-2.3); Phosphorus 3.8 mg/dl (2.5-4.5); Potassium 3.9 mmol/L (3.5-5.1); Sodium 137 mmol/L (135-145); eGFR > 60.00
--- NOTE | 2024-02-11 13:12 | W.PN.GI.CBS2 ---
Today's Communication / Plan
-
External hemorrhoids on exam today and hemorrhoids noted on colonoscopy last week
I doubt this is post polypectomy bleeding
Follow BMs and Hgb
Add Anusol HC to treat hemorrhoids
Assessment / Plan
-
Pt is a 58-year-old female with a past medical history significant for decompensated alcoholic liver cirrhosis newly diagnosed in November, history of hep C with treatment with interferon in ribavirin in 1998, GERD, seizure disorder on Dilantin,
chronic doxycycline for acne, history of IV drug abuse, depression, anxiety, chronic opiates secondary to spinal stenosis, who presented to the emergency room with complaints of mid epigastric pain and right upper quadrant pain. abnormal ultrasound
concerning for cholecystitis with CBD dilation and known history of decompensated liver cirrhosis. LFTs are not significantly elevated to suggest cholangitis or acute biliary obstruction but with CBD findings cannot rule this out. Since admission
completed EUS and also noted strep bovis bacteremia. She completed EGD
02/01 EUS/EGD -no varices in entire esophagus
Portal hypertensive gastropathy.
- Normal duodenal bulb, first portion of the duodenum
and second portion of the duodenum.
- Ascites was found on endosonographic examination of
the peritoneal cavity.
- Pancreatic parenchymal abnormalities consisting of
hyperechoic strands and hyperechoic foci were noted in
the pancreatic head and pancreatic body.
- Main pancreatic duct (MPD) diameter was measured.
Endosonographically, the MPD had a normal appearance.
- There was dilation in the common bile duct which
measured up to 8 mm.
- There was no sign of significant pathology in the
ampulla.
- Three enlarged lymph nodes were visualized in the
celine hepatis region.
- No specimens collected.
02/04- colonoscopy fair prep, hemorrhoids, multiple TA polyp removed, diverticulosis, non bleeding internal hemorrhoids
-- -Echocardiogram was done on 02/01/2024 no evidence of vegetation. This was not a SANJIV
Problem list:
-anemia
-Abdominal pain
-abdominal distention
-strep bovis bacteremia
-suspected discitis with back pain
-CBD dilation s/p EUS
-?cholecystitis with CBD dilation and distended gallbladder, no cholelithiasis
-Decompensated alcoholic liver cirrhosis with ascites, MELD-Na 17
-Elevated ammonia level with mild HE in setting of bacteremia
-Leukocytosis- resolved
-History of hepatitis C with treatment
Other current medical history:
-Seizure disorder on Dilantin
-GERD
-History of IV drug use
-Anxiety/depression
-Spinal stenosis on chronic opiates
Subjective
Subjective
Date of Service: February 11, 2024
Called back to see pt due to rectal bleeding. Pt reports small amount of bleeding with BM
Objective
Data Reviewed
Laboratory Data:
Laboratory Results
02/11/24 12:23
02/11/24 12:23
Laboratory Results
PT 19.8 Sec (11.4-14.6) H 02/05/24 07:12
INR 1.70 02/05/24 07:12
Phosphorus 3.8 mg/dl (2.5-4.5) 02/11/24 12:23
Magnesium 1.7 mg/dl (1.6-2.3) 02/11/24 12:23
Total Bilirubin 0.4 mg/dl (0.2-1.3) 02/08/24 04:28
AST 34 U/L (14-36) 02/08/24 04:28
ALT 13 U/L (0-35) 02/08/24 04:28
Alkaline Phosphatase 97 U/L (38-126) 02/08/24 04:28
Lipase 31 U/L (23-300) 01/29/24 16:45
Vital Signs and I&O:
Vital Signs
Temp Pulse Resp BP Pulse Ox
98.1 F 69 16 101/60 97
02/11/24 07:55 02/11/24 08:47 02/11/24 07:55 02/11/24 08:47 02/11/24 07:55
I&O
02/10/24 02/11/24 02/12/24
06:59 06:59 06:59
Intake Total 1020 / 1020 1560 / 1560
Balance 1020 / 1020 1560 / 1560
Physical Exam
Physical Exam
Rectal: Hemorrhoids
--- NOTE | 2024-02-11 14:04 | W.PN.ID1 ---
Date of Service
Date of Service: February 11, 2024
Today's Communication
Continue ceftriaxone.
Assessment / Plan
# Streptococcal bovis bacteremia (2 sets 1 hour apart)
# Suspect L4/L5 discitis, HW infection with sxs acute on chronic back pain (see MRI report)
# Bile duct and pancreatic duct dilation - no obstruction found by ERCP
# Cirrhosis s/p hepatic decompensation.
# Alcohol abuse
- Repeat bcx's negative
- TTE no gross vegetation. No need for SANJIV as planning to treat x 6 weeks.
- ERCP/EUS no biliary duct obstruction
- 02/05/24 colonoscopy - multiple polyps resected. Path: tubular adenoma
- CRP 63 -> 29
- Continue ceftriaxone 2g IV q24h through 03/14/24.
Follow weekly CBC/diff, CMP, CRP.
Infusion sheet submitted to immigration case worker.
- Has PICC
-Follow-up with Dr. Ramirez in 3-4 weeks.
# BRBPR since colonoscopy with resection of multiple polyps.
# Dispo: Eventual SNF placement
%Additional Past Medical History:
alcohol abuse
cirrhosis
Ascites
seizures
GERD
Hx hep C-treated in past
chronic low back pain/spinal stenosis on chronic opiates
depression/anxiety
OA
RA
Acne on chronic doxycycline
nicotine abuse
former IVDA
L4/L5 surgery with hardware
bilateral wrist fracture repair
B/L foot fx repair
Chief Complaint
-: Bacteremia
Subjective / Review of Systems
After taking lactulose, noted to have bright red blood with bowel movement.
Vital Signs / Physical Exam
Vital Signs
Vital Signs
Temp Pulse Resp BP Pulse Ox
98.1 F 69 16 101/60 97
02/11/24 07:55 02/11/24 08:47 02/11/24 07:55 02/11/24 08:47 02/11/24 07:55
Physical Exam
Constitutional: No Acute Distress
Pulmonary: Clear
Gastrointestinal: Soft, Non Tender and Non Distended
Neurological: AO x 3
Lines: PICC (RUE)
Objective Data
Lab Data
Lab Results
02/11/24 12:23
02/11/24 12:23
PT 19.8 Sec (11.4-14.6) H 02/05/24 07:12
INR 1.70 02/05/24 07:12
Estimated Creat Clear 93 ml/min 02/11/24 12:23
Lactic Acid 1.4 mmol/L (0.7-2.0) 01/29/24 21:39
Total Bilirubin 0.4 mg/dl (0.2-1.3) 02/08/24 04:28
AST 34 U/L (14-36) 02/08/24 04:28
ALT 13 U/L (0-35) 02/08/24 04:28
Alkaline Phosphatase 97 U/L (38-126) 02/08/24 04:28
C-Reactive Protein 29.00 mg/L (0.0-10.00) H 02/09/24 04:24
Most recent labs reviewed.
Micro Results:
01/30/24 10:14 Blood Culture - Final
Blood/Venous No Growth - Final Report
01/30/24 09:47 Blood Culture - Final
Blood/Venous No Growth - Final Report
01/29/24 18:12 Blood Culture - Final
Blood/Venous Streptococcus bovis
Gram Stain - Final
01/29/24 16:45 Blood Culture - Final
Blood/Venous Streptococcus bovis
Gram Stain - Final
01/30/24 04:58 MRSA Screen - Final
Nose No Methicillin Resistant Staphylococcus aureus isolated.
01/30/24 MRI abdomen: Moderate biliary dilatation, moderate gallbladder dilatation, and mild pancreatic ductal dilatation which appears increased from 01/22/2024 raising the possibility of an obstructing stricture at the ampulla. Previous bilateral
posterior instrumentation at L4/L5 with fluid signal in the intervertebral disc and adjacent bone marrow signal intensity changes in the superior endplate of L5 which appears new and raises the possibility of acute infectious discitis if there are
signs/symptoms of infection. Degenerative disease is an alternative diagnostic possibility.
01/29/24 ABD US: Small volume of upper abdominal ascites.MODERATE HEPATIC CIRRHOSIS. Moderate splenomegaly secondary to portal hypertension. Distended gallbladder and common bile duct.
Care Review
Plan reviewed with: Physician (Dr. Leija)
--- NOTE | 2024-02-11 15:04 | CM ---
met with patient at bedside.tt to attending who states patient will be ready for discharge to [facility] tomorrow.i spoke with reinier to let her know patient needs another auth.i was told kiran has a 6 day fidel period starting on 02/07 and
patient is to dc to snf tomorow. she asked that facility call [phone] to let them know patient is at their facility.and fax [phone]. i recalled tamiko to give her the update.Plan is [facility] tomorrow if stable for dc.
[2024-02-11] MEDS: ANUSOL HC 25 MG RECTAL ×2 (15:36→22:08)
[2024-02-11 15:55] VITALS: BP 94/55
[2024-02-11] MEDS: LOVENOX 40 MG SC (16:45)
[2024-02-11] MEDS: SEROQUEL 200 MG PO (21:11)
[2024-02-11] MEDS: ZOLOFT 200 MG PO (21:14)
[2024-02-11 23:48] VITALS: BP 125/61
[2024-02-12 06:00] VITALS: BMI 25.0
[2024-02-12 07:55] VITALS: BP 91/46
--- NOTE | 2024-02-12 09:37 | W.PN.HOSP.TC ---
Today's Communication/Plan
-
discharge
Assessment / Plan
Assessment / Plan
Physical Exam
General: No pallor, cyanosis, or jaundice.
HEENT: Throat clear. PERRLA Normocephalic atraumatic
NECK: Supple. No JVD Carotid Bruits
RESPIRATORY: Lungs clear to auscultation. No crackles wheezes stridor
CVS: S1, S2 normal. RRR. No murmur, rub or gallop.
ABDOMEN: Soft,non tender, distended, bowel sounds present
EXTREMITIES: No peripheral cyanosis or edema.
MECHANICAL TECH: AOx3
58y F with PMH significant for Hep C s/p treatment, alcohol abuse and cirrhosis who presents to ED complaining of abdominal pain epigastric and RUQ areas
#Abdominal pain with CBD dilatation/leukocytosis
#Streptococcal bovis bacteremia
#possible Infectious discitis
Abd US noted moderate hepatic cirrhosis, small volume ascities, moderate splenomegaly 2/2 portal hyn, distended gallbladder and CBD duct
Urine drug screen positive opiates, oxycodone, benzos, barbiturates, tricyclic's
Lactic acid 2.1 resolved
Blood cultures positive for strep species, blood cultures repeated NGTD
ID following, continue antibiotics per ID,ceftriaxone 2g IV q24h through 03/14/24. s/p PICC line 02/04
pain control; lidocaine patch for back
Never had colonoscopy before, given strep bovis recommended colonoscopy. GI following. Status post colonoscopy 02/04 with nonbleeding internal hemorrhoids, multiple polyps which were removed. Per GI appears precancerous. Patient will follow-up
with GI outpatient
02/07 GI re-eval requested d/t concern polypectomy bleed with H&H trending down since colonoscopy and bloody bowel movements, Vital signs otherwise remain stable
02/08 GI eval appreciated Hgb stable in 7 range, anemia likely d/t chronic liver dz bone marrow suppression no need for repeat EGD/Colonoscopy or capsule endoscopy at this time, recommended to cont with scheduled outpatient GI follow up with
Protano 03/24
02/10 Episode Bloody BM in morning
H&H stable improving
VSS stable
later BM during day normal
GI re-eval appreciated likely hemorrhoidal bleed, Anusol started
Symptom appears resolved at this time
MRI/MRCP appreciated
-mod biliary gallbladder dilatation, mild pancreactic ductal dilatation, possible obstructing stricture ampulla
-moderate hepatic cirrhosis
-Portal htn w/ mod to severe splenomegaly
-small ascites
-previous instrumentation L4/L5 possible acute infectious discitis
-lower lobes possible atelectasis vs pna (incentive spirometer ordered)
Status post EUS 02/01 consistent with portal hypertension gastropathy
IR attempted para 02/02 however not enough fluid
Abd US repeated 02/07 also noted small ascites
IR eval appreciated 02/08 not enough for paracentesis.
Hypokalemia
Resolved
CT abd/pelvis findings consistent with MRI
surgery eval appreciated; CA125 high, no surgical intervention recommended at this time.
#Chronic mild memory impairment-Per daughter ongoing since November [address] head: No evidence of acute intracranial hemorrhage or transcortical infarct. Mild diffuse cerebral and cerebellar volume loss
#History of cirrhosis
#Hep C-treated
#Hepatic encephalopathy confusion forgetfulness, asterixis
#Portal HTN
-Paracentesis x 2 November and mid December 2023
-Hold spironolactone 100 mg daily soft pressures
-continue Lasix 20 mg daily
-started lactulose 01/30, continue
#Chronic thrombocytopenia 2/2 cirrhosis
platelets stable
monitor
#Chronic anemia
monitor
#GERD
-Continue Prilosec, calcium carbonate
#Former alcohol abuse-stopped end of November 2023
#Drinks on weekends according to daughter
-Alcohol level negative Tylenol salicylate negative
#Rheumatoid arthritis/OA with chronic wrist deformities
#Chronic pain on chronic oral opiates
-hydroxychloroquine 200 mg twice daily
-Oxycodone 30 mg 4 times daily prn
-Patient on Fosamax monthly
#Seizure disorder
No seizure over 20 years
-Continue phenytoin 100 mg twice daily, Lyrica 300 mg daily
#Anxiety
-Patient on Xanax 2 mg 3 times daily switched to prn, reduced to 1.5 mg TIDPRN d/t concerns confusion cognitive memory issues. Tolerating well
-Mental status since improved. Discussed with patient potential benefit weaning of xanax and concerns for complication with continued scheduled Xanax such as increased sedation and potential cognitive impairment. Patient not agreeable to weaning
further. 1.5 mg Xanax TIDPRN switched to TID (similar to home regiment)- holding parameters for sedation remain.
#Depression
-Continue Zoloft 100 mg at bedtime, Seroquel 200 mg at bedtime
PT/OT SNF rehab
DVT prophylaxis Subcu Lovenox
Full code
Medically stable for discharge SNF with outpatient follow up recommendations.
Total Time Preparing Discharge ___50____ minutes including examination of the patient, summary of the hospital stay, instructions for continuing care to all relevant caregivers; and preparation of discharge records, prescriptions, and referral
forms if necessary.
Anticipated Discharge: Today
Subjective/Interval History
-
Date of Service: February 12, 2024
Seen and examined at bedside in no acute distress sitting up comfortably in bed. Reports resolution of constipation. Denies further bloody bowel movements. Overall reports feeling well.
Objective Data
-
Vital Signs:
Vital Signs
Temp Pulse Resp BP Pulse Ox
98.8 F 73 20 91/46 96
02/12/24 07:55 02/12/24 07:55 02/12/24 07:55 02/12/24 07:55 02/12/24 07:55
I&O
02/11/24 02/12/24 02/13/24
06:59 06:59 06:59
Intake Total 1560 / 1560 1260 / 1260
Balance 1560 / 1560 1260 / 1260
[2024-02-12] MEDS: PLAQUENIL 200 MG PO (09:52)
[2024-02-12] MEDS: LYRICA 300 MG PO (09:53)
[2024-02-12] MEDS: ROXICODONE 30 MG PO ×3 (09:53→17:35)
[2024-02-12] MEDS: FEOSOL 325 MG PO (09:54)
[2024-02-12] MEDS: NSS (PRESERVATIVE FREE) 10 ML IV (09:54)
[2024-02-12] MEDS: PROTONIX IV 40 MG IV (09:54)
[2024-02-12] MEDS: LASIX 20 MG PO (09:54)
[2024-02-12] MEDS: XANAX 1.5 MG PO ×2 (09:55→15:34)
[2024-02-12] MEDS: OSCAL CAL 500 500 MG PO (09:55)
[2024-02-12] MEDS: DILANTIN 100 MG PO (09:56)
[2024-02-12] MEDS: LIDOCAINE 4% PATCH 2 PATCH TOPICAL (09:56)
[2024-02-12] MEDS: DUPHALAC/CHRONULAC PO (10:06)
--- NOTE | 2024-02-12 11:07 | W.PN.GI.CBS2 ---
Today's Communication / Plan
-
Continue current meds
continue to trend HB
Paracentesis PRN
Assessment / Plan
-
Pt is a 58-year-old female with a past medical history significant for decompensated alcoholic liver cirrhosis newly diagnosed in November, history of hep C with treatment with interferon in ribavirin in 1998, GERD, seizure disorder on Dilantin,
chronic doxycycline for acne, history of IV drug abuse, depression, anxiety, chronic opiates secondary to spinal stenosis, who presented to the emergency room with complaints of mid epigastric pain and right upper quadrant pain. abnormal ultrasound
concerning for cholecystitis with CBD dilation and known history of decompensated liver cirrhosis. LFTs are not significantly elevated to suggest cholangitis or acute biliary obstruction but with CBD findings cannot rule this out. Since admission
completed EUS and also noted strep bovis bacteremia. She completed EGD
02/01 EUS/EGD -no varices in entire esophagus
Portal hypertensive gastropathy.
- Normal duodenal bulb, first portion of the duodenum
and second portion of the duodenum.
- Ascites was found on endosonographic examination of
the peritoneal cavity.
- Pancreatic parenchymal abnormalities consisting of
hyperechoic strands and hyperechoic foci were noted in
the pancreatic head and pancreatic body.
- Main pancreatic duct (MPD) diameter was measured.
Endosonographically, the MPD had a normal appearance.
- There was dilation in the common bile duct which
measured up to 8 mm.
- There was no sign of significant pathology in the
ampulla.
- Three enlarged lymph nodes were visualized in the
celine hepatis region.
- No specimens collected.
02/04- colonoscopy fair prep, hemorrhoids, multiple TA polyp removed, diverticulosis, non bleeding internal hemorrhoids
-- -Echocardiogram was done on 02/01/2024 no evidence of vegetation. This was not a SANJIV
Problem list:
-anemia
-Abdominal pain
-abdominal distention
-strep bovis bacteremia
-suspected discitis with back pain
-CBD dilation s/p EUS
-?cholecystitis with CBD dilation and distended gallbladder, no cholelithiasis
-Decompensated alcoholic liver cirrhosis with ascites, MELD-Na 17
-Elevated ammonia level with mild HE in setting of bacteremia
-Leukocytosis- resolved
-History of hepatitis C with treatment
Other current medical history:
-Seizure disorder on Dilantin
-GERD
-History of IV drug use
-Anxiety/depression
-Spinal stenosis on chronic opiates
PLAN :
Hematochezia was most likely related to hemorrhoids less likely post polypectomy or diverticular bleed.
Continue Anusol
Hemoglobin did slowly drift down but no further bleeding since yesterday will hold off on repeat endoscopy or colonoscopy unless she has further active bleeding.
She does have portal gastropathy which could be contributing to the anemia also, no varices were noted on endoscopy.
cont Lactulose TID
cont abx per ID
ETOH abstinence
Para PRN for ascites
follow-up with Dr. Lafleur after DC.
Will sign off and will be available as needed
Subjective
Subjective
Date of Service: February 12, 2024
No further bleeding since yesterday. She denies any abdominal pain she does feel bloated . She did have a recent abdomen ultrasound on 02/08 with very minimal ascites not enough for drainage.
Objective
Data Reviewed
Laboratory Data:
Laboratory Results
02/11/24 12:23
02/11/24 12:23
Laboratory Results
PT 19.8 Sec (11.4-14.6) H 02/05/24 07:12
INR 1.70 02/05/24 07:12
Phosphorus 3.8 mg/dl (2.5-4.5) 02/11/24 12:23
Magnesium 1.7 mg/dl (1.6-2.3) 02/11/24 12:23
Total Bilirubin 0.4 mg/dl (0.2-1.3) 02/08/24 04:28
AST 34 U/L (14-36) 02/08/24 04:28
ALT 13 U/L (0-35) 02/08/24 04:28
Alkaline Phosphatase 97 U/L (38-126) 02/08/24 04:28
Lipase 31 U/L (23-300) 01/29/24 16:45
Vital Signs and I&O:
Vital Signs
Temp Pulse Resp BP Pulse Ox
98.8 F 79 20 108/64 96
02/12/24 07:55 02/12/24 09:54 02/12/24 07:55 02/12/24 09:54 02/12/24 07:55
I&O
02/11/24 02/12/24 02/13/24
06:59 06:59 06:59
Intake Total 1560 / 1560 1260 / 1260
Balance 1560 / 1560 1260 / 1260
Physical Exam
Physical Exam
Cardiology: Normal Sinus Rhythm
Pulmonary: Clear
GI: Soft, Distended (mildly distended), Non Tender and Normal Bowel Sounds
--- NOTE | 2024-02-12 12:29 | CM ---
spoke with attending.patient is stable for dc to [facility].auth received previously.patient needs ambulance transport aat 4pm per doctor..phone number to call report is [phone] and fax is [phone].
[2024-02-12] MEDS: STERILE WATER FOR INJECTION 20 ML IV (12:42)
[2024-02-12] MEDS: ROCEPHIN 2000 MG IV (12:42)
--- NOTE | 2024-02-12 13:51 | W.PN.ID1 ---
Date of Service
Date of Service: February 12, 2024
Today's Communication
Continue ceftriaxone.
Assessment / Plan
# Streptococcal bovis bacteremia (2 sets 1 hour apart)
# Suspect L4/L5 discitis, HW infection with sxs acute on chronic back pain (see MRI report)
# Bile duct and pancreatic duct dilation - no obstruction found by ERCP
# Cirrhosis s/p hepatic decompensation.
# Alcohol abuse
- Repeat bcx's negative
- TTE no gross vegetation. No need for SANJIV as planning to treat x 6 weeks.
- ERCP/EUS no biliary duct obstruction
- 02/05/24 colonoscopy - multiple polyps resected. Path: tubular adenoma
- CRP 63 -> 29
- Continue ceftriaxone 2g IV q24h through 03/14/24.
Follow weekly CBC/diff, CMP, CRP.
- Has PICC
-Follow-up with Dr. Ramirez in 3-4 weeks.
# BRBPR from hemorrhoids, per GI.
# Dispo: Eventual SNF placement
%Additional Past Medical History:
alcohol abuse
cirrhosis
Ascites
seizures
GERD
Hx hep C-treated in past
chronic low back pain/spinal stenosis on chronic opiates
depression/anxiety
OA
RA
Acne on chronic doxycycline
nicotine abuse
former IVDA
L4/L5 surgery with hardware
bilateral wrist fracture repair
B/L foot fx repair
Chief Complaint
-: Bacteremia
Subjective / Review of Systems
No further blood from rectum. Wants to take a shower.
Vital Signs / Physical Exam
Vital Signs
Vital Signs
Temp Pulse Resp BP Pulse Ox
98.8 F 79 20 108/64 96
02/12/24 07:55 02/12/24 09:54 02/12/24 07:55 02/12/24 09:54 02/12/24 07:55
Physical Exam
Constitutional: No Acute Distress and Comfortable
Cardiovascular: Regular Rate and S1/S2
Gastrointestinal: Soft, Non Tender and Distended
Extremities: Negative Edema
Objective Data
Lab Data
Lab Results
02/11/24 12:23
02/11/24 12:23
PT 19.8 Sec (11.4-14.6) H 02/05/24 07:12
INR 1.70 02/05/24 07:12
Estimated Creat Clear 93 ml/min 02/11/24 12:23
Lactic Acid 1.4 mmol/L (0.7-2.0) 01/29/24 21:39
Total Bilirubin 0.4 mg/dl (0.2-1.3) 02/08/24 04:28
AST 34 U/L (14-36) 02/08/24 04:28
ALT 13 U/L (0-35) 02/08/24 04:28
Alkaline Phosphatase 97 U/L (38-126) 02/08/24 04:28
C-Reactive Protein 29.00 mg/L (0.0-10.00) H 02/09/24 04:24
Most recent labs reviewed.
Micro Results:
01/30/24 10:14 Blood Culture - Final
Blood/Venous No Growth - Final Report
01/30/24 09:47 Blood Culture - Final
Blood/Venous No Growth - Final Report
01/29/24 18:12 Blood Culture - Final
Blood/Venous Streptococcus bovis
Gram Stain - Final
01/29/24 16:45 Blood Culture - Final
Blood/Venous Streptococcus bovis
Gram Stain - Final
01/30/24 04:58 MRSA Screen - Final
Nose No Methicillin Resistant Staphylococcus aureus isolated.
01/30/24 MRI abdomen: Moderate biliary dilatation, moderate gallbladder dilatation, and mild pancreatic ductal dilatation which appears increased from 01/22/2024 raising the possibility of an obstructing stricture at the ampulla. Previous bilateral
posterior instrumentation at L4/L5 with fluid signal in the intervertebral disc and adjacent bone marrow signal intensity changes in the superior endplate of L5 which appears new and raises the possibility of acute infectious discitis if there are
signs/symptoms of infection. Degenerative disease is an alternative diagnostic possibility.
01/29/24 ABD US: Small volume of upper abdominal ascites.MODERATE HEPATIC CIRRHOSIS. Moderate splenomegaly secondary to portal hypertension. Distended gallbladder and common bile duct.
Care Review
Plan reviewed with: Physician (Dr. Leija)
--- NOTE | 2024-02-12 14:56 | W.DCSUMMARY ---
Discharge Summary
Discharge Data
Date of Admission: 01/29/24
Date of Discharge: 02/12/24
-
Pending Results: No
Hospital Course
58F c/o mid epigastric pain RUQ unclear duration days to week. Denied nausea, vomiting, fever, chills, diarrhea, chest pain, palpitations, shortness breath, cough, urinary symptoms. According to her daughter at bedside she had some memory
impairment on and off since end november after stopping alcohol use. She called her today
to ask her to come over and assist her getting out of bed to the bathroom when she arrived she found her mom on the ground next to her bed complaining of low back pain and sciatica but she appeared more confused. Her daughter reported that she has
history of cirrhosis with abdominal ascites did have outpatient paracentesis end of November and mid December 2.5 L. She has past medical history of hep C, cirrhosis, seizures, GERD, chronic low back pain, spinal stenosis on chronic opiates,
depression/anxiety, RA, OA, nicotine abuse, former alcohol abuse stopped end of November 2023, former IVDA. Abdominal pain with CBD dilatation/leukocytosis, Streptococcal bovis bacteremia, possible Infectious discitis, Abd US noted moderate hepatic
cirrhosis, small volume ascites, moderate splenomegaly 2/2 portal htn, distended gallbladder and CBD duct. Urine drug screen positive opiates, oxycodone, benzos, barbiturates, and tricyclic's. Lactic acid 2.1 resolved. Blood cultures positive for
strep species, blood cultures repeated NGTD. ID evaluated and recommended ceftriaxone 2g IV q24h through 03/14/24. s/p PICC line 02/04. Pain control, lidocaine patch applied to back.
Never had colonoscopy before, given strep bovis recommended colonoscopy. GI evaluated and performed colonoscopy 02/04 with nonbleeding internal hemorrhoids, multiple polyps which were removed. Per GI appeared precancerous. Patient to follow-up
with GI outpatient. 02/07 GI re-eval requested d/t concern polypectomy bleed with H&H trending down since colonoscopy and bloody bowel movements, Vital signs otherwise remained stable. 02/08 GI eval appreciated Hgb stable in 7 range, anemia likely
d/t chronic liver dz bone marrow suppression no need for repeat EGD/Colonoscopy or capsule endoscopy at this time, recommended to cont with scheduled outpatient GI follow up with Dr Watkins 03/24. 02/10 Episode Bloody BM in morning, H&H stable
improving. VSS stable. Later BM during day normal. GI re-eval appreciated likely hemorrhoidal bleed, Anusol started. Symptoms subsequently resolved.
MRI/MRCP appreciated
-mod biliary gallbladder dilatation, mild pancreactic ductal dilatation, possible obstructing stricture ampulla
-moderate hepatic cirrhosis
-Portal htn w/ mod to severe splenomegaly
-small ascites
-previous instrumentation L4/L5 possible acute infectious discitis
-lower lobes possible atelectasis vs pna (incentive spirometer provided)
Status post EUS 02/01 consistent with portal hypertension gastropathy. IR attempted para 02/02 however not enough fluid. Abd US repeated 02/07 also noted small ascites
IR eval appreciated 02/08 not enough for paracentesis. CT abd/pelvis findings consistent with MRI. Surgery eval appreciated CA125 high, no surgical intervention recommended at this time. Chronic mild memory impairment-Per daughter ongoing since
November 2023. CT head: No evidence of acute intracranial hemorrhage or transcortical infarct. Mild diffuse cerebral and cerebellar volume loss. History of cirrhosis, Hep C-treated, Hepatic encephalopathy confusion forgetfulness, asterixis,Portal
HTN, Paracentesis x 2 November and mid December 2023. Home spironolactone 100 mg daily was held due to soft pressures. Lasix 20 mg daily was continued. Lactulose was started 01/30 and continued. Chronic thrombocytopenia 2/2 cirrhosis, platelets
stable. Chronic anemia, H&H stable prior to discharge. Patient on Xanax 2 mg 3 times daily switched to prn, reduced to 1.5 mg TIDPRN d/t concerns confusion cognitive memory issues. Tolerated well. Mental status since improved. Discussed with
patient potential benefit weaning of xanax and concerns for complication with continued scheduled Xanax such as increased sedation and potential cognitive impairment. Patient not agreeable to weaning further. 1.5 mg Xanax TIDPRN switched to TID
(similar to home regiment)- holding parameters for sedation remain. Medically stable, patient was discharged to SNF rehab with outpatient follow up recommendations.
Discharge Plan
-
Patient Disposition: Senior Living/SNF
Discharge Diagnosis/Procedures: Streptococcal bovis bacteremia, suspected infected discitis L4/L5, cirrhosis, hepatic encephalopathy, history Hepatitis C completed treatment, GERD, Seizure disorder, depression/anxiety, spinal stenosis on chronic
opiates, Hemorrhoids, Chronic anemia, thrombocytopenia resolved, Rheumatoid Arthritis, Seizure Disorder, Hypomagnesemia resolved
Condition: Fair
Additional Diets: Cirrhosis Diet
Activity: With assistance, As tolerated and With Walker
Driving Restrictions: Not until seen by your Dr
Bathing Restrictions: None
Blood Work: Please repeat CBC CMP and Mag level with primary care provider in 1 week of discharge.
Others Tests: Please obtain outpatient Abd US in 2-4 weeks of discharge with primary care provider or GI to assess ascites
Other Services: PT and OT
Activity Restrictions/Additional Instructions:
1. Continue ceftriaxone 2g IV q24h through 03/14/24.
2 . Weekly CBC with diff, CMP, CRP while on ceftriaxone.
Please follow up with primary care provider in 1 week of discharge, keep your follow up appointments with GI, and follow up with ID in 3-4 weeks of discharge.
Home Medications
quetiapine 200 mg tablet (Seroquel) 200 mg PO HS depression
cholecalciferol (vitamin D3) 25 mcg (1,000 unit) tablet (Vitamin D3) 25 mcg PO DAILY supplement
folic acid 1 mg tablet 1 mg PO DAILY supplement
hydroxychloroquine 200 mg tablet 200 mg PO BID rheumatoid arthritis
omeprazole 40 mg capsule,delayed release 40 mg PO DAILY Gastrointestinal Issue
pregabalin 300 mg capsule 300 mg PO DAILY for pain neuropathy
sertraline 100 mg tablet 200 mg PO HS depression
alendronate 70 mg tablet (Fosamax) 70 mg PO MO osteoporosis
biotin 5 mg tablet 5 mg PO DAILY supplement
calcium carbonate 500 mg PO DAILY supplement
cyanocobalamin (vitamin B-12) 1,000 mcg tablet 1,000 mcg PO DAILY supplement
milk thistle 150 mg capsule 150 mg PO DAILY Supplement
phenytoin sodium extended 100 mg capsule 100 mg PO BID seizures
therapeutic multivitamin 1 tab PO DAILY nutrition supplement
furosemide 20 mg tablet 20 mg PO DAILY for ascites
oxycodone 30 mg tablet 30 mg PO QID Pain 5 days home pain meds for spinal stenosis chronic pain
Hold spironolactone at this time due to soft pressures. Follow up with primary or GI to determine when safe to resume.
New Medications
alprazolam 1 mg tablet 1.5 mg (1.5 x 1 mg) PO TID 5 days #23 tabs for Anxiety (reduced from prior home medication 2mg TID d/t sedation concern cognitive impairment)
ferrous sulfate 325 mg (65 mg iron) tablet (FeroSul) 325 mg PO DAILY for Anemia of Chronic Disease
hydrocortisone acetate 25 mg rectal suppository 25 mg IN HS 24 days for Hemorrhoids
lactulose 20 gram/30 mL oral solution 20 g (30 mL) PO TID 30 days #2,700 mL for hepatic Encephalopathy
Please take medications as prescribed/recommended and follow up with your primary care provider and/or other healthcare provider involved in your care for refills and/or further adjustment to your medication regimen.
Strict avoidance of Alcohol use is strongly advised as usage may lead to worsening of your overall condition, increase risk of morbidity and even the possibility of .
Instructions: Cirrhosis (DC), Diet for Cirrhosis
Referrals:
Armin Watkins MD [Active] - 03/24/24 (03/24 at noon in [place] [address] GI suite)
UNKNOWN - PT NOT,INTERVIEWE [Family Provider] -
Mireya Ramirez MD [Active] - in three to four weeks
Prescriptions:
New
hydrocortisone acetate 25 mg Suppository
25 mg IN HS 24 Days Qty: 24 0RF
ferrous sulfate [FeroSul] 325 mg (65 mg iron) Tablet
325 mg PO DAILY 30 Days Qty: 30 0RF
lactulose 20 gram/30 mL Solution
20 g PO TID 30 Days Qty: 2700 0RF
alprazolam 1 mg Tablet
1.5 mg PO TID 5 Days Qty: 23 0RF
Continued
quetiapine [Seroquel] 200 MG tablet
200 mg PO HS
sertraline 100 MG tablet
200 mg PO HS
omeprazole 40 MG capsule,delayed release(DR/EC)
40 mg PO DAILY
folic acid 1 mg Tablet
1 mg PO DAILY Qty: 0
hydroxychloroquine 200 MG tablet
200 mg PO BID
pregabalin 300 MG capsule
300 mg PO DAILY
cholecalciferol (vitamin D3) [Vitamin D3] 25 mcg (1,000 unit) Tablet
25 mcg PO DAILY Qty: 0
alendronate [Fosamax] 70 mg Tablet
70 mg PO MO
cyanocobalamin (vitamin B-12) 1,000 mcg Tablet
1,000 mcg PO DAILY
therapeutic multivitamin Tablet
1 tab PO DAILY
phenytoin sodium extended 100 mg capsule
100 mg PO BID
Patient Comments:
no pharmacy fills, patient has 40mg on her home med list but its from 07/14/2023, no ecw records for dosing
milk thistle 150 mg Capsule
150 mg PO DAILY
calcium carbonate 500 mg calcium (1,250 mg) Tablet
500 mg PO DAILY
biotin 5 mg Tablet
5 mg PO DAILY
furosemide 20 mg Tablet
20 mg PO DAILY Qty: 30 0RF
oxycodone 30 mg Tablet
30 mg PO QID 5 Days Qty: 20 0RF
Held
spironolactone 100 mg Tablet
100 mg PO DAILY
Hold Instructions: Placed on hold due to soft low pressures. Follow up with GI and/or primary care provider to determine when safe to resume.
Discontinued
alprazolam 2 mg tablet
2 mg PO TID
doxycycline hyclate 100 mg Tablet
100 mg PO Q48H
potassium 99 mg Tablet
99 mg PO DAILY
Discharge Orders:
Discharge Patient (As Directed); Ordered 02/12/24
Ordered By: Khushboo Leija
Discharge Date and Time
Discharge Date/Time: 02/12/24 20:06
Print Language: LITHUANIAN
[2024-02-12] MEDS: DUPHALAC/CHRONULAC 20 GRAMS PO (15:33)
[2024-02-12 15:55] VITALS: BP 109/71
[2024-02-12] MEDS: LOVENOX 40 MG SC (17:35)
--- NOTE | 2024-02-12 19:56 | PTCARENOTE ---
Patient transported to [facility] at this time via stretcher. [facility]. Day Shift RN called report to facility. All belongings taken from room
== END 2024-02-12 20:06 | DRG 540 ==
LOC: 4 EAST ACU 21:27
PROVIDERS: Clinical Nurse Specialist Family Health; Internal Medicine; Internal Medicine Gastroenterology; Nurse Practitioner Adult Health; Physician Assistant; Radiology Diagnostic Radiology; Registered Nurse; ADMITTING PHYSICIAN Hospitalist; ATTENDING PHYSICIAN Internal Medicine; CONSULT PHYSICIAN Internal Medicine Gastroenterology; CONSULT PHYSICIAN Internal Medicine Infectious Disease; CONSULT PHYSICIAN Surgery; EMERGENCY PHYSICIAN Emergency Medicine
PROC: 0DJ08ZZ Inspection of Upper Intestinal Tract, Via Natural or Artificial Opening Endoscopic (ICD-10-PCS; 2024-02-02)
PROC: 0DBH8ZZ Excision of Cecum, Via Natural or Artificial Opening Endoscopic (ICD-10-PCS; 2024-02-05)
PROC: 0DBL8ZZ Excision of Transverse Colon, Via Natural or Artificial Opening Endoscopic (ICD-10-PCS; 2024-02-05)
PROC: 02H633Z Insertion of Infusion Device into Right Atrium, Percutaneous Approach (ICD-10-PCS; 2024-02-05)
PROC: 0DBM8ZZ Excision of Descending Colon, Via Natural or Artificial Opening Endoscopic (ICD-10-PCS; 2024-02-05)
PROC: 0DBK8ZX Excision of Ascending Colon, Via Natural or Artificial Opening Endoscopic, Diagnostic (ICD-10-PCS; 2024-02-05)
PROC: 0DBK8ZZ Excision of Ascending Colon, Via Natural or Artificial Opening Endoscopic (ICD-10-PCS; 2024-02-05)
DX: M46.36 Infection of intervertebral disc (pyogenic), lumbar region (principal); F11.20 Opioid dependence, uncomplicated; K76.6 Portal hypertension; K83.09 Other cholangitis; R78.81 Bacteremia; R41.82 Altered mental status, unspecified; K70.31 Alcoholic cirrhosis of liver with ascites; M06.9 Rheumatoid arthritis, unspecified; M54.30 Sciatica, unspecified side; K21.9 Gastro-esophageal reflux disease without esophagitis; F32.A Depression, unspecified; M19.90 Unspecified osteoarthritis, unspecified site; G89.29 Other chronic pain; J30.1 Allergic rhinitis due to pollen; J30.89 Other allergic rhinitis; M48.00 Spinal stenosis, site unspecified; F41.9 Anxiety disorder, unspecified; F19.11 Other psychoactive substance abuse, in remission; F17.210 Nicotine dependence, cigarettes, uncomplicated; R16.1 Splenomegaly, not elsewhere classified; K82.8 Other specified diseases of gallbladder; E87.6 Hypokalemia; D69.59 Other secondary thrombocytopenia; K76.82 Hepatic encephalopathy; D64.9 Anemia, unspecified; M41.9 Scoliosis, unspecified; B96.89 Other specified bacterial agents as the cause of diseases classified elsewhere; B95.4 Other streptococcus as the cause of diseases classified elsewhere; K31.89 Other diseases of stomach and duodenum; K86.89 Other specified diseases of pancreas; R59.0 Localized enlarged lymph nodes; K64.8 Other hemorrhoids; D12.0 Benign neoplasm of cecum; D12.3 Benign neoplasm of transverse colon; K59.00 Constipation, unspecified; D12.4 Benign neoplasm of descending colon; K57.30 Diverticulosis of large intestine without perforation or abscess without bleeding; G40.909 Epilepsy, unspecified, not intractable, without status epilepticus; L70.9 Acne, unspecified; F10.10 Alcohol abuse, uncomplicated; W06.XXXA Fall from bed, initial encounter; Y93.89 Activity, other specified; Y92.003 Bedroom of unspecified non-institutional (private) residence as the place of occurrence of the external cause; Z86.19 Personal history of other infectious and parasitic diseases; Z81.1 Family history of alcohol abuse and dependence; Z88.8 Allergy status to other drugs, medicaments and biological substances; Z79.2 Long term (current) use of antibiotics; Z75.1 Person awaiting admission to adequate facility elsewhere
CPT/HCPCS: 88305; 70450; 71045; 74177; 74183; 76700; 76705; 80048; 80053; 80143; 80179; 80306; 80307; 81003; 81015; 82077; 82140; 82248; 82378; 82607; 83540; 83550; 83605; 83690; 83735; 84100; 85014; 85018; 85025; 85027; 85610; 86140; 86301; 86304; 86850; 86900; 86901; 87040; 87070; 87149; 87186; 87205; 93005; 93306; 96361; 96365; 96367; 97162; 97167; 97530; 97535; 99285; 99406; A9575; Q9967

== ENCOUNTER → 2024-03-09 13:10 | Outpatient (REF) | payer OTHER, SELFPAY ==
[2024-03-09 14:35] LABS: Blood Urea Nitrogen 8 mg/dl (7-17); Calcium 9.2 mg/dl (8.4-10.2); Carbon Dioxide 25 mmol/L (22-30); Chloride 103 mmol/L (98-107); Glucose 110 mg/dl (70-99); Potassium 4.5 mmol/L (3.5-5.1); Sodium 137 mmol/L (135-145); eGFR > 60.00
== END ==
LOC: REG 13:10
PROVIDERS: ATTENDING PHYSICIAN Internal Medicine Gastroenterology; FAMILY PHYSICIAN Family Medicine
DX: R18.8 Other ascites (principal)
CPT/HCPCS: 36415; 80048

== ENCOUNTER → 2024-03-30 14:00 | Outpatient (REF) | payer OTHER, SELFPAY ==
[2024-03-30 16:04] LABS: % Basophils 0.8 % (0-2); % Eosinophils 5.7 % (0-6); % Immature Granulocytes 0.3 % (0-0.5); % Lymphocytes 20.6 % (20.5-51.1); % Monocytes 11.2 % (1.7-9.3); % Neutrophils 61.4 % (42.2-75.2); Absolute Basophils 0.1 10^3/uL (0-0.2); Absolute Eosinophils 0.4 10^3/uL (0-0.7); Absolute Lymphocytes 1.3 10^3/uL (1.2-3.4); Absolute Monocytes 0.7 10^3/uL (0.1-0.6); Absolute Neutrophils 3.9 10^3/uL (1.4-6.5); Hematocrit 29.9 % (37.0-47.0); Hemoglobin 10.3 g/dL (12.0-16.0); Mean Corp Hgb Conc. 34.4 g/dL (33.0-37.0); Mean Corpuscular Hgb 29.9 pg (27.0-31.0); Mean Corpuscular Volume 86.9 fL (81.0-99.0); Mean Platelet Volume 9.4 fL (7.4-10.4); Nucleated Red Blood Cells % 0 %; Platelet Count 145 10^3/uL (130-400); Red Blood Cell Count 3.44 10^6/uL (4.20-5.40); White Blood Cell Count 6.3 10^3/uL (4.8-10.8)
[2024-03-30 16:15] LABS: APTT 39.2 Sec (23.4-35.0); INR 1.45; PT 17.5 Sec (11.4-14.6)
[2024-03-30 16:26] LABS: ALT (SGPT) 12 U/L (0-35); AST (SGOT) 41 U/L (14-36); Albumin 3.6 g/dl (3.5-5.0); Alkaline Phosphatase 136 U/L (38-126); Blood Urea Nitrogen 17 mg/dl (7-17); Calcium 9.5 mg/dl (8.4-10.2); Carbon Dioxide 26 mmol/L (22-30); Chloride 98 mmol/L (98-107); Direct Bilirubin 0.4 mg/dl (0.0-0.4); Glucose 159 mg/dl (70-99); Potassium 4.4 mmol/L (3.5-5.1); Sodium 135 mmol/L (135-145); Total Bilirubin 0.5 mg/dl (0.2-1.3); Total Protein 8.5 g/dl (6.3-8.2); eGFR > 60.00
== END ==
LOC: REG 14:00
PROVIDERS: ATTENDING PHYSICIAN Internal Medicine Gastroenterology
DX: K70.31 Alcoholic cirrhosis of liver with ascites (principal)
CPT/HCPCS: 36415; 80053; 82248; 85025; 85610; 85730

== ENCOUNTER → 2024-04-05 08:34 | Outpatient (REF) | payer OTHER, SELFPAY ==
[2024-04-05 08:45] VITALS: BP 108/64; BP_SYST 104
== END ==
LOC: RADI 08:34
PROVIDERS: ATTENDING PHYSICIAN Internal Medicine Gastroenterology; FAMILY PHYSICIAN Family Medicine
DX: R18.8 Other ascites (principal); Z53.8 Procedure and treatment not carried out for other reasons
CPT/HCPCS: 76705

== ENCOUNTER → 2024-07-18 11:47 | Outpatient (REF) | payer OTHER, SELFPAY ==
[2024-07-18 12:35] LABS: % Basophils 0.7 % (0-2); % Eosinophils 4.7 % (0-6); % Immature Granulocytes 0.3 % (0-0.5); % Lymphocytes 17.9 % (20.5-51.1); % Monocytes 10.8 % (1.7-9.3); % Neutrophils 65.6 % (42.2-75.2); Absolute Basophils 0.1 10^3/uL (0-0.2); Absolute Eosinophils 0.3 10^3/uL (0-0.7); Absolute Lymphocytes 1.3 10^3/uL (1.2-3.4); Absolute Monocytes 0.8 10^3/uL (0.1-0.6); Absolute Neutrophils 4.7 10^3/uL (1.4-6.5); Hematocrit 30.7 % (37.0-47.0); Mean Corp Hgb Conc. 35.8 g/dL (33.0-37.0); Mean Corpuscular Hgb 32.1 pg (27.0-31.0); Mean Corpuscular Volume 89.5 fL (81.0-99.0); Nucleated Red Blood Cells % 0 %; Platelet Count 106 10^3/uL (130-400); Red Blood Cell Count 3.43 10^6/uL (4.20-5.40); Red Cell Dist. Width 14.2 % (11.5-14.5); White Blood Cell Count 7.2 10^3/uL (4.8-10.8)
[2024-07-18 12:38] LABS: APTT 43.2 Sec (23.4-35.0); INR 1.85; PT 21.2 Sec (11.4-14.6)
[2024-07-18 13:05] LABS: ALT (SGPT) 21 U/L (0-35); AST (SGOT) 50 U/L (14-36); Albumin 3.8 g/dl (3.5-5.0); Alkaline Phosphatase 139 U/L (38-126); Blood Urea Nitrogen 19 mg/dl (7-17); Calcium 8.9 mg/dl (8.4-10.2); Carbon Dioxide 25 mmol/L (22-30); Chloride 103 mmol/L (98-107); Direct Bilirubin 0.3 mg/dl (0.0-0.4); Glucose 143 mg/dl (70-99); HDL Cholesterol 41 mg/dl; LDL Cholesterol, Calculated 54 mg/dl; Potassium 4.1 mmol/L (3.5-5.1); Sodium 138 mmol/L (135-145); Total Bilirubin 0.6 mg/dl (0.2-1.3); Total Cholesterol 108 mg/dl (50-199); Total Protein 7.9 g/dl (6.3-8.2); Triglyceride 68 mg/dl (10-149); Very Low Density Lipoprotein 13 mg/dl (0-30); eGFR > 60.00
[2024-07-18 13:17] LABS: Vitamin D, 25-OH*** 91.9 ng/mL (30-80)
[2024-07-18 13:31] LABS: TSH < 0.02 uIU/ml (0.47-4.68)
[2024-07-18 14:18] LABS: Glycohemoglobin (HgbA1c) 4.7 % (4.0-5.6)
[2024-07-18 15:57] LABS: Folate > 20.0 ng/ml (2.76-20); Vitamin B12 > 1000 pg/ml (239-931)
[2024-07-18 19:49] LABS: AFP Male/Tumor Marker < 0.800 ng/ml
== END ==
LOC: REG 11:47
PROVIDERS: ATTENDING PHYSICIAN Internal Medicine Gastroenterology; FAMILY PHYSICIAN Family Medicine; REFERRING PHYSICIAN Internal Medicine Transplant Hepatology
DX: R53.83 Other fatigue (principal); K70.31 Alcoholic cirrhosis of liver with ascites; R73.01 Impaired fasting glucose; E78.2 Mixed hyperlipidemia; E03.8 Other specified hypothyroidism
CPT/HCPCS: 36415; 80053; 80061; 82105; 82248; 82306; 82607; 82746; 83036; 84443; 85025; 85610; 85730

== ENCOUNTER → 2024-07-26 07:31 | Outpatient (REF) | payer OTHER, SELFPAY | LOC: RADI 07:31 | PROVIDERS: ATTENDING PHYSICIAN Internal Medicine Gastroenterology; FAMILY PHYSICIAN Family Medicine | DX: R18.8 Other ascites (principal); R14.0 Abdominal distension (gaseous); Z53.8 Procedure and treatment not carried out for other reasons | CPT/HCPCS: 76705 ==

== ENCOUNTER → 2024-07-26 07:34 | Outpatient (REF) | payer OTHER, SELFPAY ==
[2024-07-26 11:17] LABS: Free T3 4.26 pg/ml (2.77-5.27); Free T4 0.92 ng/dl (0.78-2.19)
[2024-07-26 11:31] LABS: TSH 0.97 uIU/ml (0.47-4.68)
[2024-07-27 20:49] LABS: Thyroglobulin Antibodies <0.9 IU/mL (0.0-4.0); Thyroid Peroxidase Ab (TPO) 4.5 IU/mL (0.0-9.0)
== END ==
LOC: REG 07:34
PROVIDERS: ATTENDING PHYSICIAN Family Medicine
DX: E03.8 Other specified hypothyroidism (principal)
CPT/HCPCS: 36415; 84439; 84443; 84481; 86376; 86800

== ENCOUNTER → 2024-10-17 11:11 | Outpatient (REF) | payer OTHER, SELFPAY ==
[2024-10-17 12:14] LABS: % Basophils 0.9 % (0-2); % Immature Granulocytes 0.2 % (0-0.5); % Lymphocytes 20.8 % (20.5-51.1); % Monocytes 8.5 % (1.7-9.3); % Neutrophils 64.6 % (42.2-75.2); Absolute Basophils 0.1 10^3/uL (0-0.2); Absolute Eosinophils 0.3 10^3/uL (0-0.7); Absolute Lymphocytes 1.2 10^3/uL (1.2-3.4); Absolute Monocytes 0.5 10^3/uL (0.1-0.6); Absolute Neutrophils 3.6 10^3/uL (1.4-6.5); Hematocrit 31.8 % (37.0-47.0); Hemoglobin 11.4 g/dL (12.0-16.0); Mean Corp Hgb Conc. 35.8 g/dL (33.0-37.0); Mean Corpuscular Hgb 32.8 pg (27.0-31.0); Mean Corpuscular Volume 91.4 fL (81.0-99.0); Mean Platelet Volume 9.3 fL (7.4-10.4); Nucleated Red Blood Cells % 0 %; Platelet Count 103 10^3/uL (130-400); Red Blood Cell Count 3.48 10^6/uL (4.20-5.40); Red Cell Dist. Width 13.7 % (11.5-14.5); White Blood Cell Count 5.6 10^3/uL (4.8-10.8)
[2024-10-17 12:24] LABS: INR 1.17; PT 15.2 Sec (11.4-14.6)
[2024-10-17 12:25] LABS: APTT 39.2 Sec (23.4-35.0)
[2024-10-17 12:35] LABS: ALT (SGPT) 24 U/L (0-35); AST (SGOT) 49 U/L (14-36); Alkaline Phosphatase 123 U/L (38-126); Blood Urea Nitrogen 16 mg/dl (7-17); Carbon Dioxide 29 mmol/L (22-30); Chloride 100 mmol/L (98-107); Direct Bilirubin 0.2 mg/dl (0.0-0.4); GGTP 113 U/L (12-43); Glucose 107 mg/dl (70-99); Sodium 135 mmol/L (135-145); Total Bilirubin 0.7 mg/dl (0.2-1.3); Total Protein 8.4 g/dl (6.3-8.2); eGFR > 60.00
[2024-10-17 17:55] LABS: AFP Male/Tumor Marker < 0.800 ng/ml
== END ==
LOC: REG 11:11
PROVIDERS: ATTENDING PHYSICIAN Internal Medicine Gastroenterology; FAMILY PHYSICIAN Family Medicine; OTHER PHYSICIAN Internal Medicine Transplant Hepatology
DX: K70.31 Alcoholic cirrhosis of liver with ascites (principal)
CPT/HCPCS: 36415; 80053; 82105; 82248; 82977; 85025; 85610; 85730

== ENCOUNTER → 2024-10-27 09:47 | Outpatient (REF) | payer OTHER, SELFPAY | LOC: RAD 09:47 | PROVIDERS: ATTENDING PHYSICIAN Internal Medicine Transplant Hepatology; FAMILY PHYSICIAN Family Medicine; REFERRING PHYSICIAN Internal Medicine Gastroenterology | DX: R18.8 Other ascites (principal); K70.31 Alcoholic cirrhosis of liver with ascites | CPT/HCPCS: 76700 ==

== ENCOUNTER → 2025-01-09 11:54 | Outpatient (REF) | payer OTHER, SELFPAY ==
[2025-01-09 13:08] LABS: Hematocrit 33.8 % (37.0-47.0); Hemoglobin 11.6 g/dL (12.0-16.0); Mean Corp Hgb Conc. 34.3 g/dL (33.0-37.0); Mean Corpuscular Volume 93.1 fL (81.0-99.0); Mean Platelet Volume 9.3 fL (7.4-10.4); Platelet Count 94 10^3/uL (130-400); Red Blood Cell Count 3.63 10^6/uL (4.20-5.40); Red Cell Dist. Width 13.5 % (11.5-14.5); White Blood Cell Count 5.2 10^3/uL (4.8-10.8)
[2025-01-09 13:14] LABS: ALT (SGPT) 17 U/L (0-35); AST (SGOT) 38 U/L (14-36); Albumin 3.9 g/dl (3.5-5.0); Alkaline Phosphatase 114 U/L (38-126); Blood Urea Nitrogen 20 mg/dl (7-17); Calcium 8.8 mg/dl (8.4-10.2); Carbon Dioxide 25 mmol/L (22-30); Chloride 101 mmol/L (98-107); Direct Bilirubin 0.2 mg/dl (0.0-0.4); Glucose 133 mg/dl (70-99); Potassium 4.1 mmol/L (3.5-5.1); Sodium 135 mmol/L (135-145); Total Bilirubin 0.7 mg/dl (0.2-1.3); Total Protein 7.8 g/dl (6.3-8.2); eGFR 57.17
[2025-01-09 13:52] LABS: AFP Male/Tumor Marker 3.11 ng/ml
== END ==
LOC: REG 11:54
PROVIDERS: ATTENDING PHYSICIAN Internal Medicine Gastroenterology; FAMILY PHYSICIAN Family Medicine; OTHER PHYSICIAN Internal Medicine Infectious Disease; OTHER PHYSICIAN Internal Medicine Transplant Hepatology
DX: K70.31 Alcoholic cirrhosis of liver with ascites (principal)
CPT/HCPCS: 36415; 80053; 82105; 82248; 85027

== ENCOUNTER → 2025-01-20 16:41 | Outpatient (REF) | payer OTHER, SELFPAY ==
[2025-01-20 17:21] LABS: % Basophils 0.6 % (0-2); % Eosinophils 3.5 % (0-6); % Immature Granulocytes 0.3 % (0-0.5); % Lymphocytes 16.9 % (20.5-51.1); % Monocytes 11.9 % (1.7-9.3); % Neutrophils 66.8 % (42.2-75.2); Absolute Eosinophils 0.2 10^3/uL (0-0.7); Absolute Lymphocytes 1.1 10^3/uL (1.2-3.4); Absolute Monocytes 0.8 10^3/uL (0.1-0.6); Absolute Neutrophils 4.2 10^3/uL (1.4-6.5); Hematocrit 32.9 % (37.0-47.0); Hemoglobin 11.9 g/dL (12.0-16.0); Mean Corp Hgb Conc. 36.2 g/dL (33.0-37.0); Mean Corpuscular Hgb 32.9 pg (27.0-31.0); Mean Corpuscular Volume 90.9 fL (81.0-99.0); Mean Platelet Volume 9.6 fL (7.4-10.4); Nucleated Red Blood Cells % 0 %; Platelet Count 116 10^3/uL (130-400); Red Blood Cell Count 3.62 10^6/uL (4.20-5.40); Red Cell Dist. Width 13.4 % (11.5-14.5); White Blood Cell Count 6.3 10^3/uL (4.8-10.8)
[2025-01-20 17:26] LABS: INR 1.17; PT 15.2 Sec (11.4-14.6)
[2025-01-20 17:27] LABS: APTT 34.5 Sec (23.4-35.0)
[2025-01-20 17:43] LABS: ALT (SGPT) 16 U/L (0-35); AST (SGOT) 40 U/L (14-36); Albumin 3.7 g/dl (3.5-5.0); Alkaline Phosphatase 134 U/L (38-126); Blood Urea Nitrogen 19 mg/dl (7-17); Calcium 9.3 mg/dl (8.4-10.2); Carbon Dioxide 29 mmol/L (22-30); Chloride 103 mmol/L (98-107); Glucose 114 mg/dl (70-99); HDL Cholesterol 56 mg/dl; LDL Cholesterol, Calculated 48 mg/dl; Potassium 4.3 mmol/L (3.5-5.1); Sodium 137 mmol/L (135-145); Total Bilirubin 0.7 mg/dl (0.2-1.3); Total Cholesterol 119 mg/dl (50-199); Triglyceride 77 mg/dl (10-149); Very Low Density Lipoprotein 15 mg/dl (0-30); eGFR > 60.00
[2025-01-20 18:00] LABS: Free T4 0.89 ng/dl (0.78-2.19)
[2025-01-20 18:14] LABS: TSH < 0.02 uIU/ml (0.47-4.68)
[2025-01-21 09:48] LABS: Glycohemoglobin (HgbA1c) 4.8 % (4.0-5.6)
[2025-01-22 19:56] LABS: Total T3 (Sendout) 127 ng/dL (80-200)
== END ==
LOC: REG 16:41
PROVIDERS: ATTENDING PHYSICIAN Internal Medicine Gastroenterology; FAMILY PHYSICIAN Family Medicine; OTHER PHYSICIAN Internal Medicine Infectious Disease; REFERRING PHYSICIAN Internal Medicine Transplant Hepatology
DX: K74.69 Other cirrhosis of liver (principal); R73.01 Impaired fasting glucose; E78.2 Mixed hyperlipidemia; E03.8 Other specified hypothyroidism
CPT/HCPCS: 36415; 80053; 80061; 83036; 84439; 84443; 84480; 85025; 85610; 85730

== ENCOUNTER 2025-01-31 06:27 | Day surgery (SDC) | payer OTHER, SELFPAY | END 2025-01-31 13:14 | disposition home or self-care (01) | LOC: GI 06:27 | PROVIDERS: ATTENDING PHYSICIAN Internal Medicine Gastroenterology | DX: Z12.11 Encounter for screening for malignant neoplasm of colon (principal); K64.0 First degree hemorrhoids; K57.30 Diverticulosis of large intestine without perforation or abscess without bleeding; D12.3 Benign neoplasm of transverse colon; D12.0 Benign neoplasm of cecum; D12.2 Benign neoplasm of ascending colon; D12.4 Benign neoplasm of descending colon; K63.5 Polyp of colon; Z86.0100 Personal history of colon polyps, unspecified; Z98.890 Other specified postprocedural states | CPT/HCPCS: 45385; 45380; 88305 ==

== ENCOUNTER → 2025-04-06 13:27 | Outpatient (REF) | payer OTHER, SELFPAY ==
[2025-04-06 14:37] LABS: Blood Urea Nitrogen 14 mg/dl (7-17); Carbon Dioxide 24 mmol/L (22-30); Chloride 104 mmol/L (98-107); Glucose 89 mg/dl (70-99); Potassium 4.2 mmol/L (3.5-5.1); Sodium 134 mmol/L (135-145); eGFR > 60.00
== END ==
LOC: RAD 13:27
PROVIDERS: ATTENDING PHYSICIAN Internal Medicine Gastroenterology; FAMILY PHYSICIAN Family Medicine
DX: K70.31 Alcoholic cirrhosis of liver with ascites (principal); K74.69 Other cirrhosis of liver
CPT/HCPCS: 36415; 76700; 80048

== ENCOUNTER → 2025-07-17 11:36 | Outpatient (REF) | payer OTHER, SELFPAY ==
[2025-07-17 13:59] LABS: APTT 33.2 Sec (23.4-35.0); INR 1.18; PT 15.3 Sec (11.4-14.6)
[2025-07-17 14:56] LABS: Hematocrit 34.9 % (37.0-47.0); Hemoglobin 12.3 g/dL (12.0-16.0); Mean Corp Hgb Conc. 35.2 g/dL (33.0-37.0); Mean Corpuscular Volume 93.6 fL (81.0-99.0); Nucleated Red Blood Cells % 0 %; Platelet Count 82 10^3/uL (130-400); Red Cell Dist. Width 13.7 % (11.5-14.5)
[2025-07-17 15:04] LABS: ALT (SGPT) 15 U/L (0-35); AST (SGOT) 40 U/L (14-36); Albumin 3.9 g/dl (3.5-5.0); Alkaline Phosphatase 110 U/L (38-126); Blood Urea Nitrogen 13 mg/dl (7-17); Calcium 8.3 mg/dl (8.4-10.2); Carbon Dioxide 28 mmol/L (22-30); Chloride 102 mmol/L (98-107); Glucose 121 mg/dl (70-99); Potassium 3.3 mmol/L (3.5-5.1); Sodium 136 mmol/L (135-145); Total Protein 7.8 g/dl (6.3-8.2)
[2025-07-17 15:05] LABS: eGFR > 60.00
[2025-07-17 15:19] LABS: TSH 2.52 uIU/ml (0.47-4.68)
[2025-07-17 15:55] LABS: Folate > 20.0 ng/ml (2.76-20); Vitamin B12 780 pg/ml (239-931)
[2025-07-20 03:36] LABS: Total T3 (Sendout) 107 ng/dL (80-200)
== END ==
LOC: REG 11:36
PROVIDERS: ATTENDING PHYSICIAN Internal Medicine Gastroenterology; FAMILY PHYSICIAN Family Medicine
DX: K74.69 Other cirrhosis of liver (principal); K70.31 Alcoholic cirrhosis of liver with ascites; K74.60 Unspecified cirrhosis of liver; R18.8 Other ascites; E03.8 Other specified hypothyroidism; E78.2 Mixed hyperlipidemia; E53.8 Deficiency of other specified B group vitamins
CPT/HCPCS: 36415; 80053; 82248; 82607; 82746; 84439; 84443; 84480; 85025; 85610; 85730

== ENCOUNTER 2025-08-08 06:22 | Day surgery (SDC) | payer OTHER, SELFPAY | END 2025-08-08 14:25 | disposition home or self-care (01) | LOC: GI 06:22 | PROVIDERS: ATTENDING PHYSICIAN Internal Medicine Gastroenterology | DX: Z12.11 Encounter for screening for malignant neoplasm of colon (principal); K57.30 Diverticulosis of large intestine without perforation or abscess without bleeding; K64.8 Other hemorrhoids; K64.9 Unspecified hemorrhoids; D12.3 Benign neoplasm of transverse colon; D12.4 Benign neoplasm of descending colon; K63.5 Polyp of colon; Z86.0100 Personal history of colon polyps, unspecified | CPT/HCPCS: 45385; 45380; 88305 ==